=== PATIENT | male | born 1965 | race Caucasian/White ===

== ENCOUNTER 2021-07-06 12:08 | Emergency (ER) | payer MEDICARE, MEDICAID, SELFPAY ==
[2021-07-06 12:11] VITALS: BP 127/72; PULSE 98; RESP 17; TEMP 36.1; O2SAT 92; BMI 51.0
--- NOTE | 2021-07-06 12:28 | CT_ITS ---
STUDY: CTA CHEST REASON FOR EXAM: Male, 55 years old. 2 day history of hemoptysis. Known lung mass. RADIATION DOSAGE (If Supplied By Facility): CTDIvol = ( 26.50 ) mGy, DLP = ( 818.69 ) mGycm TECHNIQUE: The examination was performed with the intravenous administration of IV 100mL Isovue-370. Post-processing of the angiographic images was performed, with multiplanar reformation and 3D reconstruction. Individualized dose optimization techniques were used for this CT. COMPARISON: None. FINDINGS: Normal enhancement of the main pulmonary artery and right and left pulmonary arteries. Normal enhancement of the bilateral peripheral pulmonary arteries. There is no demonstrated pulmonary embolism. Normal thoracic aorta and visualized great vessels. There is no demonstrated aortic dissection. Normal heart and pericardium. Normal mediastinum. Normal hilar regions. Normal visualized trachea and bronchi. Volume loss in the left hemithorax. Consolidation and mass lesion in the left hilar region with overlying loss and airspace disease in the left upper lobe and lingular segment of the left upper lobe. Loculated pleural effusion. Wedge-shaped infiltrate in the anterior aspect of the left lower lobe. Normal chest wall structures. There are degenerative changes of thoracic spine. The patient is status post cholecystectomy. Small hiatal hernia. CT/CTA Chest W/WO Contrast IMPRESSION: Mass and volume loss in the left perihilar region. Obstructive atelectasis/pneumonitis in the lingular segment of the left upper lobe as well as the left upper lobe. Loculated left pleural effusion. Electronically Signed: Jovany Rasmussen MD at 13:47 EDT ,
[2021-07-06 12:29] VITALS: BP 87/60; PULSE 85; RESP 18; O2SAT 86
--- NOTE | 2021-07-06 12:32 | EDS_ITS ---
HPI <REBECCA Valadez - Last Filed: 07/06/21 14:49> History of Present Illness Chief Complaint: Cough Narrative Narrative: 55-year-old male with history of obesity, hyperlipidemia, diabetes, congestive heart failure, chronic pain syndrome presents to the emergency department with complaints of coughing up blood. Patient was seen 3 months ago for shortness of breath, patient was seen at another facility, patient was diagnosed with a mass to his lung on CAT scan, was told to follow-up however never did. Patient states that no one called him. Patient states that for the last 2 days, he has been unable to sleep because every time he lays flat he is choking and when he coughs it is blood sputum. Patient denies any fevers or chills. Patient denies any worsening shortness of breath, chest pain, lower extremity swelling. PFSH <REBECCA Valadez - Last Filed: 07/06/21 14:49> PFSH Home Medications cephalexin 500 mg PO Q6 #40 capsule 02/10/16 [Rx Last Taken Unknown] sulfamethoxazole-trimethoprim 1 tab PO BID #20 tablet 02/10/16 [Rx Last Taken Unknown] albuterol sulfate 1 mg INHALATION Q8H PRN PRN 07/06/21 [History Last Taken Unkno wn] ammonium lactate 1 applic TOPICAL TID 07/06/21 [History Last Taken Unknown] atorvastatin 80 mg PO QHS 07/06/21 [History Last Taken Unknown] fluticasone propion-salmeterol [Advair HFA] 1 puff INHALATION BID 07/06/21 [History Last Taken Unknown] fluticasone propionate 1 spray INTRANASAL DAILY 07/06/21 [History Last Taken Unknown] furosemide 20 mg PO DINNER 07/06/21 [History Last Taken Unknown] furosemide 40 mg PO BREAKFAST 07/06/21 [History Last Taken Unknown] hydrocodone-acetaminophen 1 - 2 tab PO Q6H PRN PRN 07/06/21 [History Last Taken Unknown] levofloxacin 750 mg PO DAILY #7 tab 07/06/21 [Rx Last Taken Unknown] lisinopril 10 mg PO DAILY 07/06/21 [History Last Taken Unknown] metformin 750 mg PO DAILY 07/06/21 [History Last Taken Unknown] pantoprazole 20 mg PO DAILY 07/06/21 [History Last Taken Unknown] potassium chloride 20 meq PO DAILY 07/06/21 [History Last Taken Unknown] semaglutide [Ozempic] mg SUBCUT 07/06/21 [History Last Taken Unknown] semaglutide [Ozempic] mg SUBCUT QWEEK 07/06/21 [History Last Taken Unknown] Allergy/AdvReac Type Severity Reaction Status Date / Time No Known Allergies Allergy Verified 07/06/21 12:10 Social History Smoking Status: Current every day smoker tobacco type: cigarettes ROS <REBECCA Valadez - Last Filed: 07/06/21 14:49> ROS ED ROS Narrative Constitutional: Negative for fever, chills, weight loss, weakness Eyes: Negative for vision loss, vision change, double vision ENT: Negative for any sore throat, ear pain, congestion Cardiovascular: Negative for any chest pain, tightness, palpitations, racing heartbeat Respiratory: Negative for any shortness of breath, shortness of breath on exertion. Positive for cough, sputum production, hemoptysis, orthopnea Gastrointestinal: Negative for any abdominal pain, nausea, vomiting, diarrhea, constipation, blood in stool, blood in vomit : Negative for any urinary frequency, incontinence, dysuria, retention, blood in urine Muscle skeletal: Negative for any muscle joint pain, stiffness, myalgias, arthralgias, neck pain, back pain Neurological: Negative for any headache, dizziness, syncope, numbness or tingling Skin: Negative for any rashes, lumps, itching, abrasions, lacerations Psychiatric: Negative for any depression, anxiety, stress, suicidal ideation, homicidal ideation Hematologic: Negative for any easy bruising, excessive bruising, easy bleeding Allergies: Negative for any eczema, hives, rash EXAM <REBECCA Valadez - Last Filed: 07/06/21 14:49> Physical Exam Narrative Exam Narrative: Vital signs reviewed. Patient is sitting in room, patient is in no distress. Patient is able to talk but senses. Patient body habitus is large HEET: Head normocephalic atraumatic, TMs clear bilaterally. Posterior pharynx is clear, moist mucous membranes. Nares clear bilaterally. Neck: Supple with no lymphadenopathy or tenderness. No signs of meningismus, negative jolt sign. Cardiac: Regular rate and rhythm no murmurs gallops or rubs, equal peripheral pulses bilaterally. Respiratory: Patient does have clear left lung, patient's right lung was somewhat diminished. Negative for any wheezing, crackles.. No chest tenderness. Abdomen: Soft, nontender, nondistended. No abdominal bruit or pulsatile masses. No hepatosplenomegaly Extremities: No peripheral edema, no signs of gross trauma or deformity. Active full range of motion of all extremities. Neuro: Cranial nerves II through XII intact, no focal neurological deficits. Skin: Clean dry and intact with no rash, purpura, petechiae, vesicles or pustules. Backslash flank: No CVA tenderness, no midline spinal tenderness, no deformity. Psych: Normal mood and affect. No SI, HI or acute psychosis. Const Vital Signs: 07/06/21 12:11 07/06/21 12:29 07/06/21 12:54 Temperature 97.0 F L Temperature Source Temporal Pulse Rate 98 85 Respiratory Rate 17 18 Respiratory Effort Normal Respiratory Depth Normal Respiratory Pattern Normal Blood Pressure 127/72 H 87/60 L Blood Pressure Mean 90 69 Pulse Ox 92 86 Oxygen Delivery Method Room Air Room Air Room Air Oxygen Flow Rate (L/min) 07/06/21 13:10 07/06/21 14:14 07/06/21 14:50 Temperature Temperature Source Pulse Rate 84 77 80 Respiratory Rate 20 H 17 19 H Respiratory Effort Respiratory Depth Respiratory Pattern Blood Pressure 100/62 112/61 107/72 Blood Pressure Mean 74 78 Pulse Ox 95 93 97 Oxygen Delivery Method Nasal Cannula Room Air Oxygen Flow Rate (L/min) 3 <Clinton Chavez MD - Last Filed: 07/06/21 22:01> Physical Exam Const Vital Signs: 07/06/21 12:11 07/06/21 12:29 07/06/21 12:54 Temperature 97.0 F L Temperature Source Temporal Pulse Rate 98 85 Respiratory Rate 17 18 Respiratory Effort Normal Respiratory Depth Normal Respiratory Pattern Normal Blood Pressure 127/72 H 87/60 L Blood Pressure Mean 90 69 Pulse Ox 92 86 Oxygen Delivery Method Room Air Room Air Room Air Oxygen Flow Rate (L/min) 07/06/21 13:10 07/06/21 14:14 07/06/21 14:50 Temperature Temperature Source Pulse Rate 84 77 80 Respiratory Rate 20 H 17 19 H Respiratory Effort Respiratory Depth Respiratory Pattern Blood Pressure 100/62 112/61 107/72 Blood Pressure Mean 74 78 Pulse Ox 95 93 97 Oxygen Delivery Method Nasal Cannula Room Air Oxygen Flow Rate (L/min) 3 [facility] <REBECCA Valadez - Last Filed: 07/06/21 14:49> [facility] Narrative Medical decision making narrative: Patient appears well, patient appears nontoxic, vital signs are stable. While patient was resting in the room, patient did drop to 87% on pulse oxygenation, patient states he does have oxygen at home as well as a portable. Patient secondary to knowing he has a lung mass did receive a full respiratory work-up with a CTA chest. Patient's CBC was unremarkable, patient's chemistry showed hyponatremia with slight low chloride. Patient's CT scan of the chest with IV contrast showed a mass and volume loss in left perihilar region. Obstructive atelectasis/pneumonitis in the lingula segment of the left upper lobe as well as left upper lobe. Loculated left pleural effusion. I did speak with the hospitalist, due to the patient having oxygen at home, this work-up for the mass in his lungs can be worked up outpatient. Patient is aware and is happy with the plan of care. Patient will follow up with Dr. Correa with pulmonology. Patient given strict return precautions to return for any signs or symptoms of infection. Patient will be placed on a 7-day course of Levaquin and will contact his primary care doctor today or tomorrow to have this set up with Dr. Correa. He will use his oxygen that he has at home and instructed return for any worsening concerns. Lab Data Attestation: I reviewed the patient's lab results. Labs: Laboratory Results - last 24 hr 07/06/21 07/06/21 07/06/21 12:39 12:39 12:39 WBC 5.7 RBC 5.14 Hgb 13.0 Hct 44.3 MCV 86.2 MCH 25.3 L MCHC 29.3 L RDW Std Deviation 58.4 H RDW Coeff of Jean-Paul 18.7 H Plt Count 125 L MPV 9.2 Immature Gran % (Auto) 0.200 Neut % (Auto) 72.5 H Lymph % (Auto) 19.1 Wright % (Auto) 6.4 Eos % (Auto) 1.4 Baso % (Auto) 0.4 Absolute Neuts (auto) 4.1 Absolute Lymphs (auto) 1.08 Nucleated RBC % 0 Sodium 132 L Potassium 4.2 Chloride 93 L Carbon Dioxide 36.0 H Anion Gap 3 L BUN 9 Creatinine 0.76 Estim Creat Clear Calc 107.24 Est GFR (MDRD) Af Amer 137 Est GFR (MDRD) Non-Af 113 BUN/Creatinine Ratio 11.9 Glucose 144 H Calcium 8.6 B-Natriuretic Peptide 32.1 Radiography Diagnostic Testing: Clinical Impression(s) from Imaging Studies Chest CTA 07/06/21 12:28 IMPRESSION: Mass and volume loss in the left perihilar region. Obstructive atelectasis/pneumonitis in the lingular segment of the left upper lobe as well as the left upper lobe. Loculated left pleural effusion. Electronically Signed: Jovany Rasmussen MD at 13:47 EDT , <Clinton Chavez MD - Last Filed: 07/06/21 22:01> [facility] MDM Narrative Medical decision making narrative: I have personally performed a face to face assessment of the patient and have reviewed the JOIE Note. I performed a substantive portion of the visit including all aspects of the following. My watters findings include: History is diagnosed with left lung mass 3 months ago after double pneumonia. Has not been able to follow-up. Presents with hemoptysis. Exam is [afebrile. Vital signs noted. No active hemoptysis. Regular rate and rhythm. Decreased breath sounds left lung.] Medical Decision Making [check labs. Check CTA. Discussed with pulmonology and hospitalist. Inpatient bronchoscopy unavailable. Patient has oxygen at home. Discharged to follow-up with pulmonology as an outpatient for bronchoscopy.] Other additions or changes: [None] Lab Data Attestation: I reviewed the patient's lab results. Labs: Laboratory Results - last 24 hr 07/06/21 07/06/21 07/06/21 12:39 12:39 12:39 WBC 5.7 RBC 5.14 Hgb 13.0 Hct 44.3 MCV 86.2 MCH 25.3 L MCHC 29.3 L RDW Std Deviation 58.4 H RDW Coeff of Jean-Paul 18.7 H Plt Count 125 L MPV 9.2 Immature Gran % (Auto) 0.200 Neut % (Auto) 72.5 H Lymph % (Auto) 19.1 Wright % (Auto) 6.4 Eos % (Auto) 1.4 Baso % (Auto) 0.4 Absolute Neuts (auto) 4.1 Absolute Lymphs (auto) 1.08 Nucleated RBC % 0 Sodium 132 L Potassium 4.2 Chloride 93 L Carbon Dioxide 36.0 H Anion Gap 3 L BUN 9 Creatinine 0.76 Estim Creat Clear Calc 107.24 Est GFR (MDRD) Af Amer 137 Est GFR (MDRD) Non-Af 113 BUN/Creatinine Ratio 11.9 Glucose 144 H Calcium 8.6 B-Natriuretic Peptide 32.1 Radiography Diagnostic Testing: Clinical Impression(s) from Imaging Studies Chest CTA 07/06/21 12:28 IMPRESSION: Mass and volume loss in the left perihilar region. Obstructive atelectasis/pneumonitis in the lingular segment of the left upper lobe as well as the left upper lobe. Loculated left pleural effusion. Electronically Signed: Jovany Rasmussen MD at 13:47 EDT , Discharge Plan Triage Chief Complaint: Cough ED Midlevel Provider: aSm Mckeon ED Provider: Clinton Chavez Dx/Rx/DC Orders Clinical Impression: Lung mass, Pleural effusion, left, Pneumonitis Instructions: What Is Lung Cancer?, ED Pleural Effusion, ED Pneumonia (Adult) Prescriptions: New levofloxacin 750 mg tablet 750 mg PO DAILY Qty: 7 RF: 0 No Action sulfamethoxazole-trimethoprim 1 TABLET tablet 1 tab PO BID Qty: 20 RF: 0 cephalexin 500 MG capsule 500 mg PO Q6 Qty: 40 RF: 0 furosemide 40 mg tablet 40 mg PO BREAKFAST RF: 0 atorvastatin 80 mg tablet 80 mg PO QHS RF: 0 hydrocodone-acetaminophen 5-325 mg tablet 1 - 2 tab PO Q6H PRN PRN (Reason: Pain) RF: 0 pantoprazole 20 mg tablet,delayed release (DR/EC) 20 mg PO DAILY RF: 0 lisinopril 10 mg tablet 10 mg PO DAILY RF: 0 ammonium lactate 12 % cream 1 applic TOPICAL TID RF: 0 fluticasone propionate 50 mcg/actuation spray,suspension 1 spray INTRANASAL DAILY RF: 0 metformin 750 mg tablet extended release 24 hr 750 mg PO DAILY RF: 0 Advair HFA 115-21 mcg/actuation HFA aerosol inhaler 1 puff INHALATION BID RF: 0 potassium chloride 20 mEq tablet extended release 20 meq PO DAILY RF: 0 Ozempic 1 mg/dose (4 mg/3 mL) pen injector SUBCUT RF: 0 furosemide 40 mg tablet 20 mg PO DINNER RF: 0 albuterol sulfate 2.5 mg /3 mL (0.083 %) solution for nebulization 1 mg inhalation Q8H PRN PRN (Reason: Shortness Of Breath) RF: 0 Ozempic 1 mg/dose (4 mg/3 mL) pen injector SUBCUT QWEEK RF: 0 Primary Care Provider: Milena Guevara Referrals: Ag Correa MD [STAFF PHYSICIAN] - 3-5 Days Milena Guevara DO [Primary Care Provider] - Activity Restrictions/Additional Instructions: You are going to be discharged today, you will be using your at home oxygen because you are hypoxic. You will be placed on antibiotics called [facility] for any pneumonia. I am concerned that you have lung cancer, you need to follow-up with your PCP, and have them talk to the station engineer main line that I referred you to. You need to return here for any worsening problems, difficulty breathing, fever or chills. Print Language: Andorran Disposition Disposition: Home, Self Care Discharge Date/Time: 07/06/21 14:57
[2021-07-06 12:47] LABS: Absolute Lymphocyte Count 1.08 X10^3/uL (0.83-4.51); Absolute Neutrophil Count 4.1 X10^3/uL (2.0-7.7); Basophil# 0.02 X10^3/uL; Basophil% 0.4 % (0-1); Eosinophil# 0.08 X10^3/uL; Eosinophils% 1.4 % (0-5); Hematocrit 44.3 % (40-54); Lymphocyte # 1.08 X10^3/ul (0.83-4.51); Lymphocyte % 19.1 % (19-41); Mean Corp Hgb Conc 29.3 g/dL (32-36); Mean Corpuscular Hgb 25.3 pg (27.0-32.0); Mean Corpuscular Volume 86.2 fL (80-94); Mean Platelet Vol. 9.2 fl (6.2-12.0); Monocyte# 0.36 X10^3/uL; Monocyte% 6.4 % (0-10); NRBC Flagged by Analyzer 0 % (0-5); Neutrophil % 72.5 % (47-70); Platelet Count 125 K/mm3 (150-450); RBC Distribution Width CV 18.7 % (11.6-14.6); RBC Distribution Width SD 58.4 fl (35.1-43.9); Red Blood Count 5.14 M/mm3 (4.6-6.2); White Blood Count 5.7 K/mm3 (4.4-11.0)
[2021-07-06 12:54] VITALS: O2SAT 86
[2021-07-06 13:00] LABS: Anion Gap 3 (5-15); BUN 9 mg/dL (7-18); BUN/Creat Ratio 11.9 RATIO (10-20); Calcium,Total 8.6 mg/dL (8.5-10.1); Chloride 93 mmol/L (98-107); Creatinine, Serum 0.76 mg/dL (0.70-1.30); EST Glomerular Filtration Rate 113 mL/min (>60); Est Glom Filt Rate - Afr Amer 137 mL/min (>60); Estimated Creatinine Clearance 107.24 ml/min; Glucose 144 mg/dL (74-106); Potassium 4.2 mmol/L (3.5-5.1); Sodium Level 132 mmol/L (136-145)
[2021-07-06 13:04] LABS: BNP,B-Type NATRIURETIC PEPTIDE 32.1 pg/mL (0-100)
[2021-07-06 13:10] VITALS: BP 100/62; PULSE 84; RESP 20; O2SAT 95
--- NOTE | 2021-07-06 14:10 | NURSING ---
DR ANDREWS FOR ER DOC
[2021-07-06 14:14] VITALS: BP 112/61; PULSE 77; RESP 17; O2SAT 93
[2021-07-06 14:50] VITALS: BP 107/72; PULSE 80; RESP 19; O2SAT 97
== END 2021-07-06 14:57 | disposition home or self-care (01) ==
PROVIDERS: Nurse Practitioner; Emergency Provider Emergency Medicine; PCP Family Medicine; Visit Provider Emergency Medicine
DX: R91.8 Other nonspecific abnormal finding of lung field (principal); I50.9 Heart failure, unspecified; E11.9 Type 2 diabetes mellitus without complications; J90 Pleural effusion, not elsewhere classified; J18.9 Pneumonia, unspecified organism; E66.9 Obesity, unspecified; E78.5 Hyperlipidemia, unspecified; G89.4 Chronic pain syndrome; Z79.899 Other long term (current) drug therapy; Z79.82 Long term (current) use of aspirin; F17.210 Nicotine dependence, cigarettes, uncomplicated; E87.1 Hypo-osmolality and hyponatremia
CPT/HCPCS: 71275; 80048; 83880; 85025; 87428; 99284; Q9967

== ENCOUNTER → 2021-07-25 | Outpatient (CLI) | payer MEDICARE, MEDICAID, SELFPAY ==
[2021-07-25 11:26] LABS: Platelet Count 124 K/mm3 (150-450)
[2021-07-25 11:38] LABS: International Normalized Ratio 1.1; Prothrombin Time (Protime)PT. 13.4 SECONDS (11.7-14.9)
== END | disposition home or self-care (01) ==
LOC: PAVLAB 11:00
PROVIDERS: PCP Family Medicine; Referring Provider Internal Medicine Critical Care Medicine; Visit Provider Internal Medicine Critical Care Medicine
DX: J90 Pleural effusion, not elsewhere classified (principal)
CPT/HCPCS: 36415; 85049; 85610

== ENCOUNTER 2021-07-28 16:47 | Observation (INO) | payer MEDICARE, SELFPAY ==
--- NOTE | 2021-07-24 06:08 | PCM.HP.STD ---
HPI - General HPI Narrative The patient is a 55-year-old male who initially presented to the outpatient pulmonary clinic on July 13 in referral for the evaluation of a lung mass. The patient was recently evaluated in the emergency department on July 06 after having presented with hemoptysis. CTA chest showed no evidence for pulmonary embolism, but did demonstrate a loculated left-sided pleural effusion along with what appears to be a left hilar lung mass with subsequent collapse of the left upper lobe. Ironically, in April 2021, the patient was admitted to [facility] with suspected pneumonia. A CTA chest was completed at that time as well and demonstrated a large left hilar lung mass measuring approximately 6 x 6.6 cm causing left upper lobe bronchus obstruction and subsequent collapse. The patient was supposed to follow-up for further work-up after his discharge, but failed to do so until his office visit on July 13. The patient has an approximate [id number] smoking history and continues to smoke 2 to 3 cigarettes/day. 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 The patient is now on disability. There has been concerned that the patient has underlying sleep apnea, along with heart failure with preserved ejection fraction. Nevertheless, the patient has never completed a sleep study, as he is not interested in utilizing any form of nocturnal Pap therapy. In light of the patient's tobacco abuse history and CT imaging raising concern for potential malignancy, discussion was undertaken regarding the need for direct tissue biopsy for further evaluation. [facility] Medical History Abnormal EKG Arthralgia of hand BMI 50.0-59.9, adult Chronic back pain greater than 3 months duration Diastolic congestive heart failure Fatigue GERD (gastroesophageal reflux disease) History of chronic respiratory failure History of rectal bleeding Neck muscle spasm Non-insulin dependent type 2 diabetes mellitus Osteoarthritis Polycythemia secondary to smoking Seasonal allergies Secondary restless legs syndrome Sleep apnea, obstructive Smoker Thrombocytopenia Home Medications albuterol sulfate 1 mg INHALATION Q8H PRN PRN 07/06/21 [History Last Taken Unknown] ammonium lactate 1 applic TOPICAL TID 07/06/21 [History Last Taken Unknown] atorvastatin 80 mg PO QHS 07/06/21 [History Last Taken Unknown] fluticasone propion-salmeterol [Advair HFA] 1 puff INHALATION BID 07/06/21 [History Last Taken Unknown] fluticasone propionate 1 spray INTRANASAL DAILY 07/06/21 [History Last Taken Unknown] furosemide 20 mg PO DINNER 07/06/21 [History Last Taken Unknown] furosemide 40 mg PO BREAKFAST 07/06/21 [History Last Taken Unknown] hydrocodone-acetaminophen 1 - 2 tab PO Q6H PRN PRN 07/06/21 [History Last Taken Unknown] lisinopril 10 mg PO DAILY 07/06/21 [History Last Taken Unknown] metformin 750 mg PO DAILY 07/06/21 [History Last Taken Unknown] pantoprazole 20 mg PO DAILY 07/06/21 [History Last Taken Unknown] potassium chloride 20 meq PO DAILY 07/06/21 [History Last Taken Unknown] aspirin 325 mg tablet 325 mg PO DAILY 07/12/21 [History Last Taken Unknown] magnesium oxide 420 mg tablet 420 mg PO DAILY 07/12/21 [History Last Taken Unknown] semaglutide 1 mg/dose (2 mg/1.5 mL) subcutaneous pen injector 1 mg SUBCUT QWEEK 07/12/21 [History Last Taken Unknown] Allergy/AdvReac Type Severity Reaction Status Date / Time No Known Allergies Allergy Verified 07/13/21 11:21 Family History Mother Heart disease Father Diabetes Brother Heart disease Surgical History Hx laparoscopic cholecystectomy Social History (Updated 07/13/21 @ 11:22 by Marcella Sultana) Smoking Status: Current some day smoker tobacco type: cigarettes Tobacco: How many years used: 40 ROS ROS Narrative As per HPI. Review of Systems ROS Unobtainable: other Physical Exam Const alert and no apparent distress General Appearance: cooperative HEENT normocephalic, head/scalp atraumatic and EAC's normal Eyes PERRL and EOMs intact bilaterally Neck supple General: trachea midline Resp normal respiratory effort Auscultation: diminished lung sounds Cardio regular rate and regular rhythm GI normal to inspection, nondistended, normoactive bowel sounds Extremity no clubbing, cyanosis or edema Skin no rashes or lesions noted Neuro no focal motor deficits Psych affect normal Appearance: appropriate Assessment & Plan Assessment/Plan (1) Lung mass: PLAN: The patient presented to our office on July 13 for the evaluation of a left hilar lung mass leading to left upper lobe collapse, which was initially identified on outside CT imaging in April. However, the patient failed to follow-up. He then presented to the emergency department approximately 1 week ago with hemoptysis. Repeat imaging was obtained and again demonstrated the left hilar lung mass and a small left sided loculated effusion. In light of the patient's smoking history, these findings are certainly concerning for malignancy. Therefore, I did recommend that we proceed with bronchoscopy to facilitate tissue sampling. EBUS will be employed as well to assess the mediastinum. Following a discussion regarding the risks and benefits of the procedure, the patient is in agreement to proceed.
[2021-07-28] VITALS (26 sets, daily range): BP systolic 98–147; BP diastolic 51–83; PULSE 73–92; RESP 12–33; TEMP 36.3–36.7; O2SAT 78–100; BMI 50.8
--- NOTE | 2021-07-28 | IMM_PTH ---
PATIENT: SHAAN WHITAKER LOC: PCU U#:[id number] AGE/SX: 55/M ROOM: [facility] RE07/28/[address]: Dr. Chris Kingsley DO : 1965 BED: 1 DIS: 07/29/2021 SPEC #: [id number] RECD: 07/31/21 10:28 STATUS: SOUFatemeh REQ #: [id number] [place]: 07/28/21 00:[address]: Chris Kingsley DEPT: IMMUNOHISTOCHEMISTRY RECD BY: Oksana Frazier ENTERED: 07/31/21 10:31 SP TYPE: IMMUNO OTHR DR: MD Dr. Nilson Waldron MD Dr. Jenna Frakowski, DO Jamila Moreno, DIPLOMATIC INTERPRETER/TRANSLATOR-C Tissues: C - Left upper lobe of lung, NOS Procedures: NAPSIN A (add) CK20 (add) CK5-6 (add) CK7 (add) CK8 (add) MORENO-2 (add) KI-67 (add) P53 (add) TTF1 (add) Pankeratin (initial) P40 (add) CDX2 (add) PHYSICIAN & INSTITUTION [place] [id number] SPECIMEN INFORMATION: Tissue Source: C ? Endobronchial biopsy Clinical Info: Lung mass Specimen Number: [id number] CPT code: 80340, 52234 x11 METHODOLOGY: Deparaffinized sections of prefer/formalin-fixed tissue or PAP/DQ stained slides are incubated with monoclonal/polyclonal antibodies/oligonucleotide probes. Localization is made via biotin free immunoperoxidase method. Appropriate controls are performed and reacted as expected. Results on target cell population are indicated in the following table: RESULTS: ANTIBODY / CLONE RESULT Block C AE1-3 (AE1/AE3/PCK26) positive CK7 (OV-TL12/30) negative CK8 ([id number]) positive CK20 (KS20.8) negative MORENO-2 (SP21) negative CDX2 ([id number]) negative TTF-1 (8G7G3/1) negative Napsin A (Rabbit Polyclonal) negative CK5-6 (D5 & 1684) positive P40 (BC28) positive P53 (DO-7) negative Ki-67 (30-9) positive, 75% These tests were developed and their performance characteristics determined by [facility]. They may not have been cleared or approved by the U.S. Food and Drug Administration. The FDA has determined that such clearance or approval is not necessary. The above immunohistochemical/dualISH markers are ordered and reviewed by the Pathologist. INTERPRETATION: Desiree Endobronchial biopsy: Squamous cell carcinoma. AM:shelbi 08/01/2021
[2021-07-28] MEDS: Lactated Ringers 1,000 ML 30 ML IV (11:40)
--- NOTE | 2021-07-28 12:00 | ASPIGT_PTH ---
PATIENT: SHAAN WHITAKER LOC: [facility] U#:[id number] AGE/SX: 55/M ROOM: [facility] RE07/28/[address]: Dr. Chris Kingsley DO : 1965 BED: 1 DIS: 07/29/2021 SPEC #: [id number] RECD: 07/28/21 13:29 STATUS: CHRISTINA REQ #: [id number] LAMONT: 07/28/21 12:[address]: Chris Kingsley DEPT: SURGICAL PATHOLOGY RECD BY: Cat Givens ENTERED: 07/28/21 13:31 SP TYPE: ASP RAD OTHR DR: Dr. Milena Guevara DO Tissues: A - Lung, NOS B - Lung, NOS Procedures: FNA Specimen Adequacy Special Stain Group II Surgery Specimen Level IV Imprint (control) HEADER OPERATION: Endobronchial biopsy PRE-OP DIAGNOSIS: Lung mass TISSUE SUBMITTED: A - Endobronchial brushings #1, B - Endobronchial brushings #2, Endobronchial biopsy MICROSCOPIC DIAGNOSIS A. Endobronchial mass brushings (smears & cell block): Negative for malignant cells. B. Endobronchial biopsy (smears): Non-small cell carcinoma, squamous cell carcinoma. C. Endobronchial lung mass, biopsy: Non-small cell carcinoma, squamous cell carcinoma. See comment. AM:shelbi 07/31/2021 COMMENT The specimen is evaluated at the time of procedure by Dr. Coffey. Immediate Evaluation: A. Benign squamous cells and blood. B. Non-small cell carcinoma. C. Immunohistochemistry ([id number]) supports the above diagnosis. See corresponding EBUS ([id number]). Case has been reviewed in consultation with Dr. Go who concurs with the above diagnosis. IDC:SJ MICROSCOPIC DESCRIPTION Slides are reviewed. GROSS DESCRIPTION A - Received is approximately 0.2 ml of reddish-bowen fluid labeled with the patient's name and designated per the requisition as endobronchial mass needle brushings #1. Two smears are prepared and brush is washed in fixative for cell block. B - Received is approximately 0.2 ml of reddish-bowen fluid labeled with the patient's name and designated per the requisition as endobronchial mass needle aspiration #2. Two smears are prepared. C - Received in fixative is one container labeled with the patient's name and designated endobronchial lung mass biopsy. The specimen consists of one irregular fragment of light bowen soft tissue that measures 0.2 x 0.1 x <0.1 cm. The specimen is totally submitted in one cassette. / AM:shelbi 07/28/2021 TC:0 CPT: 30748, 94765 x2, 63378 x2 ADDENDUM ADDENDUM ADDENDUM ADDENDUM ADDENDUM ADDENDUM 09/18/2021 09:35 ADDENDUM 09/20/2021 09:59 ADDENDUM 09/18/2021 09:35 ADDENDUM 09/18/2021 09:35 ADDENDUM 09/18/2021 09:35 ADDENDUM 09/18/2021 09:35 PD-L1 (KEYTRUDA) IMMUNOHISTOCHEMICAL ANALYSIS FROM [facility] RESULTS: Tumor proportion score: 55% / Positive Please see complete report in e-chart or EMR [facility] ADVANCED LUNG CANCER NGS REPORT FROM [facility] RESULT SUMMARY: Abnormal IMMUNOTHERAPY BIOMARKERS: Tumor Mutation Dittmer: High (14.9 Mutations / MB) Microsatellite Instability: MSI Negative PERTINENT NEGATIVE RESULTS: The following genes are NEGATIVE for clinically relevant mutations. Mutational hotspots and surrounding exonic regions were interrogated for DNA level point mutations and indels (fusions not assayed). AKT1, ALK, ATR, BRAF, CHEK1, DDR2, EGFR, ERBB2, ERBB3, FGFR1, KRAS, MAP2K1, MET, NRAS, NTRK1, PIK3CA, POLD1, POLE, ROS1, STK11, TERT Please see complete report in e-chart or EMR
--- NOTE | 2021-07-28 12:00 | ASPIG_PTH ---
PATIENT: SHAAN WHITAKER LOC: [facility] U#:[id number] AGE/SX: 55/M ROOM: [facility] RE07/28/[address]: Dr. Chris Kingsley DO : 1965 BED: 1 DIS: 07/29/2021 SPEC #: [id number] RECD: 07/28/21 13:31 STATUS: CHRISTINA REQ #: [id number] LAMONT: 07/28/21 12:[address]: Chris Kingsley DEPT: CYTOLOGY RECD BY: Cat Givens ENTERED: 07/28/21 13:32 SP TYPE: ASP OUT OTHR DR: Dr. Milena Guevara, DO Tissues: A - Lung, NOS B - Lung, NOS C - Lung, NOS D - Lung, NOS E - Lung, NOS F - Lung, NOS G - Lung, NOS Procedures: FNA Specimen Adequacy Special Stain Group II Surgery Specimen Level IV Cytology Other HEADER OPERATION: EBUS PRE-OP DIAGNOSIS: Lung mass TISSUE SUBMITTED: A - EBUS, TBNA, site 7 #1, B - EBUS, TBNA, site 7 #2, C - EBUS, TBNA, site 7 #3, D - EBUS, TBNA, site 10L #4, E - EBUS, TBNA, site 10L #5, F - EBUS, TBNA, site 7, G - EBUS, TBNA, site 10L DIAGNOSIS CYTOLOGY A. EBUS, TBNA, site 7 #1: Negative for malignant cells. Lymphocytes consistent with lymph node. B. EBUS, TBNA, site 7 #2: Negative for malignant cells. Lymphocytes consistent with lymph node. C. EBUS, TBNA, site 7 #3: Negative for malignant cells. D. EBUS, TBNA, site 10L #4: Negative for malignant cells. Lymphocytes consistent with lymph node. E. EBUS, TBNA, site 10L #5: Negative for malignant cells. Lymphocytes consistent with lymph node. F. EBUS, TBNA, site 7 (cell block): Negative for malignant cells. Unremarkable fragment of cartilage. G. EBUS, TBNA, site 10L (cell block): Negative for malignant cells. AM:shelbi 07/31/2021 COMMENT The specimen is evaluated at the time of procedure by Dr. Coffey. Rapid Onsite Evaluation: A. EBUS, TBNA, site 7 #1: Negative for malignant cells. Lymphocytes consistent with lymph node. B. EBUS, TBNA, site 7 #2: Negative for malignant cells. Lymphocytes consistent with lymph node. C. EBUS, TBNA, site 7 #3: Negative for malignant cells. D. EBUS, TBNA, site 10L #4: Negative for malignant cells. Lymphocytes consistent with lymph node. E. EBUS, TBNA, site 10L #5: Negative for malignant cells. Lymphocytes consistent with lymph node. Please see corresponding surgical specimen ([id number]). Case has been reviewed in consultation with Dr. Go who concurs with the above diagnosis. IDC:SJ CYTOLOGY STUDY Slides are reviewed. CYTOLOGY GROSS A - Received labeled with the patient's name and and designated EBUS, TBNA, site 7 #1. The specimen consists of two stained smears for NEDRA (Rapid Onsite Evaluation). B - Received labeled with the patient's name and and designated EBUS, TBNA, site 7 #2. The specimen consists of two stained smears for NEDRA. C - Received labeled with the patient's name and and designated EBUS, TBNA, site 7 #3. The specimen consists of two stained smears for NEDRA. D - Received labeled with the patient's name and and designated EBUS, TBNA, site 10L #4. The specimen consists of two stained smears for NEDRA. E - Received labeled with the patient's name and and designated EBUS, TBNA, site 10L #5. The specimen consists of two stained smears for NEDRA. F - Received in RPMI is 20 ml of pink, needle rinsed fluid labeled with the patient's name and and designated EBUS, TBNA, site 7. The specimen is submitted for cell block preparation. G - Received in RPMI is 20 ml of pink, needle rinsed fluid labeled with the patient's name and and designated EBUS, TBNA, site 10L. The specimen is submitted for cell block preparation. / AM:shelbi 07/28/2021 TC:0 CPT: 38262 x2, 90462 x4, 50991 x2, 64036 x2
--- NOTE | 2021-07-28 13:25 | OP.BRONCH_ITS ---
Patient Name: Evelio Stacy Procedure Date: 07/28/2021 11:05 AM Date of : 1965 Age: 55 Procedure: Bronchoscopy Indications: Mediastinal adenopathy, Lung mass suspicious for cancer Providers: Chris Kingsley MD Referring MD: Chris Kingsley MD Medicines: See the Anesthesia note for documentation of the administered medications Complications: No immediate complications Procedure: Pre-Anesthesia Assessment: - A History and Physical has been performed. Patient meds and allergies have been reviewed. The risks and benefits of the procedure and the sedation options and risks were discussed with the patient. All questions were answered and informed consent was obtained. Patient identification and proposed procedure were verified prior to the procedure by the physician and the nurse in the procedure room. Mental Status Examination: alert and oriented. Airway Examination: normal oropharyngeal airway. Respiratory Examination: clear to auscultation. CV Examination: normal. ASA Grade Assessment: III - A patient with severe systemic disease. After reviewing the risks and benefits, the patient was deemed in satisfactory condition to undergo the procedure. The anesthesia plan was to use general anesthesia. Immediately prior to administration of medications, the patient was re-assessed for adequacy to receive sedatives. The heart rate, respiratory rate, oxygen saturations, blood pressure, adequacy of pulmonary ventilation, and response to care were monitored throughout the procedure. The physical status of the patient was re-assessed after the procedure. After I obtained informed consent, the scope was passed under direct vision. Throughout the procedure, the patient's blood pressure, pulse, and oxygen saturations were monitored continuously. The ultrasound bronchoscope was introduced through the mouth, via laryngeal mask airway and advanced to the tracheobronchial tree. The procedure was accomplished without difficulty. The patient tolerated the procedure well. Findings: The laryngeal mask airway is in good position. The vocal cords appear normal. The subglottic space is normal. The trachea is of normal caliber. The wanda is sharp. The tracheobronchial tree of the right lung was examined to at least the first subsegmental level. Bronchial mucosa and anatomy are normal; there are no endobronchial lesions, and no secretions. Left Lung Abnormalities: A completely obstructing mass was found in the left upper lobe. The mass was endobronchial. The lesion was not traversed. An endobronchial biopsy was performed in the left upper lobe using forceps and sent for routine cytology. One sample was obtained. Endobronchial needle aspiration of a mass was performed in the left upper lobe using a Diop needle and sent for routine cytology. Two samples were obtained. Guided brushings were obtained in the left upper lobe with a cytology brush and sent for routine cytology. One sample was obtained. The scope was withdrawn and replaced with the EBUS bronchoscope to accomplish the ultrasound examination. Lymph Nodes: An endobronchial ultrasound endoscope was utilized to systematically examine the subcarinal mediastinum (level 7) and left hilar region (level 10L) in order to assist with guiding the biopsy needle. Lymph node sizing was performed via endobronchial ultrasound for suspected lung cancer. Sampling by transbronchial needle aspiration was also performed using an Olympus EBUS-TBNA 19 gauge needle in the subcarinal mediastinum (level 7) and left hilar region (level 10L) and sent for routine cytology. - The 7 (subcarinal) node was evaluated. Three samples with the needle were obtained. - The 10L (hilar) node was evaluated. Two samples with the needle were obtained. Impression: - Mediastinal adenopathy - Lung mass suspicious for cancer - The airway examination of the right lung was normal. - An endobronchial mass was found in the left upper lobe. This lesion is likely malignant. - An endobronchial biopsy was performed. - Endobronchial needle aspiration was performed. - Brushings were obtained. - Endobronchial ultrasound was performed. - Lymph node sizing and sampling was performed. Recommendation: - Await biopsy results. Procedure Code(s): --- Professional --- 58380, Bronchoscopy, rigid or flexible, including fluoroscopic guidance, when performed; with endobronchial ultrasound (EBUS) guided transtracheal and/or transbronchial sampling (eg, aspiration[s]/biopsy[ies]), one or two mediastinal and/or hilar lymph node stations or structures 48108, Bronchoscopy, rigid or flexible, including fluoroscopic guidance, when performed; with bronchial or endobronchial biopsy(s), single or multiple sites 76256, Bronchoscopy, rigid or flexible, including fluoroscopic guidance, when performed; with brushing or protected brushings Diagnosis Code(s): --- Professional --- R59.0, Localized enlarged lymph nodes R91.8, Other nonspecific abnormal finding of lung field J98.9, Respiratory disorder, unspecified R09.89, Other specified symptoms and signs involving the circulatory and respiratory systems CPT copyright 2017 [employer]. All rights reserved. The codes documented in this report are preliminary and upon director of software engineering review may be revised to meet current compliance requirements. DO Chris Braun MD 07/28/2021 1:25:05 PM This report has been signed electronically. Number of Addenda: 0 Note Initiated On: 07/28/2021 11:05 AM
[2021-07-28] MEDS: Lidocaine 2% Jelly 1 APPLIC Tube (13:46)
--- NOTE | 2021-07-28 15:33 | SUR.PHASEI ---
SPOKE TO DR MACK ABOUT BIPAP AND PLAN WITH PT. WEAN BIPAP. TALK WITH DR MARTIN ABOUT VS AND PLAN FOR DISCHARGE.
--- NOTE | 2021-07-28 16:38 | HP.PCM.HOS_ITS ---
HPI - General General Date of Admission: 07/28/21 Date of Service: 07/28/21 Chief Complaint: Hypoxia HPI Narrative SHAAN WHITAKER, is a 55 M with past medical history signal for diabetes mellitus type 2, COPD tobacco dependence who underwent bronchoscopy by Dr Kingsley on 07/28/2021 on account of mediastinal adenopathy lung mass suspicious for malignancy. Patient uses home oxygen intermittently. Prior to his procedure his oxygen saturation was in the mid 90s. Was called by Dr. Garza with from anesthesia to admit patient for observation due to the fact that patient oxygen saturation was dipping to the mid 80s following the procedure and had to be placed on oxygen continuously. Patient apparently did not meet the criteria to be discharged home hence the decision to observe patient for a day. [facility] Medical History (Updated 07/28/21 @ 17:[address] Nilson Gottlieb MD) Abnormal EKG Arthralgia of hand Arthritis BMI 50.0-59.9, adult Cancer Chronic back pain greater than 3 months duration COPD (chronic obstructive pulmonary disease) Diabetes Diastolic congestive heart failure Fatigue Fatty liver GERD (gastroesophageal reflux disease) High cholesterol History of CHF (congestive heart failure) History of chronic respiratory failure History of edema History of fracture of left hip History of rectal bleeding History of stress test Hypertension Leg cramps Neck muscle spasm Non-insulin dependent type 2 diabetes mellitus On home oxygen therapy Osteoarthritis Polycythemia secondary to smoking Poor dentition Seasonal allergies Secondary restless legs syndrome Shortness of breath on exertion Sleep apnea, obstructive Smoker Thrombocytopenia Wears glasses Home Medications albuterol sulfate 1 mg INHALATION Q8H PRN PRN 07/06/21 [History Last Taken Unknown] ammonium lactate 1 applic TOPICAL TID 07/06/21 [History Last Taken Unknown] atorvastatin 80 mg PO QHS 07/06/21 [History Last Taken Unknown] fluticasone propion-salmeterol [Advair HFA] 1 puff INHALATION BID 07/06/21 [History Last Taken Unknown] fluticasone propionate 1 spray INTRANASAL DAILY 07/06/21 [History Last Taken Unknown] furosemide 20 mg PO DINNER 07/06/21 [History Last Taken Unknown] furosemide 40 mg PO BREAKFAST 07/06/21 [History Last Taken Unknown] hydrocodone-acetaminophen 1 - 2 tab PO Q6H PRN PRN 07/06/21 [History Last Taken Unknown] lisinopril 10 mg PO DAILY 07/06/21 [History Last Taken Unknown] metformin 750 mg PO DAILY 07/06/21 [History Last Taken Unknown] pantoprazole 20 mg PO DAILY 07/06/21 [History Last Taken Unknown] potassium chloride 20 meq PO DAILY 07/06/21 [History Last Taken Unknown] aspirin 325 mg tablet 325 mg PO DAILY 07/12/21 [History Last Taken 07/20/21] magnesium oxide 420 mg tablet 420 mg PO DAILY 07/12/21 [History Last Taken Unknown] semaglutide 1 mg/dose (2 mg/1.5 mL) subcutaneous pen injector 1 mg SUBCUT QWEEK 07/12/21 [History Last Taken Unknown] zinc 50 mg PO DAILY 07/27/21 [History Last Taken Unknown] Allergy/AdvReac Type Severity Reaction Status Date / Time No Known Allergies Allergy Verified 07/28/21 11:17 Family History Mother Heart disease Father Diabetes Brother Heart disease Surgical History History of back surgery History of cardiac catheterization History of surgery on lower extremity Hx laparoscopic cholecystectomy Social History Smoking Status: Current some day smoker tobacco type: cigarettes Tobacco: How many years used: 40 ROS ROS Narrative GENERAL: denies fever, chills, night sweats, HEENT: denies headache, sinus congestion, RESPIRATORY: denies cough, sputum production, CARDIAC: denies chest pain, palpitations, orthopnea, GASTROINTESTINAL: denies abdominal pain, nausea, GENITOURINARY: denies dysuria, urgency, frequency, EXTREMITY: denies swelling MUSCULOSKELETAL: denies current joint pain or tenderness NEUROLOGIC: denies focal numbness, weakness, tingling HEMATOLOGIC: denies easy bruising and/or hemorrhage INTEGUMENT: denies rashes PSYCHIATRIC: denies suicidal or homicidal ideation Vital Signs Vital Signs Vital Signs: 07/28/21 11:18 07/28/21 14:15 07/28/21 14:30 Temperature 98.1 F 97.3 F L Temperature Source Temporal Temporal Pulse Rate 78 87 80 Respiratory Rate 16 28 H 26 H Respiratory Pattern Normal Tachypnea Blood Pressure 122/68 H 147/75 H 110/51 L Blood Pressure Mean 86 99 70 Blood Pressure Source Monitor Monitor Monitor Blood Pressure Position Sitting Semi-Fowlers Semi-Fowlers Blood Pressure Location Left Arm Left Forearm Left Forearm Baseline BP 122/68 122/68 Pulse Ox 92 97 95 Oxygen Delivery Method Room Air Bi-pap Bi-pap Oxygen Flow Rate (L/min) Fraction of Inspired Oxygen (FIO2) 60 60 07/28/21 14:45 07/28/21 14:50 07/28/21 14:55 Temperature Temperature Source Pulse Rate 78 76 73 Respiratory Rate 24 H 33 H 14 Respiratory Pattern Blood Pressure 110/73 110/73 125/73 H Blood Pressure Mean 85 85 90 Blood Pressure Source Monitor Monitor Monitor Blood Pressure Position Semi-Fowlers Semi-Fowlers Semi-Fowlers Blood Pressure Location Left Forearm Left Forearm Left Forearm Baseline BP 122/68 122/68 122/68 Pulse Ox 97 78 100 Oxygen Delivery Method Room Air Room Air Bi-pap Oxygen Flow Rate (L/min) 60 Fraction of Inspired Oxygen (FIO2) 07/28/21 15:00 07/28/21 15:10 07/28/21 15:20 Temperature Temperature Source Pulse Rate 73 74 75 Respiratory Rate 24 H 23 H 14 Respiratory Pattern Blood Pressure 124/73 H 118/64 119/63 Blood Pressure Mean 90 82 81 Blood Pressure Source Monitor Monitor Monitor Blood Pressure Position Semi-Fowlers Semi-Fowlers Semi-Fowlers Blood Pressure Location Left Forearm Left Forearm Left Forearm Baseline BP 122/68 122/68 122/68 Pulse Ox 100 98 97 Oxygen Delivery Method Bi-pap Bi-pap Bi-pap Oxygen Flow Rate (L/min) 60 40 30 Fraction of Inspired Oxygen (FIO2) 40 07/28/21 15:30 07/28/21 15:40 07/28/21 15:45 Temperature Temperature Source Pulse Rate 79 78 80 Respiratory Rate 18 16 16 Respiratory Pattern Blood Pressure 123/68 H 110/82 H 101/66 Blood Pressure Mean 86 91 77 Blood Pressure Source Monitor Monitor Monitor Blood Pressure Position Semi-Fowlers Semi-Fowlers Semi-Fowlers Blood Pressure Location Left Forearm Left Forearm Left Forearm Baseline BP 122/68 122/68 122/68 Pulse Ox 92 95 91 Oxygen Delivery Method Nasal Cannula Nasal Cannula Nasal Cannula Oxygen Flow Rate (L/min) 4 2 2 Fraction of Inspired Oxygen (FIO2) 07/28/21 15:50 07/28/21 15:55 07/28/21 16:00 Temperature Temperature Source Pulse Rate 88 78 77 Respiratory Rate 24 H 12 14 Respiratory Pattern Blood Pressure 124/69 H 133/77 H 115/72 Blood Pressure Mean 87 95 86 Blood Pressure Source Monitor Monitor Monitor Blood Pressure Position Semi-Fowlers Sitting Sitting Blood Pressure Location Left Forearm Left Forearm Left Forearm Baseline BP 122/68 122/68 122/68 Pulse Ox 85 95 93 Oxygen Delivery Method Nasal Cannula Nasal Cannula Nasal Cannula Oxygen Flow Rate (L/min) 2 3 1 Fraction of Inspired Oxygen (FIO2) 07/28/21 16:15 07/28/21 16:20 07/28/21 16:29 Temperature Temperature Source Pulse Rate 77 79 78 Respiratory Rate 17 14 12 Respiratory Pattern Blood Pressure 98/69 130/76 H Blood Pressure Mean 78 94 Blood Pressure Source Monitor Monitor Blood Pressure Position Sitting Sitting Blood Pressure Location Left Forearm Left Forearm Baseline BP 122/68 122/68 122/68 Pulse Ox 85 81 79 Oxygen Delivery Method Room Air Room Air Room Air Oxygen Flow Rate (L/min) Fraction of Inspired Oxygen (FIO2) 07/28/21 16:35 Temperature Temperature Source Pulse Rate 77 Respiratory Rate 12 Respiratory Pattern Blood Pressure 124/79 H Blood Pressure Mean 94 Blood Pressure Source Monitor Blood Pressure Position Sitting Blood Pressure Location Left Forearm Baseline BP 122/68 Pulse Ox 95 Oxygen Delivery Method Nasal Cannula Oxygen Flow Rate (L/min) 4 Fraction of Inspired Oxygen (FIO2) Weight Weight: 156 kg Body Mass Index (BMI) 50.8 Physical Exam Narrative GENERAL: cooperative HEENT: Atraumatic; EYES; Anicteric, Normal Conjunctiva NECK; supple, normal thyroid, RESPIRATORY: Diminished to auscultation CARDIOVASCULAR: Regular S1 S2, GI: soft, normoactive bowel sounds, : No Renal angle tenderness; EXTREMITIES: No edema, no clubbing, MUSCULOSKELETAL: no muscle wasting NEURO: Awake; no lateralizing signs. SKIN: No Rash PSYCH; Flat affect Assessment & Plan Assessment/Plan (1) Lung mass: (2) Nicotine dependence, cigarettes, uncomplicated: (3) Hypoxia: PLAN: Patient is a 55-year-old admitted for post bronchoscopy hypoxia 1. Hypoxia ? Suspect a combination of factors including COPD, possible CHF as well as obesity hypoventilation syndrome. Patient has been admitted to a monitored bed for subsequent evaluation. As part of his management patient was placed on oxygen. Also did order chest x-ray CBC BMP, BNP and D-dimer. Subsequent diagnostic work-up to follow once results of above initial investigations obtained 2. Lung mass ? Patient underwent bronchoscopy with endobronchial ultrasound guided transtracheal and transbronchial sampling by Dr. Kingsley on 07/28/2021 3. COPD ? Did continue patient inhaled corticosteroid as well as his bronchodilator therapy treatment 4. Class III obesity with BMI of 50.8 ? Weight loss advised 5. Congestive heart failure with preserved ejection fraction ? Patient on diuretics did continue 6. Diabetes mellitus type II -patient's oral hypoglycemics held. Placed on long acting insulin, Accu-Cheks a.c. and at bedtime and covered with sliding scale insulin 7. Dyslipidemia -Patient is on statin therapy, continued at home dose 8. Hypertension - Blood pressure controlled, home medications continued with dose adjustment as needed 9. Tobacco dependence - Counseled on cessation, offered nicotine patch for tobacco cravings 10. Obstructive sleep apnea ? PAP therapy at night 11. GERD ? On PPI 12. DVT prophylaxis ? Lovenox dose adjusted for weight Charges/Coding Visit Charges OBSV E&M: 76977 Initial observation care L3
[2021-07-28 17:30] LABS: Hematocrit 46.4 % (40-54); Mean Corpuscular Hgb 24.6 pg (27.0-32.0); Mean Corpuscular Volume 87.9 fL (80-94); Mean Platelet Vol. 9.6 fl (6.2-12.0); Platelet Count 122 K/mm3 (150-450); RBC Distribution Width CV 17.6 % (11.6-14.6); RBC Distribution Width SD 57.3 fl (35.1-43.9); Red Blood Count 5.28 M/mm3 (4.6-6.2); White Blood Count 9.9 K/mm3 (4.4-11.0)
--- NOTE | 2021-07-28 18:07 | RAD_ITS ---
INDICATION: COPD-496 EXAMINATION/TECHNIQUE: X-RAY - XR Chest 2 Views COMPARISON: None. FINDINGS: Left upper lobe lung collapse. The cardiomediastinal silhouette is obscured. Large left partially loculated pleural effusion. Degenerative changes of the thoracic spine. RAD/Chest PA and Lateral IMPRESSION: Large left partially loculated pleural effusion with left upper lobe lung collapse. Refer to chest CTA report same date for better characterization. Electronically Signed: Adam Hargrove MD at 23:36 EDT ,
[2021-07-28 18:23] LABS: ALB/GLOB Ratio 0.6 RATIO (0.9-2.4); AST(SGOT) 21 U/L (15-37); Alanine Aminotransfer ALT/SGPT 14 U/L (16-61); Albumin, Serum 2.9 g/dL (3.2-5.0); Alkaline Phosphatase 119 U/L (45-117); Anion Gap 1 (5-15); BUN 7 mg/dL (7-18); BUN/Creat Ratio 9.9 RATIO (10-20); Calcium,Total 8.8 mg/dL (8.5-10.1); Chloride 95 mmol/L (98-107); EST Glomerular Filtration Rate 122 mL/min (>60); Est Glom Filt Rate - Afr Amer 148 mL/min (>60); Estimated Creatinine Clearance 116.43 ml/min; Glucose 114 mg/dL (74-106); Magnesium 2.3 mg/dL (1.6-2.6); Potassium 4.8 mmol/L (3.5-5.1); Protein, Total 7.9 g/dL (6.4-8.2); Sodium Level 133 mmol/L (136-145)
[2021-07-28 18:27] LABS: BNP,B-Type NATRIURETIC PEPTIDE 19.6 pg/mL (0-100)
[2021-07-28 18:28] LABS: Troponin-I HS 13 pg/mL (3.0-78.0)
[2021-07-28] MEDS: Azithromycin 250 MG Tablet 500 MG PO (18:44)
[2021-07-28] MEDS: Furosemide 20 MG Tablet PO (18:44)
[2021-07-28 20:48] LABS: Troponin-I HS 9 pg/mL (3.0-78.0)
[2021-07-28 20:54] LABS: D-Dimer Quantitative (DVT/PE) 1.65 FEU/ug/m (0.27-0.49)
--- NOTE | 2021-07-28 20:56 | NURSING ---
primary RN notified of critical DDimer 1.65
[2021-07-28] MEDS: 0.9% Saline Lock 10 ML Syringe IV (21:24)
[2021-07-28] MEDS: Enoxaparin 40 MG/0.4 ML Syringe SC (21:28)
[2021-07-28] MEDS: Atorvastatin Calcium 80 MG Tablet PO (21:28)
[2021-07-28 21:31] LABS: Bedside Glucose 140 mg/dL (74-106)
--- NOTE | 2021-07-28 22:17 | CT_ITS ---
INDICATION: suspect pe EXAMINATION: CTA Chest WO/W Contrast Injection TECHNIQUE: Helically acquired images were obtained of the chest following administration of IV contrast. A radiation dose optimization technique was used for this scan. 3D postprocessing images including MIPS were reviewed. IV Contrast dosage and agent: IV 100mL [id number] COMPARISON: 07/06/2021. FINDINGS: Lungs: Left upper lobe lung collapse. Mediastinum: The heart is borderline enlarged. No mediastinal, hilar or axillary adenopathy. Mild aortic arch and coronary artery calcifications. No obvious filling defect seen within the visualized pulmonary arteries. Pleura: Large left partially loculated pleural effusion. Bones/Soft tissues: Mild scattered degenerative changes of the visualized spine. Upper abdomen: Cirrhotic liver. There is mild splenomegaly. CT/CTA Chest W/WO Contrast IMPRESSION: Limited examination for the evaluation of acute pulmonary emboli due to inadequate opacification of the pulmonary arteries. Despite limitations: No evidence of acute pulmonary emboli to the segmental level. Large left partially loculated pleural effusion with left upper lobe lung collapse, worse when compared to prior on 07/06/2021. Cirrhotic liver with evidence of portal hypertension including mild splenomegaly Electronically Signed: Adam Hargrove MD at 23:33 EDT ,
--- NOTE | 2021-07-28 22:19 | PCM.HOSP.N ---
Hospitalist Note Dimer elevated, will obtain CTPA to be cautious.
[2021-07-28 23:46] LABS: Troponin-I HS 13 pg/mL (3.0-78.0)
[2021-07-29 03:22] VITALS: BP 129/68; PULSE 72; RESP 18; TEMP 36.3; O2SAT 94
[2021-07-29 04:14] VITALS: PULSE 90
[2021-07-29 06:30] LABS: Absolute Lymphocyte Count 0.31 X10^3/uL (0.83-4.51); Absolute Neutrophil Count 7.1 X10^3/uL (2.0-7.7); Basophil# 0.01 X10^3/uL; Basophil% 0.1 % (0-1); Hematocrit 45.2 % (40-54); Hemoglobin 12.5 g/dL (13.0-16.5); Lymphocyte # 0.31 X10^3/ul (0.83-4.51); Lymphocyte % 4.1 % (19-41); Mean Corp Hgb Conc 27.7 g/dL (32-36); Mean Corpuscular Hgb 24.7 pg (27.0-32.0); Mean Corpuscular Volume 89.3 fL (80-94); Mean Platelet Vol. 9.8 fl (6.2-12.0); Monocyte# 0.09 X10^3/uL; Monocyte% 1.2 % (0-10); NRBC Flagged by Analyzer 0 % (0-5); Neutrophil # 7.07 X10^3/uL (2.7-7.7); Neutrophil % 94.1 % (47-70); POSITIVE DIFFERENTIAL YES; Platelet Count 102 K/mm3 (150-450); RBC Distribution Width CV 17.2 % (11.6-14.6); RBC Distribution Width SD 55.8 fl (35.1-43.9); Red Blood Count 5.06 M/mm3 (4.6-6.2); White Blood Count 7.5 K/mm3 (4.4-11.0)
[2021-07-29 06:33] LABS: Differential Indicated SCAN CRITERIA MET
[2021-07-29] MEDS: Insulin Lispro 100 UNIT/ML INSULN.PEN SC (06:40)
[2021-07-29 06:45] LABS: Bedside Glucose 171 mg/dL (74-106)
[2021-07-29 06:59] LABS: Anion Gap 1 (5-15); BUN 8 mg/dL (7-18); BUN/Creat Ratio 13.1 RATIO (10-20); Calcium,Total 8.7 mg/dL (8.5-10.1); Chloride 94 mmol/L (98-107); Creatinine, Serum 0.61 mg/dL (0.70-1.30); Differential Comment SCANNED; EST Glomerular Filtration Rate 144 mL/min (>60); Est Glom Filt Rate - Afr Amer 174 mL/min (>60); Estimated Creatinine Clearance 133.61 ml/min; Glucose 160 mg/dL (74-106); Sodium Level 132 mmol/L (136-145)
[2021-07-29 07:00] VITALS: PULSE 87
--- NOTE | 2021-07-29 07:05 | PN.CC_ITS ---
Assessment & Plan Assessment/Plan (1) Hypoxia: PLAN: RECOMMENDATIONS: 1. Perform walking oximetry with plans to discharge home with supplemental oxygen. 2. I will contact the patient next week when his final pathology report is available to review. 3. Tobacco cessation is advisable. IMPRESSIONS: 1. Post procedure hypoxia The patient was monitored overnight after he developed a supplemental oxygen requirement following his EBUS procedure yesterday. The bronchoscopy revealed complete obstruction of his left upper lobe takeoff due to the presence of an endobronchial mass. Extensive biopsies were performed. The patient does report having had supplemental oxygen at home for quite some time, but has only been intermittently compliant with its use. I do suspect that the patient will require supplemental oxygen on a home-going basis. I will contact the patient next week to discuss the results of his pathology report. Nevertheless, malignant cells were identified on preliminary biopsies. The patient will require further work-up on an outpatient basis including PET scan and MRI brain. I would plan to perform a walking oximetry study this morning and discharge him on supplemental oxygen as required. 2. Newly diagnosed lung cancer Biopsies performed yesterday were positive for malignancy. However, the exact subtype of cancer is not clear yet. We will need to await final pathology reports next week. 3. Chronic tobacco dependency/suspected sleep apnea and alveolar hypove ntilation secondary to obesity Complicates care, management, recovery and prognosis. The patient has never completed a sleep study, nor is he interested in utilizing any form of nocturnal Pap therapy. This note was generated with [employer] dictation software. It may contain incorrect words, spelling, and punctuation that were not noted in checking the note before signing. Subjective Subjective The patient was seen and examined at the bedside this morning. Events from the last 24 hours have been reviewed. The patient is currently afebrile, hemodynamically stable and maintaining appropriate oxygen saturations on 4 L/min via nasal cannula. The patient was admitted to the hospital for overnight observation yesterday after he was unable to be weaned from supplemental oxygen following his EBUS procedure. While the patient has had supplemental oxygen at home for over 3 years, he only utilizes it intermittently. The patient denies any shortness of breath. He does report having coughed up a blood clot this morning. Objective Data Objective Data The patient's most recent lab work, culture data and imaging studies have all b een personally reviewed. Vital Signs: Vital Signs Temp Pulse Resp BP Pulse Ox 97.4 F L 90 18 129/68 H 94 07/29/21 03:22 07/29/21 04:14 07/29/21 03:22 07/29/21 03:22 07/29/21 03:22 Oxygen Flow Rate (L/min) 4 Oxygen Delivery Method Room Air Weight: 156.3 kg Body Mass Index (BMI) 50.8 Intake & Output: Intake and Output for Last 24 Hours 07/27/21 07/28/21 07/29/21 23:59 23:59 23:59 Intake Total 274.5 / 274.5 Balance 274.5 / 274.5 Lab / Micro Data Attestation: I reviewed the patient's lab results. Result Diagrams: 07/29/21 05:57 07/29/21 05:57 Labs: Laboratory Results - last 24 hr 07/28/21 17:17: WBC 9.9, RBC 5.28, Hgb 13.0, Hct 46.4, MCV 87.9, MCH 24.6 L, M CHC 28.0 L, RDW Std Deviation 57.3 H, RDW Coeff of Jean-Paul 17.6 H, Plt Count 122 L, MPV 9.6 07/28/21 17:17: Sodium 133 L, Potassium 4.8, Chloride 95 L, Carbon Dioxide 37.0 H, Anion Gap 1 L, BUN 7, Creatinine 0.70, Estim Creat Clear Calc 116.43, Est GFR (MDRD) Af Amer 148, Est GFR (MDRD) Non-Af 122, BUN/Creatinine Ratio 9.9 L, Glucose 114 H, Calcium 8.8, Magnesium 2.3, Total Bilirubin 0.60, AST 21, ALT 14 L, Alkaline Phosphatase 119 H, Total Protein 7.9, Albumin 2.9 L, Globulin 5.0 H, Albumin/Globulin Ratio 0.6 L 07/28/21 17:17: B-Natriuretic Peptide 19.6 07/28/21 17:17: Troponin I High Sens 13 07/28/21 19:45: D-Dimer Quant (PE/DVT) 1.65 H* 07/28/21 19:45: Troponin I High Sens 9 07/28/21 21:22: POC Glucose 140 H 07/28/21 23:16: Troponin I High Sens 13 07/29/21 05:57: WBC 7.5, RBC 5.06, Hgb 12.5 L, Hct 45.2, MCV 89.3, MCH 24.7 L, MCHC 27.7 L, RDW Std Deviation 55.8 H, RDW Coeff of Jean-Paul 17.2 H, Plt Count 102 L, MPV 9.8, Immature Gran % (Auto) 0.500, Neut % (Auto) 94.1 H, Lymph % (Auto) 4.1 L, [place] % (Auto) 1.2, Eos % (Auto) 0.0, Baso % (Auto) 0.1, Absolute Neuts (auto) 7.1, Absolute Lymphs (auto) 0.31 L, Nucleated RBC % 0, Differential Comment SCANNED 07/29/21 05:57: Sodium 132 L, Potassium 5.0, Chloride 94 L, Carbon Dioxide 37.0 H, Anion Gap 1 L, BUN 8, Creatinine 0.61 L, Estim Creat Clear Calc 133.61, Est GFR (MDRD) Af Amer 174, Est GFR (MDRD) Non-Af 144, BUN/Creatinine Ratio 13.1, Glucose 160 H, Calcium 8.7 07/29/21 06:34: POC Glucose 171 H Micro: Microbiology 07/28/21 18:30 Nasal Secretion SARS-CoV-2 & FLU Antigen (Rapid) - Final Radiography Diagnostic Testing: Radiology Impression Chest X-Ray 07/28/21 18:07 IMPRESSION: Large left partially loculated pleural effusion with left upper lobe lung collapse. Refer to chest CTA report same date for better characterization. Electronically Signed: Adam Hargrove MD at 23:36 EDT , Chest CTA 07/28/21 22:17 IMPRESSION: Limited examination for the evaluation of acute pulmonary emboli due to inadequate opacification of the pulmonary arteries. Despite limitations: No evidence of acute pulmonary emboli to the segmental level. Large left partially loculated pleural effusion with left upper lobe lung collapse, worse when compared to prior on 07/06/2021. Cirrhotic liver with evidence of portal hypertension including mild splenomegaly Electronically Signed: Adam Hargrove MD at 23:33 EDT , Physical Exam Const alert, oriented x3 and no apparent distress General Appearance: cooperative Nutritional Appearance: morbidly obese HEENT normocephalic, head/scalp atraumatic and moist oral mucous membranes Eyes PERRL, EOMs intact bilaterally and conjunctivae normal Neck supple General: trachea midline Chest inspection of chest normal Resp normal respiratory effort Effort and Inspection: able to speak in complete sentences Auscultation: diminished lung sounds Cardio regular rate and regular rhythm GI normal to inspection, nondistended, normoactive bowel sounds Extremity no clubbing, cyanosis or edema Skin no rashes or lesions noted Neuro oriented x3, CN's II-XII intact bilaterally and moves all extremities Psych cooperative and affect normal Charges/Coding Visit Charges Inpatient E&M: 15629 Subs Hosp L2
--- NOTE | 2021-07-29 07:21 | DS.PCM_ITS ---
Providers Date of Admission: 07/28/21 Primary Care Physician: Dr. Milena Guevara, Consultations 07/28/21 17:14 Consult: Coal Feeder Operator / Pulmonary Medicine Routine Consulting Provider: Pulmonary Medicine raimundo [place] Reason for Consult: Postprocedure hypoxia EMERGENT Consult: No MD Notified: Yes Date Notified: 07/28/21 Time Notified: 17:14 Method of Notification: Verbal Diagnosis Discharge Diagnosis (1) Lung mass: Status: Acute Code(s): R91.8 - Other nonspecific abnormal finding of lung field (2) Nicotine dependence, cigarettes, uncomplicated: Status: Acute Code(s): F17.210 - Nicotine dependence, cigarettes, uncomplicated (3) Hypoxia: Status: Acute Code(s): R09.02 - Hypoxemia Medications at Discharge Home Medications Advair HFA 1 puff INHALATION BID 07/06/21 albuterol sulfate 1 mg INHALATION Q8H PRN PRN 07/06/21 ammonium lactate 1 applic TOPICAL TID 07/06/21 atorvastatin 80 mg PO QHS 07/06/21 fluticasone propionate 1 spray INTRANASAL DAILY 07/06/21 furosemide 20 mg PO DINNER 07/06/21 furosemide 40 mg PO BREAKFAST 07/06/21 hydrocodone-acetaminophen 1 - 2 tab PO Q6H PRN PRN 07/06/21 lisinopril 10 mg PO DAILY 07/06/21 metformin 750 mg PO DAILY 07/06/21 pantoprazole 20 mg PO DAILY 07/06/21 potassium chloride 20 meq PO DAILY 07/06/21 aspirin 325 mg tablet 325 mg PO DAILY 07/12/21 magnesium oxide 420 mg tablet 420 mg PO DAILY 07/12/21 semaglutide 1 mg/dose (2 mg/1.5 mL) subcutaneous pen injector 1 mg SUBCUT QWEEK 07/12/21 zinc 50 mg PO DAILY 07/27/21 Hospital Course Summary of Care Provided Minutes Spent on Discharge: 35 Hospital Course: 1. Hypoxia ? Suspect a combination of factors including COPD, possible CHF as well as obesity hypoventilation syndrome. Patient has been admitted to a monitored bed for subsequent evaluation. As part of his management patient was placed on oxygen. Also did order chest x-ray CBC BMP, BNP and D-dimer. Subsequent diagnostic work-up to follow once results of above initial investigations obtained -07/29/2021 patient elevated D-dimer came back elevated CTA of the chest obtained was negative for PE however did show Large left partially loculated pleural effusion with left upper lobe lung collapse, worse when compared to prior on 07/06/2021. Case discussed with Dr Kingsley with pulmonary medicine conservative management for now. Patient to follow-up with our office once results of his biopsy is back 2. Lung mass ? Patient underwent bronchoscopy with endobronchial ultrasound guided transtracheal and transbronchial sampling by Dr. Kingsley on 07/28/2021 3. COPD ? Did continue patient inhaled corticosteroid as well as his bronchodilator therapy treatment 4. Class III obesity with BMI of 50.8 ? Weight loss advised 5. Congestive heart failure with preserved ejection fraction ? Patient on diuretics did continue 6. Diabetes mellitus type II -patient's oral hypoglycemics held. Placed on long acting insulin, Accu-Cheks a.c. and at bedtime and covered with sliding scale insulin 7. Dyslipidemia -Patient is on statin therapy, continued at home dose 8. Hypertension - Blood pressure controlled, home medications continued with dose adjustment as needed 9. Tobacco dependence - Counseled on cessation, offered nicotine patch for tobacco cravings 10. Obstructive sleep apnea ? PAP therapy at night 11. GERD ? On PPI 12. DVT prophylaxis ? Lovenox dose adjusted for weight Physical Exam Narrative GENERAL: cooperative HEENT: Atraumatic; EYES; Anicteric, Normal Conjunctiva NECK; supple, normal thyroid, RESPIRATORY: Diminished to auscultation CARDIOVASCULAR: Regular S1 S2, GI: soft, normoactive bowel sounds, : No Renal angle tenderness; EXTREMITIES: No edema, no clubbing, MUSCULOSKELETAL: no muscle wasting NEURO: Awake; no lateralizing signs. SKIN: No Rash PSYCH; Flat affect Weight / BMI Weight Weight: 156.3 kg Body Mass Index (BMI) 50.8 ABG / Lab / Microbiology Data Result Diagrams: 07/29/21 05:57 07/29/21 05:57 Laboratory: Laboratory Results - last 24 hr 07/28/21 17:17: WBC 9.9, RBC 5.28, Hgb 13.0, Hct 46.4, MCV 87.9, MCH 24.6 L, MCHC 28.0 L, RDW Std Deviation 57.3 H, RDW Coeff of Jean-Paul 17.6 H, Plt Count 122 L, MPV 9.6 07/28/21 17:17: Sodium 133 L, Potassium 4.8, Chloride 95 L, Carbon Dioxide 37.0 H, Anion Gap 1 L, BUN 7, Creatinine 0.70, Estim Creat Clear Calc 116.43, Est GFR (MDRD) Af Amer 148, Est GFR (MDRD) Non-Af 122, BUN/Creatinine Ratio 9.9 L, Glucose 114 H, Calcium 8.8, Magnesium 2.3, Total Bilirubin 0.60, AST 21, ALT 14 L, Alkaline Phosphatase 119 H, Total Protein 7.9, Albumin 2.9 L, Globulin 5.0 H, Albumin/Globulin Ratio 0.6 L 07/28/21 17:17: B-Natriuretic Peptide 19.6 07/28/21 17:17: Troponin I High Sens 13 07/28/21 19:45: D-Dimer Quant (PE/DVT) 1.65 H* 07/28/21 19:45: Troponin I High Sens 9 07/28/21 21:22: POC Glucose 140 H 07/28/21 23:16: Troponin I High Sens 13 07/29/21 05:57: WBC 7.5, RBC 5.06, Hgb 12.5 L, Hct 45.2, MCV 89.3, MCH 24.7 L, MCHC 27.7 L, RDW Std Deviation 55.8 H, RDW Coeff of Jean-Paul 17.2 H, Plt Count 102 L, MPV 9.8, Immature Gran % (Auto) 0.500, Neut % (Auto) 94.1 H, Lymph % (Auto) 4.1 L, [place] % (Auto) 1.2, Eos % (Auto) 0.0, Baso % (Auto) 0.1, Absolute Neuts (auto) 7.1, Absolute Lymphs (auto) 0.31 L, Nucleated RBC % 0, Differential Comment SCANNED 07/29/21 05:57: Sodium 132 L, Potassium 5.0, Chloride 94 L, Carbon Dioxide 37.0 H, Anion Gap 1 L, BUN 8, Creatinine 0.61 L, Estim Creat Clear Calc 133.61, Est GFR (MDRD) Af Amer 174, Est GFR (MDRD) Non-Af 144, BUN/Creatinine Ratio 13.1, Glucose 160 H, Calcium 8.7 07/29/21 06:34: POC Glucose 171 H Microbiology: Microbiology 07/28/21 18:30 Nasal Secretion SARS-CoV-2 & FLU Antigen (Rapid) - Final Radiography Diagnostic Testing: Radiology Impression Chest X-Ray 07/28/21 18:07 IMPRESSION: Large left partially loculated pleural effusion with left upper lobe lung collapse. Refer to chest CTA report same date for better characterization. Electronically Signed: Adam Hargrove MD at 23:36 EDT , Chest CTA 07/28/21 22:17 IMPRESSION: Limited examination for the evaluation of acute pulmonary emboli due to inadequate opacification of the pulmonary arteries. Despite limitations: No evidence of acute pulmonary emboli to the segmental level. Large left partially loculated pleural effusion with left upper lobe lung collapse, worse when compared to prior on 07/06/2021. Cirrhotic liver with evidence of portal hypertension including mild splenomegaly Electronically Signed: Adam Hargrove MD at 23:33 EDT , D/C Instructions Discharge Diet: No restrictions Discharge Activity: Return to Normal Activity Call your doctor if you observe: Fever of 101 or Higher, Shortness of breath, Fainting spells and Chest pain Meaningful Use Info Meaningful Use Diagnoses (Choose all that apply): None applicable Discharge Plan Admission Admit Date/Time: 07/28/21 16:47 Attending Provider: Chris Kingsley Primary Care Provider: Milena Guevara Consulting Providers: Ag Correa ; Chris Kingsley ; Jamila Moreno REHAB DIRECTOR Discharge Orders/Prescriptions Prescriptions: Continued aspirin 325 mg tablet 325 mg PO DAILY RF: 0 magnesium oxide 420 mg tablet 420 mg PO DAILY RF: 0 semaglutide 1 mg/dose (2 mg/1.5 mL) pen injector 1 mg subcut QWEEK RF: 0 furosemide 40 mg tablet 40 mg PO BREAKFAST RF: 0 atorvastatin 80 mg tablet 80 mg PO QHS RF: 0 hydrocodone-acetaminophen 5-325 mg tablet 1 - 2 tab PO Q6H PRN PRN (Reason: Pain) RF: 0 pantoprazole 20 mg tablet,delayed release (DR/EC) 20 mg PO DAILY RF: 0 lisinopril 10 mg tablet 10 mg PO DAILY RF: 0 ammonium lactate 12 % cream 1 applic TOPICAL TID RF: 0 fluticasone propionate 50 mcg/actuation spray,suspension 1 spray INTRANASAL DAILY RF: 0 metformin 750 mg tablet extended release 24 hr 750 mg PO DAILY RF: 0 Advair HFA 115-21 mcg/actuation HFA aerosol inhaler 1 puff INHALATION BID RF: 0 potassium chloride 20 mEq tablet extended release 20 meq PO DAILY RF: 0 furosemide 40 mg tablet 20 mg PO DINNER RF: 0 albuterol sulfate 2.5 mg /3 mL (0.083 %) solution for nebulization 1 mg inhalation Q8H PRN PRN (Reason: Shortness Of Breath) RF: 0 zinc 50 mg Capsule 50 mg PO DAILY RF: 0 Referrals / Follow Up: Milena Guevara DO [Primary Care Provider] - Charges/Coding Visit Charges OBSV E&M: 16378 Observation care discharge
[2021-07-29 08:17] VITALS: O2SAT 79
[2021-07-29 08:20] VITALS: O2SAT 79; O2SAT 90; O2SAT 93
[2021-07-29 09:20] VITALS: BP 101/45; PULSE 87; RESP 18; TEMP 36.8; O2SAT 94
[2021-07-29] MEDS: Azithromycin 250 MG Tablet 500 MG PO (09:28)
[2021-07-29] MEDS: Aspirin 325 MG Tablet PO (09:28)
[2021-07-29] MEDS: Pantoprazole Sodium 20 MG Tablet PO (09:28)
[2021-07-29] MEDS: Furosemide 40 MG Tablet PO (09:28)
--- NOTE | 2021-07-29 09:56 | CASEMGMT ---
Pt qualifies for 2L continuous home oxygen and this HAIM CM to room to discuss with pt. Pt states has home oxygen concentrator, portable concentrator and e-tanks thru [employer] but states has been paying out of pocket. Pt states is supposed to wear 2-3L but has not been wearing consistently for awhile. Pt is aware that he needs to wear 2L nc continuous. New order to be faxed to [facility] per pt request to see if his insurance will cover cost. Pt states family is bringing portable tank for d/c and pt voices no further questions/concerns/needs. [place] [facility] CM
== END 2021-07-29 12:22 | disposition home or self-care (01) ==
LOC: EN 17:42 → PCU 07-29 09:59
PROVIDERS: Admitting Provider Internal Medicine; PCP Family Medicine; Referring Provider Internal Medicine Critical Care Medicine; Visit Provider Internal Medicine Critical Care Medicine
PROC: BB4BZZZ Ultrasonography of Pleura (ICD-10-PCS; CPT 31623; principal; 2021-07-28 11:30)
DX: R91.8 Other nonspecific abnormal finding of lung field (principal); J44.9 Chronic obstructive pulmonary disease, unspecified; I11.0 Hypertensive heart disease with heart failure; I50.32 Chronic diastolic (congestive) heart failure; Z68.43 Body mass index [BMI] 50.0-59.9, adult; E11.9 Type 2 diabetes mellitus without complications; F17.210 Nicotine dependence, cigarettes, uncomplicated; E78.5 Hyperlipidemia, unspecified; M54.9 Dorsalgia, unspecified; K21.9 Gastro-esophageal reflux disease without esophagitis; G47.33 Obstructive sleep apnea (adult) (pediatric); R59.0 Localized enlarged lymph nodes; Z79.899 Other long term (current) drug therapy; M19.90 Unspecified osteoarthritis, unspecified site; Z79.82 Long term (current) use of aspirin; Z79.51 Long term (current) use of inhaled steroids; E66.9 Obesity, unspecified
CPT/HCPCS: 31623; 31625; 31652; 36415; 71046; 71275; 80048; 80053; 82962; 83735; 83880; 84484; 85025; 85027; 85379; 87070; 87077; 87205; 87428; 88161; 88172; 88305; 88313; 88341; 88342; 94002; 96372; 96374; 96376; 99218; 99251; 99406; J7120; Q9967; A4216; G0378; G0463; J2405

== ENCOUNTER 2021-08-06 15:25 | Inpatient (IN) | payer MEDICARE, MEDICAID, SELFPAY ==
[2021-08-06] VITALS (12 sets, daily range): BP systolic 100–127; BP diastolic 54–76; PULSE 89–100; RESP 17–22; TEMP 36.6–37; O2SAT 77–100; BMI 50.8; BMI 50.9
--- NOTE | 2021-08-06 15:27 | NURSING ---
NO OLD EKGS
--- NOTE | 2021-08-06 15:44 | ED.VIS.DYS ---
HPI History of Present Illness Chief Complaint: Shortness of Breath Informant: patient Onset/Context/Timing Onset: Yesterday Context: gradual Timing: Continuous Current Severity: Mild Maximum Severity: Mild Associated Symptoms cough; Negative for fever Chest Pain: Positive for None Narrative Narrative: 55-year-old male history of lung cancer currently going through a work-up for that. He sees both pulmonary critical care and Dr. Tuttle of oncology. Patient denies any chest pain. Says since yesterday's been more short of breath. He is on 2 L of home oxygen. States he has had hemoptysis for months. That is not new. He is never had a sleep PE or DVT. He had a CTA about 9 days ago that was negative. He denies any leg pain or swelling. He denies any fever. PE Risk Factors: Positive for Cancer; Negative for OCP + Smoking + > 35, Prior DVT or PE, Recent surgery and Recent travel Prior similar symptoms: Yes Recent Illness/Hospitalization: Yes [facility] Medical History Abnormal EKG Arthralgia of hand Arthritis BMI 50.0-59.9, adult Cancer Chronic back pain greater than 3 months duration COPD (chronic obstructive pulmonary disease) Diabetes Diastolic congestive heart failure Fatigue Fatty liver GERD (gastroesophageal reflux disease) High cholesterol History of CHF (congestive heart failure) History of chronic respiratory failure History of edema History of fracture of left hip History of rectal bleeding History of stress test Hypertension Leg cramps Neck muscle spasm Non-insulin dependent type 2 diabetes mellitus On home oxygen therapy Osteoarthritis Polycythemia secondary to smoking Poor dentition Seasonal allergies Secondary restless legs syndrome Shortness of breath on exertion Sleep apnea, obstructive Smoker Thrombocytopenia Wears glasses Home Medications Advair HFA 1 puff INHALATION BID 07/06/21 [History Last Taken Unknown] albuterol sulfate 1 mg INHALATION Q8H PRN PRN 07/06/21 [History Last Taken Unknown] ammonium lactate 1 applic TOPICAL TID 07/06/21 [History Last Taken Unknown] atorvastatin 80 mg PO QHS 07/06/21 [History Last Taken Unknown] fluticasone propionate 1 spray INTRANASAL DAILY 07/06/21 [History Last Taken Unknown] furosemide 20 mg PO DINNER 07/06/21 [History Last Taken Unknown] furosemide 40 mg PO BREAKFAST 07/06/21 [History Last Taken Unknown] hydrocodone-acetaminophen 1 - 2 tab PO Q6H PRN PRN 07/06/21 [History Last Taken Unknown] lisinopril 10 mg PO DAILY 07/06/21 [History Last Taken Unknown] metformin 750 mg PO DAILY 07/06/21 [History Last Taken Unknown] pantoprazole 20 mg PO DAILY 07/06/21 [History Last Taken Unknown] potassium chloride 20 meq PO DAILY 07/06/21 [History Last Taken Unknown] aspirin 325 mg tablet 325 mg PO DAILY 07/12/21 [History Last Taken 07/20/21] magnesium oxide 420 mg tablet 420 mg PO DAILY 07/12/21 [History Last Taken Unknown] semaglutide 1 mg/dose (2 mg/1.5 mL) subcutaneous pen injector 1 mg SUBCUT FR 07/12/21 [History Last Taken Unknown] zinc 50 mg PO DAILY 07/27/21 [History Last Taken Unknown] Allergy/AdvReac Type Severity Reaction Status Date / Time No Known Allergies Allergy Verified 08/02/21 14:09 Family History Mother Heart disease Father Diabetes Brother Heart disease Surgical History History of back surgery History of cardiac catheterization History of cholecystectomy History of surgery on lower extremity Hx laparoscopic cholecystectomy Social History Smoking Status: Current some day smoker tobacco type: cigarettes Tobacco: How many years used: 40 ROS ROS ED ROS Narrative Shortness of breath. Review of Systems ROS Unobtainable: Denies due to encephalopathy Constitutional Constitutional ED: Denies fever(s) Eyes Eyes: Denies change in vision ENT ENT ED: Denies ear pain Cardiovascular Cardiovascular: Denies chest pain Respiratory/Chest Respiratory/Chest: Reports cough and dyspnea; Denies sputum Gastrointestinal Gastrointestinal: Denies abdominal pain, diarrhea, nausea or vomiting Genitourinary Genitourinary ED: Denies dysuria or hematuria Musculoskeletal Musculoskeletal: Denies arthralgias or myalgias Integumentary Denies rash Neurologic Neurologic: Denies headache(s) Psychiatric Psychiatric: Denies depression Endocrine Endocrinology: Denies polyuria Hematologic/Lymphatic Hematologic/Lymphatic: Denies easy bruising Allergic/Immunologic Allergic/Immunologic ED: Denies urticaria EXAM Physical Exam Narrative Exam Narrative: 55-year-old male no acute distress vital signs stable afebrile. On 7 L is 94% on 4 L he is 77% hypoxic. H EENT exam unremarkable. Neck nontender. Lungs coarse breath sounds bilaterally. Few scattered wheezes. No rales or rhonchi. Equal symmetrical. Heart regular rhythm rate about 95 no murmur. Abdomen soft nontender. Obese. Moving all 4 extremities. Nontender no edema. Neurologically is awake and alert with no focal motor deficits. Const Vital Signs: 08/06/21 15:26 08/06/21 15:31 08/06/21 15:34 Temperature 98.6 F 98.6 F Temperature Source Oral Oral Pulse Rate 97 94 Respiratory Rate 18 19 H Respiratory Effort Short of Breath Labored Respiratory Pattern Tachypnea Blood Pressure 108/65 113/62 Blood Pressure Mean 79 79 Pulse Ox 77 89 94 Oxygen Delivery Method Nasal Cannula High Flow High Flow Oxygen Flow Rate (L/min) 4 7 7 08/06/21 15:43 08/06/21 16:20 08/06/21 16:30 Temperature 98.4 F Temperature Source Oral Pulse Rate 89 90 Respiratory Rate 19 H 20 H Respiratory Effort Respiratory Pattern Blood Pressure 127/71 H 124/68 H Blood Pressure Mean 89 86 Pulse Ox 100 95 Oxygen Delivery Method High Flow High Flow Room Air Oxygen Flow Rate (L/min) 7 7 Positive well nourished, well developed and obese; Negative for cachectic, contractures or unkempt General Appearance ED: well developed and NAD; Negative for unkempt, cachectic, contractures or pallor Nutritional Appearance: obese; Negative for cachectic HEENT Reports moist mucous membranes atraumatic; Negative for trauma or tenderness Eyes PERRL and EOMs intact bilaterally General Eye ED: Negative for pale conjunctiva or scleral icterus Neck no lymphadenopathy, supple, no meningeal signs and no JVD General: Negative for tenderness Resp normal respiratory effort and No clear to auscultation bilaterally Resp Narrative: Few scattered wheezes. Auscultation: wheezes; Negative for rales or rhonchi Cardio regular rate, regular rhythm, S1 normal heart sound, S2 normal heart sound and no murmurs GI non-tender, non-distended and no masses Auscultation: normoactive bowel sounds Palpation: soft; Negative for tender, guarding or rebound tenderness present Back/Spine no CVA tenderness and normal to inspection General Back: Negative for CVA tenderness Extremity normal to inspection General Extremety ED: Negative for edema or tenderness General Extremity: Negative for edema Neuro oriented x3 Sensorium / Orientation: alert, oriented to person, oriented to place and oriented to time; Negative for orientation impaired, confused, lethargic or stuporous Motor Exam: strength 5/5 throughout Psych mental status grossly normal Appearance: Negative for unkempt Thought Process: normal thought process Skin no wounds General Skin Exam: Negative for jaundice or pallor Lesions: no lesions Rashes: no rashes MDM MDM MDM Narrative Medical decision making narrative: 55-year-old male with a history of COPD, lung cancer and CHF presents with shortness of breath. Patient undergoing cardiac work-up. To be treated with DuoNeb aerosol. Repeat exam patient is doing better with the increased forced oxygen. It appears that is probably secondary to left lung postobstructive atelectasis, lung mass and most likely a large effusion. This has been seen on prior CAT scans done within the last 10 days. I will speak to the hospitalist about admission. He may need further evaluation by his [employer] architect and oncologist and consideration for a left pleural effusion drainage, possible thoracentesis etc. I discussed all this with the patient. Lab Data Attestation: I reviewed the patient's lab results. Lab results narrative: CBC shows a white count of 10. H&H 12.5 and 44. Platelets are low at 132,000. Electrolytes show sodium 131. Gap at 2. Normal BUN and creatinine. Glucose of 108. Troponin 6. Labs: Laboratory Results - last 24 hr 08/06/21 08/06/21 15:30 15:30 WBC 10.0 RBC 5.08 Hgb 12.5 L Hct 44.2 MCV 87.0 MCH 24.6 L MCHC 28.3 L RDW Std Deviation 56.5 H RDW Coeff of Jean-Paul 17.9 H Plt Count 132 L MPV 10.0 Immature Gran % (Auto) 0.500 Neut % (Auto) 82.9 H Lymph % (Auto) 8.7 L [place] % (Auto) 7.3 Eos % (Auto) 0.4 Baso % (Auto) 0.2 Absolute Neuts (auto) 8.3 H Absolute Lymphs (auto) 0.87 Nucleated RBC % 0 Sodium 131 L Potassium 4.3 Chloride 91 L Carbon Dioxide 38.0 H Anion Gap 2 L BUN 8 Creatinine 0.68 L Estim Creat Clear Calc 119.85 Est GFR (MDRD) Af Amer 154 Est GFR (MDRD) Non-Af 127 BUN/Creatinine Ratio 11.7 Glucose 108 H Calcium 9.0 Troponin I High Sens 6 Radiography Chest X-Ray - ED: 1 View, Read by ED Physician, Heart, Mediastinum, Bony Structures and Chronic Changes Diagnostic Testing: Chest x-ray, portable, single view interpreted myself shows complete whiteout left lung consistent with his prior history of lung cancer with atelectasis and collapse of the left lung. There is a left upper lung mass seen on prior films this may be. Extension of the mass versus atelectasis or postobstructive changes. Could also be secondary to an effusion. Rhythm Strip Rhythm Strip: Sinus Rhythm Rate: 92 Ectopy: None EKG Initial EKG: Attestation: I personally reviewed and interpreted this EKG as follows: Interpretation: Sinus Rhythm and No Acute Injury Pattern Comments: Normal sinus rhythm rate of 92 no acute signs of [place] or ischemia. Prior EKG tracings: available for review Discharge Plan Triage Chief Complaint: Shortness of Breath ED Provider: Kristian Hernandes Dx/Rx/DC Orders Clinical Impression: Acute dyspnea, Hypoxia, COPD (chronic obstructive pulmonary disease), History of lung cancer, Hx of pleural effusion Prescriptions: No Action aspirin 325 mg tablet 325 mg PO DAILY RF: 0 magnesium oxide 420 mg tablet 420 mg PO DAILY RF: 0 semaglutide 1 mg/dose (2 mg/1.5 mL) pen injector 1 mg subcut FR RF: 0 furosemide 40 mg tablet 40 mg PO BREAKFAST RF: 0 atorvastatin 80 mg tablet 80 mg PO QHS RF: 0 hydrocodone-acetaminophen 5-325 mg tablet 1 - 2 tab PO Q6H PRN PRN (Reason: Pain) RF: 0 pantoprazole 20 mg tablet,delayed release (DR/EC) 20 mg PO DAILY RF: 0 lisinopril 10 mg tablet 10 mg PO DAILY RF: 0 ammonium lactate 12 % cream 1 applic TOPICAL TID RF: 0 fluticasone propionate 50 mcg/actuation spray,suspension 1 spray INTRANASAL DAILY RF: 0 metformin 750 mg tablet extended release 24 hr 750 mg PO DAILY RF: 0 Advair HFA 115-21 mcg/actuation HFA aerosol inhaler 1 puff INHALATION BID RF: 0 potassium chloride 20 mEq tablet extended release 20 meq PO DAILY RF: 0 furosemide 40 mg tablet 20 mg PO DINNER RF: 0 albuterol sulfate 2.5 mg /3 mL (0.083 %) solution for nebulization 1 mg inhalation Q8H PRN PRN (Reason: Shortness Of Breath) RF: 0 zinc 50 mg Capsule 50 mg PO DAILY RF: 0 Primary Care Provider: Milena Guevara Referrals: Milena Guevara DO [Primary Care Provider] - Disposition Disposition: Acute Care Hospital [facility]
[2021-08-06] MEDS: Aspirin 81 MG TAB.CHEW 324 MG PO (15:45)
--- NOTE | 2021-08-06 15:45 | EKG12_ITS ---
Test Reason : SOB Blood Pressure : / mmHG Vent. Rate : 092 BPM Atrial Rate : 092 BPM P-R Int : 166 ms QRS Dur : 096 ms QT Int : 364 ms P-R-T Axes : 053 -06 045 degrees QTc Int : 450 ms Normal sinus rhythm Normal ECG Confirmed by MATTHIEU TILLEY, SHAY ([id number]), communications editor DEBORAH KWON ([id number]) on 08/07/2021 11:21:54 AM Referred By: Confirmed By:SHAY SOMMERS MD
--- NOTE | 2021-08-06 15:57 | RAD_ITS ---
STUDY: X-RAY CHEST REASON FOR EXAM: Male, 55 years old. chest pain TECHNIQUE: AP portable COMPARISON: 07/28/2021 FINDINGS: In general the right lung is hyperinflated. There is mild prominence of markings in the right lower lobe. There is loss of volume in the left hemithorax with right to left mediastinal shift and diffuse opacification of the left upper lobe system with left upper lobe collapse and associated small effusion. Heart is enlarged. Normal mediastinum and jonathon. Normal visualized pulmonary arteries. Normal visualized aortic arch and descending thoracic aorta. Normal visualized thoracic spine. Normal visualized ribs, clavicles, and shoulders. There is no demonstrated abnormality of the visualized soft tissue structures of the upper abdomen. There is increased opacification of left upper lobe since prior exam. No other significant change RAD/Chest 1 View (Portable) IMPRESSION: Increasing opacification of left upper lobe since prior study with small pleural effusion.. Electronically Signed: Caleb Cooper MD at 17:16 EDT ,
[2021-08-06 16:06] LABS: Absolute Lymphocyte Count 0.87 X10^3/uL (0.83-4.51); Absolute Neutrophil Count 8.3 X10^3/uL (2.0-7.7); Basophil# 0.02 X10^3/uL; Basophil% 0.2 % (0-1); Eosinophil# 0.04 X10^3/uL; Eosinophils% 0.4 % (0-5); Hematocrit 44.2 % (40-54); Hemoglobin 12.5 g/dL (13.0-16.5); Lymphocyte # 0.87 X10^3/ul (0.83-4.51); Lymphocyte % 8.7 % (19-41); Mean Corp Hgb Conc 28.3 g/dL (32-36); Mean Corpuscular Hgb 24.6 pg (27.0-32.0); Monocyte# 0.73 X10^3/uL; Monocyte% 7.3 % (0-10); NRBC Flagged by Analyzer 0 % (0-5); Neutrophil # 8.33 X10^3/uL (2.7-7.7); Neutrophil % 82.9 % (47-70); Platelet Count 132 K/mm3 (150-450); RBC Distribution Width CV 17.9 % (11.6-14.6); RBC Distribution Width SD 56.5 fl (35.1-43.9); Red Blood Count 5.08 M/mm3 (4.6-6.2)
[2021-08-06 16:13] LABS: Anion Gap 2 (5-15); BUN 8 mg/dL (7-18); BUN/Creat Ratio 11.7 RATIO (10-20); Chloride 91 mmol/L (98-107); Creatinine, Serum 0.68 mg/dL (0.70-1.30); EST Glomerular Filtration Rate 127 mL/min (>60); Est Glom Filt Rate - Afr Amer 154 mL/min (>60); Estimated Creatinine Clearance 119.85 ml/min; Glucose 108 mg/dL (74-106); Potassium 4.3 mmol/L (3.5-5.1); Sodium Level 131 mmol/L (136-145); Troponin-I HS 6 pg/mL (3.0-78.0)
--- NOTE | 2021-08-06 16:50 | NURSING ---
DR SAM GENAO
--- NOTE | 2021-08-06 16:54 | CT_ITS ---
INDICATION: left lung mass w/ effusion and atelectasis EXAMINATION: CT Chest W/O Contrast Injection TECHNIQUE: Helically acquired images were obtained of the chest without IV contrast. A radiation dose optimization technique was used for this scan. COMPARISON: 07/28/2021. FINDINGS: Lungs: Persistent left upper lobe lung collapse. Mediastinum: The heart is borderline enlarged. No mediastinal, hilar or axillary adenopathy. Mild aortic arch and coronary artery calcifications. Pleura: Interval worsening of large left loculated pleural effusion. Bones/Soft tissues: Mild scattered degenerative changes of the visualized spine. Upper abdomen: Cirrhotic liver. Splenomegaly. CT/Chest without Contrast IMPRESSION: Interval worsening of large left loculated pleural effusion with associated left upper lobe lung collapse. No other changes. Electronically Signed: Adam Hargrove MD at 19:31 EDT ,
--- NOTE | 2021-08-06 16:58 | NURSING ---
PCU OBS SAM DYSPNEA, HYPOXIA, LUNG CA, ATELECTASIS, PLEURAL EFFUSION
--- NOTE | 2021-08-06 17:04 | HP.PCM.HOS_ITS ---
HPI - General General Date of Admission: 08/06/21 HPI Narrative SHAAN WHITAKER, is a 55 M who presented to [facility] on 08/06/2021 with worsening shortness of breath. The patient was recently diagnosed with non-small cell lung CA-squamous cell and is following with Dr. Tuttle and Dr. Kingsley for this. Diagnostic bronchoscopy was performed on 07/28/2021 and the patient was seen this week on 08/02/2021 by pulmonary medicine in 08/03/2021 by oncology. Staging is in process with an outpatient MRI and PET scan pending for this next week. The patient has an obstructing intrabronchial left-sided lung mass with known partial left lung collapse. He reports that he was doing okay on his baseline 2 L nasal cannula however approximately 3 days ago he started having more shortness of breath, intermittent hemoptysis, and sputum production. He states that this time the hemoptysis is resolved for couple days but he still having sputum production and more shortness of breath. He reported this morning was really bad and he could not catch his oxygen despite turning h is nasal cannula up as high as he could get it to go home to 6 L. He was tachypneic with oxygen saturations at 77% on 4 L nasal cannula upon arrival. His oxygen had to be subsequently uptitrated and he is now on 7 L heated high flow nasal cannula with oxygen saturations from 89 to 100%. He denies any fever chills, nausea, vomiting, diarrhea, constipation, melena, hematochezia, hematemesis, chest pain, tingling, numbness, or weakness. Vital signs upon presentation showed a temperature of 98.6, blood pressure of 108/65, respiratory rate 19-20, and oxygen saturations were initially 77% on 4 L nasal cannula. His CBC shows a mildly reduced hemoglobin at 12.5 but that is stable when compared to his hemoglobin on 07/29/2021. He also has a mild thrombocytopenia with a platelet count of 132,000, this appears to be chronic. He does have a left shift. His chemistry panel shows mild chronic stable hyponatremia with a sodium of 131, chronically elevated serum bicarbonate, normal renal function and a high-sensitivity troponin was 6. A chest x-ray of his chest was performed and shows increasing opacification of the left upper lobe since recent study and a pleural effusion. A CT of his chest was performed and read was pending on admission. His CT when reviewed by me looks overall stable with possible effusion and a large left upper lobe mass. Given the fact he was more hypoxic than his baseline oxygen requirements request for admission was made. COUNTS INCLUDE 234 BEDS AT THE [facility] Medical History (Updated 08/06/21 @ 17:[address] Nannette Pritchard DO) Abnormal EKG Arthralgia of hand Arthritis BMI 50.0-59.9, adult Cancer Chronic back pain greater than 3 months duration COPD (chronic obstructive pulmonary disease) Diabetes Diastolic congestive heart failure Fatigue Fatty liver GERD (gastroesophageal reflux disease) High cholesterol History of CHF (congestive heart failure) History of chronic respiratory failure History of edema History of fracture of left hip History of rectal bleeding History of stress test Hypertension Leg cramps Neck muscle spasm Nicotine dependence, cigarettes, uncomplicated Non-insulin dependent type 2 diabetes mellitus On home oxygen therapy Osteoarthritis Polycythemia secondary to smoking Poor dentition Seasonal allergies Secondary restless legs syndrome Shortness of breath on exertion Sleep apnea, obstructive Smoker Thrombocytopenia Wears glasses Home Medications Advair HFA 1 puff INHALATION BID 07/06/21 [History Last Taken Unknown] albuterol sulfate 1 mg INHALATION Q8H PRN PRN 07/06/21 [History Last Taken Unknown] ammonium lactate 1 applic TOPICAL TID 07/06/21 [History Last Taken Unknown] atorvastatin 80 mg PO QHS 07/06/21 [History Last Taken Unknown] fluticasone propionate 1 spray INTRANASAL DAILY 07/06/21 [History Last Taken Unknown] furosemide 20 mg PO DINNER 07/06/21 [History Last Taken Unknown] furosemide 40 mg PO BREAKFAST 07/06/21 [History Last Taken Unknown] hydrocodone-acetaminophen 1 - 2 tab PO Q6H PRN PRN 07/06/21 [History Last Taken Unknown] lisinopril 10 mg PO DAILY 07/06/21 [History Last Taken Unknown] metformin 750 mg PO DAILY 07/06/21 [History Last Taken Unknown] pantoprazole 20 mg PO DAILY 07/06/21 [History Last Taken Unknown] potassium chloride 20 meq PO DAILY 07/06/21 [History Last Taken Unknown] aspirin 325 mg tablet 325 mg PO DAILY 07/12/21 [History Last Taken 07/20/21] magnesium oxide 420 mg tablet 420 mg PO DAILY 07/12/21 [History Last Taken Unknown] semaglutide 1 mg/dose (2 mg/1.5 mL) subcutaneous pen injector 1 mg SUBCUT FR 07/12/21 [History Last Taken Unknown] zinc 50 mg PO DAILY 07/27/21 [History Last Taken Unknown] Allergy/AdvReac Type Severity Reaction Status Date / Time No Known Allergies Allergy Verified 08/02/21 14:09 Family History Mother Heart disease Father Diabetes Brother Heart disease Surgical History History of back surgery History of cardiac catheterization History of cholecystectomy History of surgery on lower extremity Hx laparoscopic cholecystectomy Social History (Updated 08/06/21 @ 17:[address] Nannette Pritchard DO) Smoking Status: Current some day smoker tobacco type: cigarettes Tobacco: How many years used: 40 alcohol intake: never substance use type: does not use ROS Constitutional Constitutional: Denies anorexia, change in weight, chills, fatigue, fever(s), malaise, night sweats, weakness or other Eyes Eyes: Denies blurry vision, change in eye color, change in vision, discharge from eye(s), double vision, erythema, eye pain, loss of vision or other ENT HEENT: Denies abnormal hearing, dysphagia, ear pain, epistaxis, headache(s), hearing loss, nasal congestion, nasal discharge, post nasal drip, sinus pressure, sore throat or other Cardiovascular Cardiovascular: Reports dyspnea on exertion; Denies chest pain, claudication, edema, lightheadedness, orthopnea, palpitations, paroxysmal nocturnal dyspnea, rapid heart rate, syncope or other Respiratory/Chest Respiratory/Chest: Reports cough, dyspnea, excessive phlegm production, productive cough and other Details: Hemoptysis-now resolved Gastrointestinal Gastrointestinal: Denies abdominal pain, coffee ground emesis, constipation, diarrhea, dyspepsia, hematemesis, hematochezia, loose stools, melena, nausea, vomiting or other Genitourinary Genitourinary: Denies burning urination, difficulty urinating, dysuria, hematuria, nocturia, urinary frequency, urinary hesitancy, urinary incontinence, urinary urgency or other Musculoskeletal Musculoskeletal: Denies arthralgias, back pain, joint pain, joint stiffness, joint swelling, myalgias, neck pain or other Neurologic Neurologic: Denies abnormal gait, abnormal speech, confusion, disequilibrium, dizziness, focal weakness, headache(s), numbness, paresthesias, seizure-like activity, seizures, syncope, tingling, tremor(s) or other Psychiatric Psychiatric: Denies anxiety, depression, homicidal ideation, suicidal ideation or other Endocrine Endocrinology: Denies change in body appearance, cold intolerance, excessive sweating, heat intolerance, polydipsia, polyuria or other Hematologic/Lymphatic Hematologic/Lymphatic: Denies anemia, easy bleeding, easy bruising, lymphadenopathy or other Allergic/Immunologic Allergic/Immunologic: Denies rhinitis, hives, eczemia, asthma or other Vital Signs Vital Signs Vital Signs: 08/06/21 15:26 08/06/21 15:31 08/06/21 15:34 Temperature 98.6 F 98.6 F Temperature Source Oral Oral Pulse Rate 97 94 Respiratory Rate 18 19 H Respiratory Effort Short of Breath Labored Respiratory Pattern Tachypnea Blood Pressure 108/65 113/62 Blood Pressure Mean 79 79 Pulse Ox 77 89 94 Oxygen Delivery Method Nasal Cannula High Flow High Flow Oxygen Flow Rate (L/min) 4 7 7 08/06/21 15:43 08/06/21 16:20 08/06/21 16:30 Temperature 98.4 F Temperature Source Oral Pulse Rate 89 90 Respiratory Rate 19 H 20 H Respiratory Effort Respiratory Pattern Blood Pressure 127/71 H 124/68 H Blood Pressure Mean 89 86 Pulse Ox 100 95 Oxygen Delivery Method High Flow High Flow Room Air Oxygen Flow Rate (L/min) 7 7 Weight Weight: 156 kg Body Mass Index (BMI) 50.8 Physical Exam Const alert and oriented x3 Constitutional Narrative: Morbidly obese, middle-aged, white male who appears older than stated age, sitting up in bed, appears nontoxic and comfortable at this time, patient indicates he is much more comfortable now that he is on more oxygen General Appearance: cooperative HEENT normocephalic, head/scalp atraumatic and moist oral mucous membranes HEENT Narrative: Mild hearing loss, Mallampati 3-4, no thrush Eyes PERRL, EOMs intact bilaterally and conjunctivae normal Eyes Narrative: No scleral icterus Neck no lymphadenopathy, supple and no JVD Neck Narrative: Neck is short and thick Resp normal respiratory effort and no retractions Resp Narrative: Diffusely diminished with marked reduction in lung sounds at left upper lung field, mild tachypnea, no signs of extremis Auscultation: Negative for crackles, rales, rhonchi or wheezes Cardio regular rate, regular rhythm, S1 normal heart sound, S2 normal heart sound, no murmurs, no rub, no gallops, no clicks and no JVD GI normal to inspection, nondistended, normoactive bowel sounds, soft to palpation, non-tender and non-distended Extremity no clubbing, cyanosis or edema Peripheral Pulses: Yes pulses 2+ throughout Skin no rashes or lesions noted, no wounds, skin turgor normal, no jaundice, no petechiae and no mottling Neuro oriented x3, CN's II-XII intact bilaterally, moves all extremities and no focal motor deficits Sensorium / Orientation: awake and alert Speech: speech normal Motor Exam: strength 5/5 throughout Psych affect normal Psych Narrative: Very pleasant, jovial, appropriately interactive Results Lab / Micro Data Attestation: I reviewed the patient's lab results. Result Diagrams: 08/06/21 15:30 08/06/21 15:30 Labs: Laboratory Results - last 24 hr 08/06/21 15:30: WBC 10.0, RBC 5.08, Hgb 12.5 L, Hct 44.2, MCV 87.0, MCH 24.6 L, MCHC 28.3 L, RDW Std Deviation 56.5 H, RDW Coeff of Jean-Paul 17.9 H, Plt Count 132 L, MPV 10.0, Immature Gran % (Auto) 0.500, Neut % (Auto) 82.9 H, Lymph % (Auto) 8.7 L, [place] % (Auto) 7.3, Eos % (Auto) 0.4, Baso % (Auto) 0.2, Absolute Neuts (auto) 8.3 H, Absolute Lymphs (auto) 0.87, Nucleated RBC % 0 08/06/21 15:30: Sodium 131 L, Potassium 4.3, Chloride 91 L, Carbon Dioxide 38.0 H, Anion Gap 2 L, BUN 8, Creatinine 0.68 L, Estim Creat Clear Calc 119.85, Est GFR (MDRD) Af Amer 154, Est GFR (MDRD) Non-Af 127, BUN/Creatinine Ratio 11.7, Glucose 108 H, Calcium 9.0, Troponin I High Sens 6 Rhythm Strip Rhythm Strip: Sinus Rhythm Rate: 92 Ectopy: None Assessment & Plan Assessment/Plan (1) Acute and chronic respiratory failure with hypoxia: (2) Squamous cell lung cancer: QUALIFIERS: Laterality: left Qualified Code(s): C34.92 - Malignan t neoplasm of unspecified part of left bronchus or lung (3) Acute dyspnea: (4) Hx of pleural effusion: (5) Hemoptysis: PLAN: Acute on chronic hypoxic respiratory failure-multifactorial -Patient on 2 L nasal cannula at baseline -Presented with marked hypoxia oxygen saturations in the 70s on 4 L nasal cannula with tachypnea -Improved but now on 7 L heated high flow nasal cannula -Wean as able -Chest x-ray shows complete whiteout of left chest that is worse than previous -CT of chest pending -Concern for postobstructive pneumonia -Obtain strep pneumo and Legionella antigens -We will start broad coverage antimicrobials with linezolid and Zosyn -Sputum culture -Incentive spirometry -We will try to obtain a thoracentesis for therapeutic benefit and diagnostic benefit for parapneumonic effusion if present -I have not sure if they will be enough fluid to tap at this point however we will have to look with ultrasound first -Studies were ordered including cultures and serum LDH for calculation of lights criteria -As needed DuoNebs -Incentive spirometry -Consult pulmonary medicine Hemoptysis -Currently has resolved -Known left mainstem endobronchial lesion -Cut off noted on imaging -Hold home full dose aspirin until evaluated by pulmonary medicine Left pleural effusion -We will try for thoracentesis however I am not sure there is good to be enough fluid to remove -Coags in a.m. -Hold home aspirin Newly diagnosed squamous cell carcinoma of the left lung -Staging in progress -Outpatient MRI and PET scan ordered for next week -Following with Dr. Tuttle and Dr. Kingsley COPD -Continue home inhalers DECLAN -Patient noncompliant with home therapy -Oxygen Hypertension -Continue home lisinopril -Continue home Lasix Hyperlipidemia -Continue home atorvastatin DM-2 -Hold home metformin -Received Trulicity every Saturday -Sliding scale insulin -Accu-Cheks before meals and at bedtime -Carb controlled diet GERD -Continue Protonix DVT prophylaxis -SCDs -Hold chemoprophylaxis secondary to hemoptysis -Monitor clinically and consider initiation of hospitalization will be for longer than 24 to 48 hours CODE STATUS -Full code is verified on admission Charges/Coding Visit Charges Inpatient E&M: 33144 Init Hosp L3
--- NOTE | 2021-08-06 17:43 | US_ITS ---
STUDY: SUPERFICIAL ULTRASOUND - PLEURAL SPACE. REASON FOR EXAM: Male, 55 years old. L effusion TECHNIQUE: A superficial ultrasound was performed with real-time and static bledsoe-scale imaging. COMPARISON: None. FINDINGS: Imaging of the left pleural cavity was performed. Minimal left pleural effusion. US/Chest IMPRESSION: Minimal left pleural effusion. Electronically Signed: Jovany Rasmussen MD at 15:18 EDT ,
[2021-08-06 18:48] LABS: International Normalized Ratio 1.1; Prothrombin Time (Protime)PT. 13.7 SECONDS (11.7-14.9)
[2021-08-06] MEDS: Furosemide 20 MG Tablet PO (19:04)
[2021-08-06] MEDS: Albuterol 2.5 MG/3 ML VIAL.NEB. INHALATION (19:35)
[2021-08-06] MEDS: Budesonide Respules 0.5 MG/2 ML AMPUL.NEB. INHALATION (19:35)
[2021-08-06] MEDS: Atorvastatin Calcium 80 MG Tablet PO (20:48)
[2021-08-06 21:21] LABS: Bedside Glucose 140 mg/dL (74-106)
[2021-08-06] MEDS: Linezolid 600 MG 600 MG/300 ML BAG 200 MG IV (23:35)
[2021-08-07] VITALS (12 sets, daily range): BP systolic 93–120; BP diastolic 58–84; PULSE 81–92; RESP 18–24; TEMP 36.1–37.1; O2SAT 92–96
[2021-08-07 05:04] LABS: Absolute Lymphocyte Count 0.59 X10^3/uL (0.83-4.51); Absolute Neutrophil Count 7.7 X10^3/uL (2.0-7.7); Basophil# 0.02 X10^3/uL; Basophil% 0.2 % (0-1); Eosinophil# 0.04 X10^3/uL; Eosinophils% 0.4 % (0-5); Hematocrit 41.9 % (40-54); Hemoglobin 11.8 g/dL (13.0-16.5); Lymphocyte # 0.59 X10^3/ul (0.83-4.51); Lymphocyte % 6.5 % (19-41); Mean Corp Hgb Conc 28.2 g/dL (32-36); Mean Corpuscular Hgb 24.8 pg (27.0-32.0); Mean Corpuscular Volume 88.2 fL (80-94); Mean Platelet Vol. 9.5 fl (6.2-12.0); Monocyte# 0.77 X10^3/uL; Monocyte% 8.4 % (0-10); NRBC Flagged by Analyzer 0 % (0-5); Neutrophil # 7.66 X10^3/uL (2.7-7.7); Neutrophil % 83.8 % (47-70); POSITIVE DIFFERENTIAL YES; Platelet Count 105 K/mm3 (150-450); RBC Distribution Width CV 17.8 % (11.6-14.6); RBC Distribution Width SD 57.3 fl (35.1-43.9); Red Blood Count 4.75 M/mm3 (4.6-6.2); White Blood Count 9.1 K/mm3 (4.4-11.0)
[2021-08-07 05:24] LABS: Differential Indicated SCAN CRITERIA MET
[2021-08-07 05:39] LABS: ALB/GLOB Ratio 0.6 RATIO (0.9-2.4); AST(SGOT) 19 U/L (15-37); Alanine Aminotransfer ALT/SGPT 12 U/L (16-61); Albumin, Serum 2.5 g/dL (3.2-5.0); Alkaline Phosphatase 100 U/L (45-117); Anion Gap 0 (5-15); BUN 7 mg/dL (7-18); BUN/Creat Ratio 11.8 RATIO (10-20); Calcium,Total 8.5 mg/dL (8.5-10.1); Chloride 92 mmol/L (98-107); EST Glomerular Filtration Rate 149 mL/min (>60); Est Glom Filt Rate - Afr Amer 180 mL/min (>60); Estimated Creatinine Clearance 135.84 ml/min; Globulin 4.5 g/dL (2.2-4.2); Glucose 145 mg/dL (74-106); LDH 235 U/L (87-241); Magnesium 2.2 mg/dL (1.6-2.6); Potassium 4.5 mmol/L (3.5-5.1); Sodium Level 132 mmol/L (136-145)
[2021-08-07 05:40] LABS: Phosphorus 4.3 mg/dL (2.5-4.9)
[2021-08-07 06:17] LABS: Differential Comment SCANNED
[2021-08-07 07:00] LABS: Bedside Glucose 143 mg/dL (74-106)
[2021-08-07] MEDS: Budesonide Respules 0.5 MG/2 ML AMPUL.NEB. INHALATION ×2 (07:07→19:55)
[2021-08-07] MEDS: Albuterol 2.5 MG/3 ML VIAL.NEB. INHALATION ×2 (07:07→19:55)
--- NOTE | 2021-08-07 07:42 | EX.PCM.CONCC ---
Assessment & Plan Assessment/Plan (1) Acute and chronic respiratory failure with hypoxia: PLAN: RECOMMENDATIONS: 1. Wean supplemental oxygen to maintain saturations at or above 90%. 2. Continue antimicrobials. 3. Continue bronchodilator therapy. 4. Encourage incentive spirometer use and mobilize patient as tolerated. 5. Proceed with ultrasound-guided thoracentesis, if feasible. 6. Outpatient follow-up to complete lung cancer staging, including PET and MRI brain. IMPRESSIONS: 1. Acute on chronic hypoxemic respiratory failure The patient presented to the hospital with worsening shortness of breath, hypoxemia and self-limited hemoptysis. This is undoubtedly related to his underlying malignancy with probable postobstructive pneumonia. The patient has a baseline oxygen requirement of 2 L/min. The loculated effusion noted on prior chest imaging has increased in size. Therefore, it is reasonable to consider an ultrasound-guided thoracentesis, if feasible. The patient will be maintained on supplemental O2 for saturations greater than 90%. I agree with continuing empiric antimicrobials for now. The patient ultimately needs to complete his staging work-up for his cancer including PET scan and MRI to facilitate treatment being initiated as quickly as possible. In addition, the patient needs to complete pulmonary function studies on an outpatient basis. In the interim, we will continue scheduled bronchodilators as ordered. 2. Newly diagnosed squamous cell carcinoma of the lung The patient will require close outpatient follow-up with oncology. He still needs to complete his staging work-up including MRI brain and PET scan. 3. Chronic tobacco dependency/suspected sleep apnea and alveolar hypoventilation secondary to obesity Complicates care, management, recovery and prognosis. The patient has never completed a sleep study, nor is he interested in utilizing any form of nocturnal Pap therapy. This note was generated with [employer] dictation software. It may contain incorrect words, spelling, and punctuation that were not noted in checking the note before signing. HPI Consult Data Date of Consult: 08/07/21 HPI Narrative Reason for Consultation: Shortness of breath with hypoxia HPI Narrative: The patient is a 55-year-old male, with a history as outlined below, who presented to the emergency department on August 06 with progressive shortness of breath and hemoptysis. I recently diagnosed the patient with non-small cell carcinoma involving the left upper lobe bronchus. He just establish care with oncology approximately 3 days ago. MRI and PET scan were ordered. The patient has an approximate [id number] smoking history and continues to smoke 2 to 3 cigarettes/day. 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 The patient is now on disability. There has been concerned that the patient has underlying sleep apnea, along with heart failure with preserved ejection fraction. Nevertheless, the patient has never completed a sleep study, as he is not interested in utilizing any form of nocturnal Pap therapy. On presentation to the emergency department, the patient was noted to be afebrile and hemodynamically stable. The patient ultimately required 7 L/min of supplemental oxygen to maintain appropriate saturations. Laboratory evaluation revealed no evidence of a leukocytosis. Platelet count was stable at 132,000. Chemistry profile was notable for an elevated bicarbonate at 38. CT chest demonstrated persistent left upper lobe collapse with an enlarging loculated pleural effusion. The patient was subsequently placed on antimicrobials and admitted to the progressive care unit for further management. [facility] Medical History (Updated 08/06/21 @ 17:[address] Nannette Pritchadr, ) Abnormal EKG Arthralgia of hand Arthritis BMI 50.0-59.9, adult Cancer Chronic back pain greater than 3 months duration COPD (chronic obstructive pulmonary disease) Diabetes Diastolic congestive heart failure Fatigue Fatty liver GERD (gastroesophageal reflux disease) High cholesterol History of CHF (congestive heart failure) History of chronic respiratory failure History of edema History of fracture of left hip History of rectal bleeding History of stress test Hypertension Leg cramps Neck muscle spasm Nicotine dependence, cigarettes, uncomplicated Non-insulin dependent type 2 diabetes mellitus On home oxygen therapy Osteoarthritis Polycythemia secondary to smoking Poor dentition Seasonal allergies Secondary restless legs syndrome Shortness of breath on exertion Sleep apnea, obstructive Smoker Thrombocytopenia Wears glasses Home Medications Advair HFA 1 puff INHALATION BID 07/06/21 [History Last Taken Unknown] albuterol sulfate 1 mg INHALATION Q8H PRN PRN 07/06/21 [History Last Taken Unknown] ammonium lactate 1 applic TOPICAL TID 07/06/21 [History Last Taken Unknown] atorvastatin 80 mg PO QHS 07/06/21 [History Last Taken Unknown] fluticasone propionate 1 spray INTRANASAL DAILY 07/06/21 [History Last Taken Unknown] furosemide 20 mg PO DINNER 07/06/21 [History Last Taken Unknown] furosemide 40 mg PO BREAKFAST 07/06/21 [History Last Taken Unknown] hydrocodone-acetaminophen 1 - 2 tab PO Q6H PRN PRN 07/06/21 [History Last Taken Unknown] lisinopril 10 mg PO DAILY 07/06/21 [History Last Taken Unknown] metformin 750 mg PO DAILY 07/06/21 [History Last Taken Unknown] pantoprazole 20 mg PO DAILY 07/06/21 [History Last Taken Unknown] potassium chloride 20 meq PO DAILY 07/06/21 [History Last Taken Unknown] aspirin 325 mg tablet 325 mg PO DAILY 07/12/21 [History Last Taken 07/20/21] magnesium oxide 420 mg tablet 420 mg PO DAILY 07/12/21 [History Last Taken Unknown] semaglutide 1 mg/dose (2 mg/1.5 mL) subcutaneous pen injector 1 mg SUBCUT FR 07/12/21 [History Last Taken Unknown] zinc 50 mg PO DAILY 07/27/21 [History Last Taken Unknown] Allergy/AdvReac Type Severity Reaction Status Date / Time No Known Allergies Allergy Verified 08/02/21 14:09 Family History Mother Heart disease Father Diabetes Brother Heart disease Surgical History History of back surgery History of cardiac catheterization History of cholecystectomy History of surgery on lower extremity Hx laparoscopic cholecystectomy Social History (Updated 08/06/21 @ 17:[address] Nannette Pritchard DO) Smoking Status: Light Smoker (<10/day) Tobacco: How many years used: 40 alcohol intake: never substance use type: does not use ROS Constitutional Constitutional: Denies chills, fatigue or fever(s) Eyes Eyes: Denies blurry vision or change in vision ENT HEENT: Denies dizziness, dysphagia, epistaxis or headache(s) Cardiovascular Cardiovascular: Reports dyspnea; Denies chest pain Respiratory/Chest Respiratory/Chest: Reports dyspnea and hemoptysis Gastrointestinal Gastrointestinal: Denies abdominal pain, diarrhea, nausea or vomiting Genitourinary Genitourinary: Denies difficulty urinating Musculoskeletal Musculoskeletal: Denies arthralgias, back pain or joint pain Integumentary Integumentary: Denies lesions, rash or skin ulcer Neurologic Neurologic: Denies abnormal gait or abnormal speech Psychiatric Psychiatric: Denies anxiety or depression Endocrine Endocrinology: Denies fatigue Hematologic/Lymphatic Hematologic/Lymphatic: Denies easy bleeding or easy bruising Physical Exam Const alert and no apparent distress Constitutional Narrative: Super morbidly obese. General Appearance: cooperative HEENT normocephalic, head/scalp atraumatic and moist oral mucous membranes Eyes PERRL, EOMs intact bilaterally and conjunctivae normal Neck supple General: trachea midline Chest inspection of chest normal Resp no use of accessory muscles Effort and Inspection: able to speak in complete sentences Auscultation: diminished lung sounds; Negative for rales, rhonchi or wheezes Cardio regular rate and regular rhythm GI normal to inspection, nondistended, normoactive bowel sounds Extremity no clubbing, cyanosis or edema Skin no rashes or lesions noted Neuro CN's II-XII intact bilaterally, moves all extremities and no focal motor deficits Psych cooperative and affect normal Lab / Micro Data Result Diagrams: 08/07/21 04:38 08/07/21 04:38 Labs: Laboratory Results - last 24 hr 08/06/21 15:30: WBC 10.0, RBC 5.08, Hgb 12.5 L, Hct 44.2, MCV 87.0, MCH 24.6 L, MCHC 28.3 L, RDW Std Deviation 56.5 H, RDW Coeff of Jean-Paul 17.9 H, Plt Count 132 L, MPV 10.0, Immature Gran % (Auto) 0.500, Neut % (Auto) 82.9 H, Lymph % (Auto) 8.7 L, [place] % (Auto) 7.3, Eos % (Auto) 0.4, Baso % (Auto) 0.2, Absolute Neuts (auto) 8.3 H, Absolute Lymphs (auto) 0.87, Nucleated RBC % 0 08/06/21 15:30: Sodium 131 L, Potassium 4.3, Chloride 91 L, Carbon Dioxide 38.0 H, Anion Gap 2 L, BUN 8, Creatinine 0.68 L, Estim Creat Clear Calc 119.85, Est GFR (MDRD) Af Amer 154, Est GFR (MDRD) Non-Af 127, BUN/Creatinine Ratio 11.7, Glucose 108 H, Calcium 9.0, Troponin I High Sens 6 08/06/21 15:30: PT 13.7, INR 1.1 08/06/21 20:47: POC Glucose 140 H 08/07/21 04:38: Sodium 132 L, Potassium 4.5, Chloride 92 L, Carbon Dioxide 40.0 H, Anion Gap 0 L, BUN 7, Creatinine 0.60 L, Estim Creat Clear Calc 135.84, Est GFR (MDRD) Af Amer 180, Est GFR (MDRD) Non-Af 149, BUN/Creatinine Ratio 11.8, Glucose 145 H, Calcium 8.5, Magnesium 2.2, Total Bilirubin 0.70, AST 19, ALT 12 L, Alkaline Phosphatase 100, Lactate Dehydrogenase 235, Total Protein 7.0, Albumin 2.5 L, Globulin 4.5 H, Albumin/Globulin Ratio 0.6 L 08/07/21 04:38: WBC 9.1, RBC 4.75, Hgb 11.8 L, Hct 41.9, MCV 88.2, MCH 24.8 L, MCHC 28.2 L, RDW Std Deviation 57.3 H, RDW Coeff of Jean-Paul 17.8 H, Plt Count 105 L, MPV 9.5, Immature Gran % (Auto) 0.700, Neut % (Auto) 83.8 H, Lymph % (Auto) 6.5 L, [place] % (Auto) 8.4, Eos % (Auto) 0.4, Baso % (Auto) 0.2, Absolute Neuts (auto) 7.7, Absolute Lymphs (auto) 0.59 L, Nucleated RBC % 0, Differential Comment SCANNED 08/07/21 04:38: Phosphorus 4.3 08/07/21 06:43: POC Glucose 143 H Micro: Microbiology 08/06/21 21:31 Urine, Clean Catch Legionella Antigen - Final Rhythm Strip Rhythm Strip: Sinus Rhythm Rate: 92 Ectopy: None Radiology Impression Chest X-Ray 08/06/21 15:57 IMPRESSION: Increasing opacification of left upper lobe since prior study with small pleural effusion.. Electronically Signed: Caleb Cooper MD at 17:16 EDT , Chest CT 08/06/21 16:54 IMPRESSION: Interval worsening of large left loculated pleural effusion with associated left upper lobe lung collapse. No other changes. Electronically Signed: Adam Hargrove MD at 19:31 EDT , Charges/Coding Visit Charges Inpatient E&M: 24292 Init Hosp L3
[2021-08-07] MEDS: Furosemide 40 MG Tablet PO (08:43)
[2021-08-07] MEDS: Linezolid 600 MG 600 MG/300 ML BAG 200 MG IV ×2 (10:32→20:34)
[2021-08-07] MEDS: Fluticasone 0.05% 1 SPRAY NASAL.SRY NASAL (10:33)
[2021-08-07] MEDS: Pantoprazole Sodium 20 MG Tablet PO (10:33)
--- NOTE | 2021-08-07 11:10 | CASEMGMT ---
RN CM SQL DATABASE PROGRAMMER CM to room to meet with patient for initial transition planning/care coordination assessment. RN CM introduced self and role at [facility]. Pt voices understanding and consents to assessment at this time. Pt resting in bed in no distress at this time. Pt sleepy and kept falling asleep in mid-sentence initially, but then he sat @ edge of bed and completed RN CM assessment. Pt is A/O at this time and answers all questions appropriately. Care providers, pharmacy, and demographics verified/updated at this time. PCP: Milena Guevara Specialists: Dr Tuttle-oncology, Dr Kingsley and Jamila Dawkins, CANDY POLISHER--pulmonology. Preferred Pharmacy: [facility] Retail Insurance: [facility] Dual/ISMA Prescription Benefit: Yes Living Will/HPOA: Pt has both LW and HPOA, who is his mother, Eleni. LNOK: Mother, Eleni Living Arrangements: Lives alone in downstairs apt w/10 steps to go down. He states he is independent w/ADL's. He reports difficulty w/doing home mgt tasks and states could use assistance w/grocery shopping, stating, I just get so confused. He is interested in any resources that may be available. DAYTON, Sharmaine, made aware. Transportation: Pt states drives self and states no transportation concerns at this time. Sis-in-law will take him home @ d/c. DME: States has the following DME: O2 @ 2 l/m through [facility] Has concentrator and portability. Sis-in-law can bring portable tank in @ d/c for him to go home on. Pt states insurance is now covering for cost of oxygen since last admission. He has a functioning glucometer and supplies, nebulizer, and pulse ox. Pt states no need for further DME at this time. HHC/SNF: No hx of either. Denies need for HHC. Pt wishes to return home and states has no concerns with going home at time of discharge. Pt states he does not drink ETOH. He smokes one or 2 cigarettes a day. He would like to be on the patches, but states his insurance will not cover for them. He is not interested in further smoking cessation info. CM to follow for any increase in home oxygen needs and any further discharge planning/needs. Pt voices no further concerns/needs at this time. Advised pt to ask for CM if any further questions/concerns/needs arise. Voices understanding. PLAN: Home. CM to follow for any increase in oxygen needs @ d/c. Bety BSN RN CM
--- NOTE | 2021-08-07 11:58 | PN.HOSP_ITS ---
Subjective Subjective Patient seen and examined. He still complains of a bit of shortness of breath but states is better than when he came in. He denied any chest pain, palpitations, dizziness, nausea vomiting or diarrhea. Review of systems otherwise negative. He has remained hemodynamically stable though blood pressure is running slightly low as 95/84. Objective Data Objective Data Vital Signs: Vital Signs Temp Pulse Resp BP Pulse Ox 97.1 F L 85 18 95/84 H 94 08/07/21 10:00 08/07/21 10:00 08/07/21 10:00 08/07/21 10:00 08/07/21 10:00 Oxygen Flow Rate (L/min) 7 Oxygen Delivery Method High Flow Weight: 345 lb 14.484 oz Body Mass Index (BMI) 50.9 Intake & Output: Intake and Output for Last 24 Hours 08/05/21 08/06/21 08/07/21 23:59 23:59 23:59 Intake Total 50 / 170 470 / 470 Output Total 1175 / 1175 Balance 50 / -230 -705 / -705 Lab / Micro Data Result Diagrams: 08/07/21 04:38 08/07/21 04:38 Labs: Laboratory Results - last 24 hr 08/06/21 15:30: WBC 10.0, RBC 5.08, Hgb 12.5 L, Hct 44.2, MCV 87.0, MCH 24.6 L, MCHC 28.3 L, RDW Std Deviation 56.5 H, RDW Coeff of Jean-Paul 17.9 H, Plt Count 132 L, MPV 10.0, Immature Gran % (Auto) 0.500, Neut % (Auto) 82.9 H, Lymph % (Auto) 8.7 L, [place] % (Auto) 7.3, Eos % (Auto) 0.4, Baso % (Auto) 0.2, Absolute Neuts (auto) 8.3 H, Absolute Lymphs (auto) 0.87, Nucleated RBC % 0 08/06/21 15:30: Sodium 131 L, Potassium 4.3, Chloride 91 L, Carbon Dioxide 38.0 H, Anion Gap 2 L, BUN 8, Creatinine 0.68 L, Estim Creat Clear Calc 119.85, Est GFR (MDRD) Af Amer 154, Est GFR (MDRD) Non-Af 127, BUN/Creatinine Ratio 11.7, G lucose 108 H, Calcium 9.0, Troponin I High Sens 6 08/06/21 15:30: PT 13.7, INR 1.1 08/06/21 20:47: POC Glucose 140 H 08/07/21 04:38: Sodium 132 L, Potassium 4.5, Chloride 92 L, Carbon Dioxide 40.0 H, Anion Gap 0 L, BUN 7, Creatinine 0.60 L, Estim Creat Clear Calc 135.84, Est GFR (MDRD) Af Amer 180, Est GFR (MDRD) Non-Af 149, BUN/Creatinine Ratio 11.8, Glucose 145 H, Calcium 8.5, Magnesium 2.2, Total Bilirubin 0.70, AST 19, ALT 12 L, Alkaline Phosphatase 100, Lactate Dehydrogenase 235, Total Protein 7.0, Albumin 2.5 L, Globulin 4.5 H, Albumin/Globulin Ratio 0.6 L 08/07/21 04:38: WBC 9.1, RBC 4.75, Hgb 11.8 L, Hct 41.9, MCV 88.2, MCH 24.8 L, MCHC 28.2 L, RDW Std Deviation 57.3 H, RDW Coeff of Jean-Paul 17.8 H, Plt Count 105 L, MPV 9.5, Immature Gran % (Auto) 0.700, Neut % (Auto) 83.8 H, Lymph % (Auto) 6.5 L, [place] % (Auto) 8.4, Eos % (Auto) 0.4, Baso % (Auto) 0.2, Absolute Neuts (auto) 7.7, Absolute Lymphs (auto) 0.59 L, Nucleated RBC % 0, Differential Comment SCANNED 08/07/21 04:38: Phosphorus 4.3 08/07/21 06:43: POC Glucose 143 H Micro: Microbiology 08/06/21 19:50 Sputum, Expectorated/Coughed Gram Stain - Final 08/06/21 19:50 Sputum, Expectorated/Coughed Respiratory Culture - Prelimi nary Gram negative madelin 08/06/21 21:31 Urine, Clean Catch Legionella Antigen - Final Radiography Diagnostic Testing: Radiology Impression Chest X-Ray 08/06/21 15:57 IMPRESSION: Increasing opacification of left upper lobe since prior study with small pleural effusion.. Electronically Signed: Caleb Cooper MD at 17:16 EDT , Chest CT 08/06/21 16:54 IMPRESSION: Interval worsening of large left loculated pleural effusion with associated left upper lobe lung collapse. No other changes. Electronically Signed: Adam Hargrove MD at 19:31 EDT , Rhythm Strip Rhythm Strip: Sinus Rhythm Rate: 92 Ectopy: None Physical Exam Const alert, oriented x3 and no apparent distress Constitutional Narrative: Super morbid obesity. Exam Limitations: no limitations Nutritional Appearance: morbidly obese HEENT head/scalp atraumatic and moist oral mucous membranes Head and Scalp: normocephalic Eyes PERRL, EOMs intact bilaterally and conjunctivae normal Neck no lymphadenopathy, supple and no JVD Resp Resp Narrative: mildly diminished breath sounds bibasally, no wheezes or crackles. on 7L of oxygen. GI normal to inspection, nondistended, normoactive bowel sounds, soft to palpation and non-distended GI Narrative: obese abdomen Extremity normal to inspection, full ROM and no clubbing, cyanosis or edema Peripheral Pulses: Yes pulses 2+ throughout Skin no rashes or lesions noted Neuro oriented x3, CN's II-XII intact bilaterally and moves all extremities Sensorium / Orientation: awake and alert Psych affect normal Assessment & Plan Assessment/Plan (1) Acute and chronic respiratory failure with hypoxia: (2) Acute dyspnea: (3) Hx of pleural effusion: (4) Squamous cell lung cancer: QUALIFIERS: Laterality: left Qualified Code(s): C34.92 - Malignant neoplasm of unspecified part of left bronchus or lung PLAN: #Acute on chronic hypoxic respiratory failure due to lung cancer with concern for post obstructive pneumonia * on 7L of oxyxgen; usually wears 2L at home * CXR showed complete white out of left lung * CT chest: * on IV zosyn and linezolid due to concerns about post obstructive pneumnonia * diagnostic thoracentesis ordered * pulmonology on board * #Hemoptysis: * had resolved at time of admission. * Likely due to left mainstem endobronchial lesion. * Pulmonology on board. * #Left pleural effusion: For thoracentesis today as above. #Squamous cell carcinoma of the left lung * Newly diagnosed. Still being worked up. * To have MRI and PET scan on outpatient basis with discharge. * Follows up with oncology and pulmonology * #DECLAN: * Noncompliant. Says he does not wear his CPAP machine. * Titrate oxygen to maintain saturation above 90%. Counseled on compliance. #COPD: Breathing treatments bronchodilators. Titrate oxygen to maintain saturation above 90% #Hypertension: On lisinopril and Lasix. #Type 2 diabetes mellitus: Metformin on hold. On Trity weekly on Fridays. Insulin sliding scale. Accu-Cheks ACH S. #GERD: On PPI DVT prophylaxis: SCDs. Charges/Coding Visit Charges Inpatient E&M: 93477 Subs Hosp L3
[2021-08-07 12:03] LABS: M R Staph aureus DNA By PCR Negative (Negative); Probe Check PASS; Specimen Processing Control PASS
[2021-08-07] MEDS: Insulin Lispro 100 UNIT/ML INSULN.PEN SC ×3 (12:11→20:33)
[2021-08-07 12:21] LABS: Bedside Glucose 193 mg/dL (74-106)
--- NOTE | 2021-08-07 15:12 | CASEMGMT ---
DAYTON was informed patient was in need of resources. DAYTON met with patient, introduced self and role at [facility]. Patient said he could use help with taking out trash, mopping floor etc. SW told patient about waiver program and he was open to DAYTON faxing in application for him. DAYTON told patient it takes awhile for everything to get processed so he shouldn't count on anything anytime soon. DAYTON asked patient if he had any friends of family that might be able to help him once in awhile. Patient said he does have friends he just doesn't like bothering people. SW told patient that he is going to need support as he starts his cancer treatment. Patient feels like he has adequate support. Patient has not told his family about his cancer diagnosis. Patient said they are not a close family. Patient thanked DAYTON for checking in. Sharmaine TURNER
[2021-08-07 17:51] LABS: Bedside Glucose 185 mg/dL (74-106)
[2021-08-07] MEDS: Furosemide 20 MG Tablet PO (18:31)
[2021-08-07] MEDS: 0.9% Saline Lock 10 ML Syringe IV (20:33)
[2021-08-07] MEDS: Atorvastatin Calcium 80 MG Tablet PO (20:34)
[2021-08-07 21:15] LABS: Bedside Glucose 178 mg/dL (74-106)
[2021-08-08] VITALS (14 sets, daily range): BP systolic 106–123; BP diastolic 55–65; PULSE 80–95; RESP 14–22; TEMP 36.4–36.9; O2SAT 91–98
[2021-08-08 06:45] LABS: Absolute Lymphocyte Count 0.57 X10^3/uL (0.83-4.51); Absolute Neutrophil Count 7.3 X10^3/uL (2.0-7.7); Basophil# 0.01 X10^3/uL; Basophil% 0.1 % (0-1); Eosinophil# 0.04 X10^3/uL; Eosinophils% 0.5 % (0-5); Hematocrit 42.7 % (40-54); Hemoglobin 11.8 g/dL (13.0-16.5); Lymphocyte # 0.57 X10^3/ul (0.83-4.51); Lymphocyte % 6.5 % (19-41); Mean Corp Hgb Conc 27.6 g/dL (32-36); Mean Corpuscular Hgb 24.5 pg (27.0-32.0); Mean Corpuscular Volume 88.8 fL (80-94); Mean Platelet Vol. 9.5 fl (6.2-12.0); Monocyte# 0.78 X10^3/uL; Monocyte% 8.9 % (0-10); NRBC Flagged by Analyzer 0 % (0-5); Neutrophil # 7.33 X10^3/uL (2.7-7.7); Neutrophil % 83.5 % (47-70); POSITIVE DIFFERENTIAL YES; Platelet Count 110 K/mm3 (150-450); RBC Distribution Width CV 17.8 % (11.6-14.6); RBC Distribution Width SD 56.8 fl (35.1-43.9); Red Blood Count 4.81 M/mm3 (4.6-6.2); White Blood Count 8.8 K/mm3 (4.4-11.0)
[2021-08-08 06:50] LABS: Differential Indicated SCAN CRITERIA MET
[2021-08-08 07:01] LABS: Bedside Glucose 144 mg/dL (74-106)
[2021-08-08] MEDS: Budesonide Respules 0.5 MG/2 ML AMPUL.NEB. INHALATION (07:03)
[2021-08-08] MEDS: Albuterol 2.5 MG/3 ML VIAL.NEB. INHALATION ×2 (07:03→13:12)
--- NOTE | 2021-08-08 07:06 | PCM.PN.INT ---
Assessment & Plan Assessment/Plan (1) Acute and chronic respiratory failure with hypoxia: PLAN: RECOMMENDATIONS: 1. Wean supplemental oxygen to maintain saturations at or above 90%. 2. Okay to de-escalate antimicrobials and transition to Levaquin to complete 7-day treatment course. 3. Continue bronchodilator therapy. 4. Encourage incentive spirometer use and mobilize patient as tolerated. 5. Outpatient follow-up to complete lung cancer staging, including PET and MRI brain. IMPRESSIONS: 1. Acute on chronic hypoxemic respiratory failure The patient presented to the hospital with worsening shortness of breath, hypoxemia and self-limited hemoptysis. This is undoubtedly related to his underlying malignancy with what is likely haemophilus influenza pneumonia. The patient previously had a baseline oxygen requirement of 2 L/min. Although the patient's imaging has demonstrated a loculated effusion, subsequent chest ultrasound did not demonstrate a large enough pocket of fluid amenable to thoracentesis. Accordingly, I would plan to continue supplemental oxygen to maintain saturations at or above 90%. Antimicrobials can be de-escalated to Levaquin to complete a 7-day treatment course. The patient ultimately needs to complete his staging work-up for his cancer including PET scan and MRI to facilitate treatment being initiated as quickly as possible. In addition, the patient needs to complete pulmonary function studies on an outpatient basis. In the interim, we will continue scheduled bronchodilators as ordered. 2. Newly diagnosed squamous cell carcinoma of the lung The patient will require close outpatient follow-up with oncology. He still needs to complete his staging work-up including MRI brain and PET scan. 3. Chronic tobacco dependency/suspected sleep apnea and alveolar hypoventilation secondary to obesity Complicates care, management, recovery and prognosis. The patient has never completed a sleep study, nor is he interested in utilizing any form of nocturnal Pap therapy. This note was generated with [employer] dictation software. It may contain incorrect words, spelling, and punctuation that were not noted in checking the note before signing. Subjective Subjective The patient was seen and examined at the bedside this morning. Events from the last 24 hours have been reviewed. The patient is currently afebrile, hemodynamically stable and maintaining appropriate oxygen saturations on 5 L/min via nasal cannula. Although the patient was taken for a thoracentesis yesterday, subsequent chest ultrasound did not demonstrate a sizable pocket of fluid amenable to thoracentesis. Overall, however, the patient's breathing quality has improved following admission. Objective Data Objective Data The patient's most recent lab work, culture data and imaging studies have all been personally reviewed. Prior sputum culture from July 28 demonstrated haemophilus influenza. Sputum gram stain from August 06 is positive for gram-negative rods. Vital Signs: Vital Signs Temp Pulse Resp BP Pulse Ox 97.5 F L 88 18 106/57 L 94 08/08/21 02:50 08/08/21 02:59 08/08/21 02:50 08/08/21 02:50 08/08/21 02:50 Oxygen Flow Rate (L/min) 5 Oxygen Delivery Method High Flow Weight: 156.3 kg Body Mass Index (BMI) 50.9 Intake & Output: Intake and Output for Last 24 Hours 08/06/21 08/07/21 08/08/21 23:59 23:59 23:59 Intake Total 50 / 170 2080 / 2080 290 / 290 Output Total 1575 / 1575 Balance 50 / -230 505 / 505 290 / 290 Lab / Micro Data Attestation: I reviewed the patient's lab results. Result Diagrams: 08/08/21 06:00 08/08/21 06:00 Labs: Laboratory Results - last 24 hr 08/07/21 08:00: MRSA (PCR) Negative 08/07/21 12:03: POC Glucose 193 H 08/07/21 17:44: POC Glucose 185 H 08/07/21 20:26: POC Glucose 178 H 08/08/21 06:00: WBC 8.8, RBC 4.81, Hgb 11.8 L, Hct 42.7, MCV 88.8, MCH 24.5 L, MCHC 27.6 L, RDW Std Deviation 56.8 H, RDW Coeff of Jean-Paul 17.8 H, Plt Count 110 L, MPV 9.5, Immature Gran % (Auto) 0.500, Neut % (Auto) 83.5 H, Lymph % (Auto) 6.5 L, [place] % (Auto) 8.9, Eos % (Auto) 0.5, Baso % (Auto) 0.1, Absolute Neuts (auto) 7.3, Absolute Lymphs (auto) 0.57 L, Nucleated RBC % 0 08/08/21 06:45: POC Glucose 144 H Micro: Microbiology 08/05/21 21:31 Urine, Clean Catch Streptococcus pneumoniae Antigen (M - Final 08/06/21 19:50 Sputum, Expectorated/Coughed Gram Stain - Final 08/06/21 19:50 Sputum, Expectorated/Coughed Respiratory Culture - Preliminary Gram negative madelin 08/06/21 21:31 Urine, Clean Catch Legionella Antigen - Final Radiography Diagnostic Testing: Radiology Impression Chest Ultrasound 08/06/21 17:43 IMPRESSION: Minimal left pleural effusion. Electronically Signed: Jovany Rasmussen MD at 15:18 EDT , Rhythm Strip Rhythm Strip: Sinus Rhythm Rate: 92 Ectopy: None Physical Exam Const alert and no apparent distress Constitutional Narrative: Super morbidly obese. General Appearance: cooperative HEENT normocephalic, head/scalp atraumatic and moist oral mucous membranes Eyes PERRL, EOMs intact bilaterally and conjunctivae normal Neck supple General: trachea midline Chest inspection of chest normal Resp no use of accessory muscles Effort and Inspection: able to speak in complete sentences Auscultation: diminished lung sounds; Negative for rales, rhonchi or wheezes Cardio regular rate and regular rhythm GI normal to inspection, nondistended, normoactive bowel sounds Extremity no clubbing, cyanosis or edema Skin no rashes or lesions noted Neuro CN's II-XII intact bilaterally, moves all extremities and no focal motor deficits Psych cooperative and affect normal Charges/Coding Visit Charges Inpatient E&M: 56009 Subs Hosp L2
[2021-08-08 07:08] LABS: Anion Gap -1 (5-15); BUN 8 mg/dL (7-18); BUN/Creat Ratio 13.8 RATIO (10-20); Calcium,Total 8.8 mg/dL (8.5-10.1); Chloride 88 mmol/L (98-107); Creatinine, Serum 0.58 mg/dL (0.70-1.30); EST Glomerular Filtration Rate 153 mL/min (>60); Est Glom Filt Rate - Afr Amer 185 mL/min (>60); Estimated Creatinine Clearance 140.52 ml/min; Glucose 135 mg/dL (74-106); Potassium 4.2 mmol/L (3.5-5.1); Sodium Level 131 mmol/L (136-145)
[2021-08-08 07:17] LABS: Anisocytosis 1+; Differential Comment SCANNED
[2021-08-08] MEDS: Furosemide 40 MG Tablet PO (09:20)
[2021-08-08] MEDS: Lisinopril 10 MG Tablet PO (09:21)
[2021-08-08] MEDS: Pantoprazole Sodium 20 MG Tablet PO (09:21)
[2021-08-08] MEDS: Linezolid 600 MG 600 MG/300 ML BAG 200 MG IV ×2 (10:23→21:18)
[2021-08-08] MEDS: Insulin Lispro 100 UNIT/ML INSULN.PEN SC ×2 (11:09→16:25)
[2021-08-08 11:20] LABS: Bedside Glucose 164 mg/dL (74-106)
--- NOTE | 2021-08-08 14:09 | PN.HOSP_ITS ---
Subjective Subjective Patient seen and examined. He had no complaints today and felt well. He still coughing and states he still bringing up sputum. He denies any fever or chills and review of systems otherwise negative. He is on 5 L of oxygen by nasal cannula today but states he feels that he can even be weaned down further. Objective Data Objective Data Vital Signs: Vital Signs Temp Pulse Resp BP Pulse Ox 97.9 F 95 18 116/58 L 98 08/08/21 13:53 08/08/21 13:53 08/08/21 13:53 08/08/21 13:53 08/08/21 13:53 Oxygen Flow Rate (L/min) 5 Oxygen Delivery Method High Flow Weight: 344 lb 9.32 oz Body Mass Index (BMI) 50.9 Intake & Output: Intake and Output for Last 24 Hours 08/06/21 08/07/21 08/08/21 23:59 23:59 23:59 Intake Total 50 / 170 2080 / 2080 640 / 640 Output Total 1575 / 1575 Balance 50 / -230 505 / 505 640 / 640 Lab / Micro Data Result Diagrams: 08/08/21 06:00 08/08/21 06:00 Labs: Laboratory Results - last 24 hr 08/07/21 17:44: POC Glucose 185 H 08/07/21 20:26: POC Glucose 178 H 08/08/21 06:00: WBC 8.8, RBC 4.81, Hgb 11.8 L, Hct 42.7, MCV 88.8, MCH 24.5 L, MCHC 27.6 L, RDW Std Deviation 56.8 H, RDW Coeff of Jean-Paul 17.8 H, Plt Count 110 L, MPV 9.5, Immature Gran % (Auto) 0.500, Neut % (Auto) 83.5 H, Lymph % (Auto) 6.5 L, [place] % (Auto) 8.9, Eos % (Auto) 0.5, Baso % (Auto) 0.1, Absolute Neuts (auto) 7.3, Absolute Lymphs (auto) 0.57 L, Nucleated RBC % 0, Differential Comment SCANNED, Anisocytosis 1+ 08/08/21 06:00: Sodium 131 L, Potassium 4.2, Chloride 88 L, Carbon Dioxide 44.0 H, Anion Gap -1 L, BUN 8, Creatinine 0.58 L, Estim Creat Clear Calc 140.52, Est GFR (MDRD) Af Amer 185, Est GFR (MDRD) Non-Af 153, BUN/Creatinine Ratio 13.8, Glucose 135 H, Calcium 8.8 08/08/21 06:45: POC Glucose 144 H 08/08/21 11:08: POC Glucose 164 H Micro: Microbiology 08/06/21 19:50 Sputum, Expectorated/Coughed Gram Stain - Final 08/06/21 19:50 Sputum, Expectorated/Coughed Respiratory Culture - Preliminary Gram negative madelin GNR Possible Haemophilus sp. 08/05/21 21:31 Urine, Clean Catch Streptococcus pneumoniae Antigen (M - Final 08/06/21 21:31 Urine, Clean Catch Legionella Antigen - Final Radiography Diagnostic Testing: Radiology Impression Chest Ultrasound 08/06/21 17:43 IMPRESSION: Minimal left pleural effusion. Electronically Signed: Jovany Rasmussen MD at 15:18 EDT , Rhythm Strip Rhythm Strip: Sinus Rhythm Rate: 92 Ectopy: None Physical Exam Const alert, oriented x3 and no apparent distress Constitutional Narrative: Super morbid obesity. General Appearance: cooperative Exam Limitations: no limitations Nutritional Appearance: morbidly obese HEENT normocephalic, head/scalp atraumatic and moist oral mucous membranes Head and Scalp: normocephalic Eyes PERRL, EOMs intact bilaterally and conjunctivae normal Eyes Narrative: No scleral icterus Neck no lymphadenopathy, supple and no JVD Neck Narrative: Neck is short and thick Resp normal respiratory effort and no retractions Resp Narrative: mildly diminished breath sounds bibasally, no wheezes or crackles. on 5L of oxygen. Auscultation: Negative for crackles, rales, rhonchi or wheezes Cardio regular rate, regular rhythm, S1 normal heart sound, S2 normal heart sound, no murmurs, no rub, no gallops, no clicks and no JVD GI normal to inspection, nondistended, normoactive bowel sounds, soft to palpation, non-tender and non-distended GI Narrative: obese abdomen Extremity normal to inspection, full ROM and no clubbing, cyanosis or edema Peripheral Pulses: Yes pulses 2+ throughout Skin no rashes or lesions noted, no wounds, skin turgor normal, no jaundice, no petechiae and no mottling Neuro oriented x3, CN's II-XII intact bilaterally, moves all extremities and no focal motor deficits Sensorium / Orientation: awake and alert Speech: speech normal Motor Exam: strength 5/5 throughout Psych affect normal Psych Narrative: Very pleasant, jovial, appropriately interactive Assessment & Plan Assessment/Plan (1) Acute and chronic respiratory failure with hypoxia: (2) Acute dyspnea: (3) Hx of pleural effusion: (4) Squamous cell lung cancer: QUALIFIERS: Laterality: left Qualified Code(s): C34.92 - Ma lignant neoplasm of unspecified part of left bronchus or lung PLAN: #Acute on chronic hypoxic respiratory failure due to lung cancer with concern for post obstructive pneumonia * on 5L of oxyxgen; usually wears 2L at home * CXR showed complete white out of left lung * on IV zosyn and linezolid due to concerns about post obstructive pneumonia. Feels much better today * antibitics de-escalated to levaquin, to complete a 7 day couse * diagnostic thoracentesis ordered, but chest ultrasound didnt show enough fluid for thoracenesis * pulmonology on board * #Hemoptysis: * had resolved at time of admission. * Likely due to left mainstem endobronchial lesion. * Pulmonology on board. * #Left pleural effusion: For thoracentesis today as above. #Squamous cell carcinoma of the left lung * Newly diagnosed. Still being worked up. * To have MRI and PET scan on outpatient basis with discharge. * Follows up with oncology and pulmonology * #DECLAN: * Noncompliant. Says he does not wear his CPAP machine. * Titrate oxygen to maintain saturation above 90%. Counseled on compliance. #COPD: Breathing treatments bronchodilators. Titrate oxygen to maintain saturation above 90% #Hypertension: On lisinopril and Lasix. #Type 2 diabetes mellitus: Metformin on hold. On Trulicity weekly on Fridays. Insulin sliding scale. Accu-Cheks ACH S. #GERD: On PPI DVT prophylaxis: SCDs. Disposition; anticipate discharge over next 24-48 hours Charges/Coding Visit Charges Inpatient E&M: 17144 Subs Hosp L2
[2021-08-08 16:40] LABS: Bedside Glucose 160 mg/dL (74-106)
[2021-08-08] MEDS: Furosemide 20 MG Tablet PO (17:53)
--- NOTE | 2021-08-08 20:14 | PCM.HOSP.N ---
Hospitalist Note Called by nursing staff. Patient requesting BiPAP at night while sleeping. Patient has known history of DECLAN but has been noncompliant at home and has never worn noninvasive ventilation with sleeping. Given the fact we do not have any data on what his settings will be I did put him on AVAPS mode at at bedtime for sleeping.
[2021-08-08] MEDS: Atorvastatin Calcium 80 MG Tablet PO (21:19)
[2021-08-08 22:10] LABS: Bedside Glucose 136 mg/dL (74-106)
--- NOTE | 2021-08-08 22:15 | NURSING ---
Pt took off Bipap and did not want to wear it anymore.
[2021-08-09] VITALS (7 sets, daily range): BP systolic 100–119; BP diastolic 62–75; PULSE 82–90; RESP 18–22; TEMP 36.7–37.1; O2SAT 2–93
[2021-08-09 06:22] LABS: Absolute Lymphocyte Count 0.56 X10^3/uL (0.83-4.51); Absolute Neutrophil Count 7.2 X10^3/uL (2.0-7.7); Basophil# 0.01 X10^3/uL; Basophil% 0.1 % (0-1); Eosinophil# 0.03 X10^3/uL; Eosinophils% 0.4 % (0-5); Hematocrit 41.5 % (40-54); Hemoglobin 11.6 g/dL (13.0-16.5); Lymphocyte # 0.56 X10^3/ul (0.83-4.51); Lymphocyte % 6.6 % (19-41); Mean Corpuscular Hgb 24.8 pg (27.0-32.0); Mean Corpuscular Volume 88.9 fL (80-94); Mean Platelet Vol. 9.5 fl (6.2-12.0); Monocyte# 0.64 X10^3/uL; Monocyte% 7.6 % (0-10); NRBC Flagged by Analyzer 0 % (0-5); Neutrophil # 7.18 X10^3/uL (2.7-7.7); Neutrophil % 84.8 % (47-70); POSITIVE DIFFERENTIAL YES; Platelet Count 107 K/mm3 (150-450); RBC Distribution Width SD 57.1 fl (35.1-43.9); Red Blood Count 4.67 M/mm3 (4.6-6.2); White Blood Count 8.5 K/mm3 (4.4-11.0)
[2021-08-09 06:36] LABS: Differential Indicated SCAN CRITERIA MET
[2021-08-09 06:56] LABS: Bedside Glucose 130 mg/dL (74-106)
[2021-08-09 06:59] LABS: Anion Gap 2 (5-15); BUN 8 mg/dL (7-18); BUN/Creat Ratio 16.7 RATIO (10-20); Chloride 88 mmol/L (98-107); Creatinine, Serum 0.48 mg/dL (0.70-1.30); EST Glomerular Filtration Rate 190 mL/min (>60); Est Glom Filt Rate - Afr Amer 230 mL/min (>60); Estimated Creatinine Clearance 169.79 ml/min; Glucose 132 mg/dL (74-106); Potassium 4.2 mmol/L (3.5-5.1); Sodium Level 131 mmol/L (136-145)
[2021-08-09 07:07] LABS: Differential Comment SCANNED
[2021-08-09] MEDS: Albuterol 2.5 MG/3 ML VIAL.NEB. INHALATION ×2 (07:11→13:11)
[2021-08-09] MEDS: Budesonide Respules 0.5 MG/2 ML AMPUL.NEB. INHALATION (07:11)
--- NOTE | 2021-08-09 09:52 | PCM.PN.INT ---
Assessment & Plan Assessment/Plan (1) Acute and chronic respiratory failure with hypoxia: PLAN: Plan RECOMMENDATIONS: 1.? Wean supplemental oxygen to maintain saturations at or above 90%. 2.? Transition to Levaquin to complete 7-day treatment course. 3.? Continue bronchodilator therapy. 4.? Encourage incentive spirometer use and mobilize patient as tolerated. 5.? Outpatient follow-up to complete lung cancer staging, including PET and MRI brain. IMPRESSIONS: 1.??Acute on chronic hypoxemic respiratory failure The patient presented to the hospital with worsening shortness of breath, hypoxemia and self-limited hemoptysis.? This is undoubtedly related to his underlying malignancy with what is likely haemophilus influenza pneumonia.? The patient previously had a baseline oxygen requirement of 2 L/min.? Although the patient's imaging has demonstrated a loculated effusion, subsequent chest ultrasound did not demonstrate a large enough pocket of fluid amenable to thoracentesis.? Accordingly, I would plan to continue supplemental oxygen to maintain saturations at or above 90%.? Antimicrobials can be de-escalated to Levaquin to complete a 7-day treatment course. The patient ultimately needs to complete his staging work-up for his cancer including PET scan and MRI to facilitate treatment being initiated as quickly as possible.? In addition, the patient needs to complete pulmonary function studies on an outpatient basis.? In the interim, we will continue scheduled bronchodilators as ordered. 2.??Newly diagnosed squamous cell carcinoma of the lung The patient will require close outpatient follow-up with oncology.? He still needs to complete his staging work-up including MRI brain and PET scan. 3.??Chronic tobacco dependency/suspected sleep apnea and alveolar hypoventilation secondary to obesity Complicates care, management, recovery and prognosis.? The patient has never completed a sleep study, nor is he interested in utilizing any form of nocturnal Pap therapy. This note was generated with [employer] dictation software. It may contain incorrect words, spelling, and punctuation that were not noted in checking the note before signing. Subjective Subjective The patient was seen and examined at the bedside this morning. Events from the last 24 hours have been reviewed. The patient is currently afebrile, hemodynamically stable and maintaining appropriate oxygen saturations on 4 L/min via nasal cannula. The patient attempted to utilize PAP therapy last night while sleeping, but still had a great deal of difficulty in tolerating the therapy. He is anxious to be discharged home, as he is scheduled to have an MRI brain early this evening. Objective Data Objective Data The patient's most recent lab work, culture data and imaging studies have all been personally reviewed.? Prior sputum culture from July 28 demonstrated haemophilus influenza.? Sputum gram stain from August 06 is positive for Haemophilus influenzae and Serratia. Vital Signs: Vital Signs Temp Pulse Resp BP Pulse Ox FiO2 98.8 F 82 22 H 100/62 91 35 08/09/21 07:53 08/09/21 07:53 08/09/21 07:53 08/09/21 07:53 08/09/21 07:53 08/08/21 21:51 Oxygen Flow Rate (L/min) 4 Oxygen Delivery Method Nasal Cannula Weight: 156.3 kg Body Mass Index (BMI) 50.9 Intake & Output: Intake and Output for Last 24 Hours 08/07/21 08/08/21 08/09/21 23:59 23:59 23:59 Intake Total 2080 / 2080 1710 / 1830 170 / 170 Output Total 1575 / 1575 800 / 1100 1250 / 1250 Balance 505 / 505 910 / 730 -1080 / -1080 Lab / Micro Data Attestation: I reviewed the patient's lab results. Result Diagrams: 08/09/21 05:45 08/09/21 05:45 Labs: Laboratory Results - last 24 hr 08/08/21 11:08: POC Glucose 164 H 08/08/21 16:24: POC Glucose 160 H 08/08/21 21:13: POC Glucose 136 H 08/09/21 05:45: WBC 8.5, RBC 4.67, Hgb 11.6 L, Hct 41.5, MCV 88.9, MCH 24.8 L, MCHC 28.0 L, RDW Std Deviation 57.1 H, RDW Coeff of Jean-Paul 18.0 H, Plt Count 107 L, MPV 9.5, Immature Gran % (Auto) 0.500, Neut % (Auto) 84.8 H, Lymph % (Auto) 6.6 L, [place] % (Auto) 7.6, Eos % (Auto) 0.4, Baso % (Auto) 0.1, Absolute Neuts (auto) 7.2, Absolute Lymphs (auto) 0.56 L, Nucleated RBC % 0, Differential Comment SCANNED 08/09/21 05:45: Sodium 131 L, Potassium 4.2, Chloride 88 L, Carbon Dioxide 41.0 H, Anion Gap 2 L, BUN 8, Creatinine 0.48 L, Estim Creat Clear Calc 169.79, Est GFR (MDRD) Af Amer 230, Est GFR (MDRD) Non-Af 190, BUN/Creatinine Ratio 16.7, Glucose 132 H, Calcium 9.0 08/09/21 06:50: POC Glucose 130 H Micro: Microbiology 08/06/21 19:50 Sputum, Expectorated/Coughed Gram Stain - Final 08/06/21 19:50 Sputum, Expectorated/Coughed Respiratory Culture - Preliminary Serratia marcescens GNR Possible Haemophilus sp. 08/05/21 21:31 Urine, Clean Catch Streptococcus pneumoniae Antigen (M - Final 08/06/21 21:31 Urine, Clean Catch Legionella Antigen - Final Rhythm Strip Rhythm Strip: Sinus Rhythm Rate: 92 Ectopy: None Physical Exam Const alert and no apparent distress Constitutional Narrative: Super morbidly obese. General Appearance: cooperative HEENT normocephalic, head/scalp atraumatic and moist oral mucous membranes Eyes PERRL, EOMs intact bilaterally and conjunctivae normal Neck supple General: trachea midline Chest inspection of chest normal Resp no use of accessory muscles Effort and Inspection: able to speak in complete sentences Auscultation: diminished lung sounds; Negative for rales, rhonchi or wheezes Cardio regular rate and regular rhythm GI normal to inspection, nondistended, normoactive bowel sounds Extremity no clubbing, cyanosis or edema Skin no rashes or lesions noted Neuro CN's II-XII intact bilaterally, moves all extremities and no focal motor deficits Psych cooperative and affect normal Charges/Coding Visit Charges Inpatient E&M: 43392 Subs Hosp L2
--- NOTE | 2021-08-09 10:28 | NURSING ---
spo2 94% on 4L at rest spo2 86% on 4L ambulating
[2021-08-09] MEDS: Lisinopril 10 MG Tablet PO (10:29)
[2021-08-09] MEDS: Pantoprazole Sodium 20 MG Tablet PO (10:29)
[2021-08-09] MEDS: Fluticasone 0.05% 1 SPRAY NASAL.SRY NASAL (10:30)
[2021-08-09] MEDS: Furosemide 40 MG Tablet PO (10:30)
[2021-08-09] MEDS: Linezolid 600 MG 600 MG/300 ML BAG 200 MG IV (10:34)
--- NOTE | 2021-08-09 11:45 | CASEMGMT ---
Addendum entered by Ciera Geni 08/09/21 13:29: [employer] aware that pt will need larger concentrator and pt will call [facility] [place] once home to notify about electric and new address, if needed. Marsha WHITMORE CM Original Note: Pt qualifies for 4L at rest and 8L w/ exertion. Dr. Nunez aware and states after talking to Dr. Kingsley, plan is to discharge pt home on 4L at rest and 8L w/ exertion with OP f/u. New order obtained and faxed to [facility] [place]. Call to [facility] [place] to notify that pt will need new concentrator, voice understanding. Pt states the last he knew he did not have power at home but he has somewhere he can go if the power is not on at home. CM to follow. Marsha WHITMORE CM
[2021-08-09 12:41] LABS: Bedside Glucose 159 mg/dL (74-106)
--- NOTE | 2021-08-09 12:42 | DS.PCM_ITS ---
Providers Date of Admission: 08/06/21 Date of Discharge: 08/09/21 Primary Care Physician: Dr. Milena Guevara, DO Consultations 08/06/21 17:43 Consult: Fish Grader / Pulmonary Medicine Routine Consulting Provider: Pulmonary Medicine ra[facility] [place] Reason for Consult: L lung mass with effusion/white out EMERGENT Consult: No MD Notified: Yes Date Notified: 08/06/21 Time Notified: 17:53 Method of Notification: Text Reason For Visit: ACUTE HYPOXIC RESPIRATORY FAILURLE/LARGE LUNG Diagnosis Discharge Diagnosis (1) Acute and chronic respiratory failure with hypoxia: Status: Chronic Code(s): J96.21 - Acute and chronic respiratory failure with hypoxia Medications at Discharge Home Medications albuterol sulfate 1 mg inhalation Q8H PRN PRN Shortness Of Breath 07/06/21 ammonium lactate 12 % topical cream 1 applic topical TID rash 07/06/21 atorvastatin 80 mg tablet 80 mg PO QHS cholesterol 07/06/21 fluticasone propionate 115 mcg-salmeterol 21 mcg/actuation HFA inhaler (Advair HFA) 1 puff inhalation BID breathing 07/06/21 fluticasone propionate 50 mcg/actuation nasal spray,suspension 1 spray intranasal DAILY allergies 07/06/21 furosemide 40 mg tablet 20 mg PO DINNER diuretic 07/06/21 furosemide 40 mg tablet 40 mg PO BREAKFAST diuretic 07/06/21 hydrocodone-acetaminophen 5-325mg 5mg-325mg 1 - 2 tab PO Q6H PRN PRN Pain 07/06/21 lisinopril 10 mg tablet 10 mg PO DAILY blood pressure 07/06/21 metformin 750 mg tablet,extended release 24 hr 750 mg PO DAILY diabetes 07/06/21 pantoprazole 20 mg tablet,delayed release 20 mg PO DAILY reflux 07/06/21 potassium chloride 20 mEq tablet,extended release 20 meq PO DAILY supplement 07/06/21 aspirin 325 mg tablet 325 mg PO DAILY heart health 07/12/21 magnesium oxide 420 mg tablet 420 mg PO DAILY supplement 07/12/21 semaglutide 1 mg/dose (2 mg/1.5 mL) subcutaneous pen injector 1 mg subcut FR diabetes 07/12/21 zinc 50 mg capsule 50 mg PO DAILY supplement 07/27/21 levofloxacin 750 mg tablet 750 mg PO DAILY #7 tabs 08/09/21 Hospital Course Summary of Care Provided Minutes Spent on Discharge: 45 Hospital Course: Patient is a 55 y/o male with a PMh as outlined who was admitted via the ED on 08/06/2021 with a complaint of worsening shortness of breath. He had been r ecently diagnosed with nonsmall cell lung cancer, and follows with oncology and pulmonology. He had had diagnostic bronchoscopy on 07/28/2021 and was to have outpatient MRI and PET scan for staging. He had been found to have an obstructing intrabronchial left-sided lung mass with known partial left lung collapse. He usually wore 2 L of oxygen at home but 3 days prior to admission, he started having worsening shortness of breath with intermittent hemoptysis and sputum production. Hemoptysis resolved but shortness of breath and sputum production persisted and he had to increase his oxygen up to like 6 L. On admission he was tachypneic and was saturating at 77% on 4 L of oxygen and he had to be turned up to 7 L of oxygen. Chest x-ray showed complete whiteout of the left chest which was worse than previous. He was also found to have left- sided pleural effusion and he was started on broad-spectrum antibiotics with linezolid and Zosyn for postobstructive pneumonia. Patient was also to have left-sided thoracentesis, but he wasnt found to have a large enough pocket of fluid for thoracentesis. Pulmonology was consulted. Sputum cultures grew H. influenzae. Patient was currently weaned down to 4 L of oxygen and he felt much better. However with ambulation, patient was noted to require 8 L of oxygen. Per discussion with pulmonology, his oxygen requirements was not expected to im prove as he had not yet's commence treatment for the lung cancer. It was therefore decided that patient should be discharged on 08/09/2021 to finish his outpatient staging for cancer and for treatment to be commenced. He is follow- up with his primary care doctor, pulmonology and oncology. He was discharged on p.o. Levaquin to complete a 7-day course. Patient seen and examined prior to discharge. He had no active complaints and said he felt well. He was on 4 L of oxygen at time of review. Review of systems otherwise negative. Labs and vitals reviewed. Home medication reviewed and reconciled. Physical Exam Const alert, oriented x3 and no apparent distress Constitutional Narrative: Super morbid obesity. General Appearance: cooperative and comfortable Exam Limitations: no limitations Nutritional Appearance: morbidly obese HEENT normocephalic, head/scalp atraumatic, hearing grossly normal bilaterally and moist oral mucous membranes Eyes PERRL, EOMs intact bilaterally and conjunctivae normal Eyes Narrative: No scleral icterus Neck no lymphadenopathy, supple and no JVD Neck Narrative: Neck is short and thick Resp normal respiratory effort and no retractions Resp Narrative: mildly diminished breath sounds bibasally, no wheezes or crackles. on 4L of oxygen. Auscultation: Negative for crackles, rales, rhonchi or wheezes Cardio regular rate, regular rhythm, S1 normal heart sound, S2 normal heart sound, no murmurs, no rub, no gallops, no clicks and no JVD GI normal to inspection, nondistended, normoactive bowel sounds, soft to palpation, non-tender and non-distended GI Narrative: obese abdomen Extremity normal to inspection, full ROM and no clubbing, cyanosis or edema Skin no rashes or lesions noted, no wounds, skin turgor normal, no jaundice, no petechiae and no mottling Neuro oriented x3, CN's II-XII intact bilaterally, moves all extremities and no focal motor deficits Sensorium / Orientation: awake and alert Speech: speech normal Motor Exam: strength 5/5 throughout Psych affect normal Weight / BMI Weight Weight: 344 lb 9.32 oz Body Mass Index (BMI) 50.9 ABG / Lab / Microbiology Data Result Diagrams: 08/09/21 05:45 08/09/21 05:45 Laboratory: Laboratory Results - last 24 hr 08/08/21 16:24: POC Glucose 160 H 08/08/21 21:13: POC Glucose 136 H 08/09/21 05:45: WBC 8.5, RBC 4.67, Hgb 11.6 L, Hct 41.5, MCV 88.9, MCH 24.8 L, MCHC 28.0 L, RDW Std Deviation 57.1 H, RDW Coeff of Jean-Paul 18.0 H, Plt Count 107 L, MPV 9.5, Immature Gran % (Auto) 0.500, Neut % (Auto) 84.8 H, Lymph % (Auto) 6.6 L, [place] % (Auto) 7.6, Eos % (Auto) 0.4, Baso % (Auto) 0.1, Absolute Neuts (auto) 7.2, Absolute Lymphs (auto) 0.56 L, Nucleated RBC % 0, Differential Comment SCANNED 08/09/21 05:45: Sodium 131 L, Potassium 4.2, Chloride 88 L, Carbon Dioxide 41.0 H, Anion Gap 2 L, BUN 8, Creatinine 0.48 L, Estim Creat Clear Calc 169.79, Est GFR (MDRD) Af Amer 230, Est GFR (MDRD) Non-Af 190, BUN/Creatinine Ratio 16.7, Glucose 132 H, Calcium 9.0 08/09/21 06:50: POC Glucose 130 H 08/09/21 11:55: POC Glucose 159 H Microbiology: Microbiology 08/06/21 19:50 Sputum, Expectorated/Coughed Gram Stain - Final 08/06/21 19:50 Sputum, Expectorated/Coughed Respiratory Culture - Preliminary Serratia marcescens GNR Possible Haemophilus sp. 08/05/21 21:31 Urine, Clean Catch Streptococcus pneumoniae Antigen (M - F inal 08/06/21 21:31 Urine, Clean Catch Legionella Antigen - Final D/C Instructions Discharge Diet: Low fat / Low cholesterol Discharge Activity: Return to Normal Activity Weight Bearing Status: Weight bearing as tolerated Call your doctor if you observe: Fever of 101 or Higher, Shortness of breath, Dizziness, Swelling in the ankles, Chest pain, Increased palpitations (irregular heartbeat) and Calf discomfort Meaningful Use Info Meaningful Use Diagnoses (Choose all that apply): None applicable Discharge Plan Admission Admit Date/Time: 08/06/21 16:52 Primary Reason for Your Visit: acute on chronic hypoxic respiratory failure Attending Provider: Mami Nunez Primary Care Provider: Milena Guevara Consulting Providers: Ag Correa ; Chris Kingsley ; Jamila Moreno NP ; Nannette Pritchard Instructions Patient Instructions: ED Pneumonia (Adult), Pneumonia Additional Instructions / Restrictions: use oxygen 8L of oxygen for shortness of breath. To have MRI of the brain in the late afternoon of 08/09/2021 for staging of lung cancer. Discharge Orders/Prescriptions Prescriptions: New levofloxacin 750 mg tablet 750 mg PO DAILY Qty: 7 0RF Continued aspirin 325 mg tablet 325 mg PO DAILY magnesium oxide 420 mg tablet 420 mg PO DAILY semaglutide 1 mg/dose (2 mg/1.5 mL) pen injector 1 mg subcut FR furosemide 40 mg tablet 40 mg PO BREAKFAST Label Comments: TAKE 1 TABLET BY MOUTH IN THE MORNING, TAKE 1/2 (ONE-HALF) OF A TABLET IN THE EVENING atorvastatin 80 mg tablet 80 mg PO QHS Label Comments: TAKE 1 TABLET BY MOUTH DAILY EVERY EVENING hydrocodone-acetaminophen 5-325 mg tablet 1 - 2 tab PO Q6H PRN PRN (Reason: Pain) Label Comments: TAKE 1 TO 2 TABLETS EVERY 6 HOURS NEEDED FOR PAIN pantoprazole 20 mg tablet,delayed release (DR/EC) 20 mg PO DAILY Label Comments: TAKE 1 TABLET BY MOUTH DAILY BEFORE BREAKFAST lisinopril 10 mg tablet 10 mg PO DAILY Label Comments: Take 1 tab Tablet by mouth daily ammonium lactate 12 % cream 1 applic TOPICAL TID Label Comments: APPLY TO HANDS AT LEAST THREE TIMES DAILY Rx Instructions: applie to hands fluticasone propionate 50 mcg/actuation spray,suspension 1 spray INTRANASAL DAILY Label Comments: SPRAY 1 (ONE) IN EACH NOSTRIL DAILY metformin 750 mg tablet extended release 24 hr 750 mg PO DAILY Label Comments: TAKE 1 TABLET BY MOUTH EVERY DAY Advair HFA 115-21 mcg/actuation HFA aerosol inhaler 1 puff INHALATION BID Label Comments: INHALE 1 (ONE) PUFF TWICE DAILY potassium chloride 20 mEq tablet extended release 20 meq PO DAILY Label Comments: TAKE 1 TABLET BY MOUTH DAILY furosemide 40 mg tablet 20 mg PO DINNER Label Comments: TAKE 1 TABLET BY MOUTH IN THE MORNING, TAKE 1/2 (ONE-HALF) OF A TABLET IN THE EVENING albuterol sulfate 2.5 mg /3 mL (0.083 %) solution for nebulization 1 mg inhalation Q8H PRN PRN (Reason: Shortness Of Breath) Label Comments: use 1 vial in a nebulizer every 8 hours, only as needed for wheezing/trouble breathing zinc 50 mg Capsule 50 mg PO DAILY Referrals / Follow Up: Chris Kingsley DO [STAFF PHYSICIAN] - Within 2 Weeks Milena Guevara DO [Primary Care Provider] - Within 2 Weeks Disposition Disposition (needs filled in before D/C Order can be placed): Home, Self Care Charges/Coding Visit Charges Inpatient E&M: 41173 Disch Hosp
--- NOTE | 2021-08-10 11:56 | CASEMGMT ---
Call from Yoshi at [facility] and he states pt never called [facility] once home to set up 10L concentrator for pt. Per Yoshi, he is unable to reach pt. Message left with pt and his only contact, Eleni Kaur, his mother to call this RN CM back. CM to follow. Marsha WHITMORE CM
== END 2021-08-09 15:58 | disposition home or self-care (01) | DRG 193 ==
LOC: ED 16:53 → PCU 17:05
PROVIDERS: Internal Medicine Critical Care Medicine; Admitting Provider Internal Medicine; Emergency Provider Emergency Medicine; PCP Family Medicine; Visit Provider Student in an Organized Health Care Education/Training Program
DX: J14 Pneumonia due to Hemophilus influenzae (principal); J96.21 Acute and chronic respiratory failure with hypoxia; C34.12 Malignant neoplasm of upper lobe, left bronchus or lung; I50.32 Chronic diastolic (congestive) heart failure; J44.0 Chronic obstructive pulmonary disease with (acute) lower respiratory infection; E66.2 Morbid (severe) obesity with alveolar hypoventilation; Z68.43 Body mass index [BMI] 50.0-59.9, adult; E87.1 Hypo-osmolality and hyponatremia; J90 Pleural effusion, not elsewhere classified; J98.11 Atelectasis; R04.2 Hemoptysis; I11.0 Hypertensive heart disease with heart failure; Z99.81 Dependence on supplemental oxygen; E11.9 Type 2 diabetes mellitus without complications; E78.00 Pure hypercholesterolemia, unspecified; F17.210 Nicotine dependence, cigarettes, uncomplicated; K21.9 Gastro-esophageal reflux disease without esophagitis; Z91.19 Patient's noncompliance with other medical treatment and regimen; Z79.51 Long term (current) use of inhaled steroids; Z79.82 Long term (current) use of aspirin; Z79.84 Long term (current) use of oral hypoglycemic drugs; Z79.899 Other long term (current) drug therapy
CPT/HCPCS: 36415; 71045; 71250; 76604; 80048; 80053; 82962; 83615; 83735; 84100; 84484; 85025; 85610; 87070; 87077; 87186; 87205; 87449; 87641; 93005; 94002; 94640; 94762; 97802; 99251; 99285; 99406; J2020; J7040; A4216; G0463

== ENCOUNTER → 2021-08-09 | Outpatient (CLI) | payer MEDICARE, SELFPAY ==
--- NOTE | 2021-08-09 16:01 | MRI_ITS ---
STUDY: MRI BRAIN WITHOUT CONTRAST REASON FOR EXAM: Male, 55 years old. cancer staging TECHNIQUE: Standardized multiplanar fat and water weighted pulse sequences were obtained. COMPARISON: None. FINDINGS: Normal size of the ventricles and extra-axial spaces for the patient''s age. Normal white matter tracts of the supratentorial brain. There is no evidence for recent intracranial ischemia or other cause of cytotoxic edema on diffusion weighted imaging (DWI). Normal bilateral basal ganglia. Normal thalami. There is no extra-axial fluid accumulation. Normal flow voids within the major intracranial circulation suggesting patency by spin echo criteria. Normal sella turcica, pituitary gland, infundibular stalk, optic chiasm and hypothalamus. Normal tectal plate and pineal gland. Normal midbrain, roberto and medulla. Normal cerebellum. Normal basal cisterns. Normal bilateral temporal bones. Normal bilateral internal auditory canals. No demonstrated orbital abnormality, within the constraints of a routine brain study. Opacification of the left sphenoid sinus and air-fluid level in left maxillary sinus consistent with sinusitis. Normal calvarium and skull base. Normal visualized soft tissue structures. Normal visualized upper cervical spine. MRI/Brain without Contrast IMPRESSION: Normal unenhanced MRI of the brain. Electronically Signed: Noah Francois MD at 17:27 EDT ,
== END | disposition home or self-care (01) ==
LOC: MRI 16:01
PROVIDERS: PCP Family Medicine; Visit Provider Nurse Practitioner Acute Care
DX: C34.90 Malignant neoplasm of unspecified part of unspecified bronchus or lung (principal)
CPT/HCPCS: 70551

== ENCOUNTER → 2021-08-14 | Outpatient (CLI) | payer MEDICARE, MEDICAID, SELFPAY ==
--- NOTE | 2021-08-14 12:24 | PFTCOMP ---
COMPLETE PULMONARY FUNCTION TEST INTERPRETATION Brief HPI: Patient is a 55-year-old male, currently under the care of Jamila Moreno, who presents to [facility] for complete pulmonary function tests secondary to diagnosis of COPD. Respiratory therapist reports good effort and reproducible results. Interpretation: Forced expiration spirometry shows a very severe large airways obstructive ventilatory defect with an FEV1 of 34% predicted. There is no significant bronchodilator response by strict ATS criteria. Spirograms are of good quality and plateau slowly, indicating slowly emptying areas of the lungs. The respiratory flow volume loop shows decreased expiratory flow rates at all lung volumes consistent with airway obstruction. Lung volumes by body plethysmography show a decreased total lung capacity at 4.53 L, 70% predicted. FRC and RV are elevated out of proportion. Lung volume measurements are consistent with air-trapping. Diffusion capacity by carbon monoxide is decreased at 41% predicted. The airway resistance is elevated. No previous pulmonary function tests were available for review. Impression: Irreversible very severe mixed ventilatory defect with a symmetric reduction diffusing capacity and air-trapping.
== END | disposition home or self-care (01) ==
LOC: PSN 06:44
PROVIDERS: PCP Family Medicine; Referring Provider Nurse Practitioner Acute Care; Visit Provider Nurse Practitioner Acute Care
DX: J44.9 Chronic obstructive pulmonary disease, unspecified (principal)
CPT/HCPCS: 94060; 94726; 94729

== ENCOUNTER → 2021-08-23 | Outpatient (CLI) | payer MEDICARE, SELFPAY ==
--- NOTE | 2021-08-23 16:15 | PET_ITS ---
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 Initial staging. COMPARISON EXAMINATION: CT 08/06/2021. TECHNIQUE: Following the intravenous administration of 13.03 mCi of F-18 FDG, multiplanar imaging acquisitions of the neck, chest, abdomen/pelvis to the mid thigh, obtained at 1 hour post radiopharmaceutical administration. Interpretation is with co-registeration of similar anatomic distribution of CT. Serum GLUCOSE was 108 mg/dL Findings: Normal and physiologic distribution of radioisotope identified in the expected intensity of the hepatic and splenic parenchyma, urinary tract and gastrointestinal structures. There is gross anatomic distribution of the intracranial contents. INDEX LESION SIZE SUV INTERPRETATION: 1. 6.0 x 7.1 cm mass in the central left upper lobe/lingula with abnormal FDG activity (SUV 24.1) extending to the left hilum. Volume loss/atelectasis of the lingula and left upper lobe with associated pleural fluid, as seen on prior CT. A second focal (1.4 cm) area of increased activity in the left epicardial fat is seen on image 129 series 203 with SUV 11.6. 2. There are least 3 focal lesions demonstrating increased activity. The largest lesion is the anterior right hepatic lobe measuring 1.3 x 2.0 cm (SUV 17.7 with background liver SUV measuring 4.6). CT portion of the exam: Right lung is normal. No pneumothorax. Normal heart and pericardium. Normal mediastinum. Normal hilar regions. Normal unenhanced pulmonary arteries. Normal aorta arch and descending thoracic aorta. Normal liver. There are surgical clips in the gallbladder fossa consistent with a prior cholecystectomy. The spleen is enlarged with perisplenic dilated vessels suggesting possibility of portal hypertension. Normal pancreas. Normal bilateral adrenal glands. Normal right kidney. Normal left kidney. Normal visualized stomach. Normal small intestine. There are multiple colonic diverticula consistent with diverticulosis. The appendix is visualized and appears normal. There is diffuse atherosclerotic calcification of the abdominal aorta, without a demonstrated aneurysm. Normal inferior vena cava. Normal urinary bladder. There are diffuse degenerative changes of the visualized lumbar spine. PET/PET/CT Tumor Base -Thigh Init IMPRESSION: 1. ABNORMAL EXAMINATION. Central lingular/left upper lobe mass causing bronchial obstruction/pulmonary atelectasis needs criteria for viable neoplasm. 2. At least 3 focal lesions of the liver (dominant anterior right hepatic lobe) meet criteria for viable neoplasm/hepatic metastasis. 3. 1.4 cm nodule in the left epicardial fat meet criteria for viable neoplasm, could represent adenopathy versus pleural nodule/metastasis. 4. Mild splenomegaly. Perisplenic prominent vessels could represent portal hypertension. 5. Chronic changes, as detailed above. Electronically Signed: David Gaston MD ([place]) at 16:57 EDT ,
== END | disposition home or self-care (01) ==
LOC: ONC 15:51
PROVIDERS: PCP Family Medicine; Referring Provider Nurse Practitioner Acute Care; Visit Provider Nurse Practitioner Acute Care
DX: R91.8 Other nonspecific abnormal finding of lung field (principal)
CPT/HCPCS: 78815; A9552

== ENCOUNTER 2021-08-28 13:36 | Emergency (ER) | payer MEDICARE, SELFPAY ==
[2021-08-28 13:37] VITALS: BP 158/87; PULSE 88; RESP 20; TEMP 37.2; O2SAT 91; BMI 48.7
--- NOTE | 2021-08-28 13:58 | CT_ITS ---
STUDY: CT ABDOMEN AND PELVIS WITH CONTRAST REASON FOR EXAM: Male, 55 years old. ABD PAIN, CHILLS, NAUSEA, RECENT DX OF LUNG CA, COPD, CHF, HTN, DB, MALGORZATA RADIATION DOSAGE (If Supplied By Facility): CTDIvol = ( 29.06 ) mGy, DLP = ( 1762.88 ) mGycm TECHNIQUE: Transaxial images were obtained from the dome of the diaphragm to the symphysis pubis without oral contrast. IV 100mL Isovue-370 was administered. Sagittal and coronal images were reconstructed. Individualized dose optimization techniques were used for this CT. COMPARISON: CT of abdomen and pelvis dated AUGUST 23, 2021 FINDINGS: A small partially loculated pleural effusion is seen in the left lung base. The liver is mildly cirrhotic and shrunken. Slightly coarsened appearance of the liver parenchyma with some patchy areas of hypodensity, favored to represent fatty infiltration. No visualized liver mass or ductal dilatation. A trace amount of ascites is present at the posterior inferior aspect of the right lobe of the liver. Portal vein hypertension with numerous venous varices noted. Top normal to mildly enlarged spleen. There are surgical clips in the gallbladder fossa consistent with a prior cholecystectomy. Normal spleen. Normal pancreas. Normal bilateral adrenal glands. Normal right kidney. Normal left kidney. Normal visualized stomach. Mild jejunal and proximal ileal loops are mildly gaseous and fluid distended without a zone of transition or focal narrowing, compatible with mild ileus. No free air or free fluid or bowel obstruction is seen. Normal colon. The appendix is visualized and appears normal. There is diffuse atherosclerotic calcification of the abdominal aorta, without a demonstrated aneurysm. Normal inferior vena cava. There is borderline retroperitoneal lymphadenopathy with enlarged nodes no greater than 10mm in the short axis diameter. Normal urinary bladder. Midline surgical incision tract noted. No visualized hernia is. There are diffuse degenerative changes of the visualized lumbar spine and hips. CT/Abdomen/Pelvis W IV Cont ONLY IMPRESSION: 1. Mild jejunal and proximal ileal loops are mildly gaseous and fluid distended without a zone of transition or focal narrowing, compatible with mild ileus. No free air or free fluid or bowel obstruction is seen. 2. Cirrhotic liver 3. Portal vein hypertension Electronically Signed: Gamaliel Tucker MD at 15:47 EDT ,
--- NOTE | 2021-08-28 13:59 | EDS_ITS ---
HPI History of Present Illness Chief Complaint: Abd Pain Informant: patient and spouse/S.O. Narrative Narrative: 55-year-old male presented to the emergency room with abdominal pain. Patient states symptoms began yesterday and he associates it with nausea vomiting diarrhea. She recently diagnosed with lung cancer. The patient notes that he has been on a significant amount of antibiotics recently. He notes pain in the left lower jaw from a dental extraction which a piece of bone seems to be protruding from his gumline. He has had prior cholecystectomy. He reports a normal colonoscopy in the past. No blood in stool or vomit. He notes chills but no fever. [facility] Medical History Abnormal EKG Acute and chronic respiratory failure with hypoxia Arthralgia of hand Arthritis BMI 50.0-59.9, adult Cancer Chronic back pain greater than 3 months duration COPD (chronic obstructive pulmonary disease) Diabetes Diastolic congestive heart failure Fatigue Fatty liver GERD (gastroesophageal reflux disease) High cholesterol History of CHF (congestive heart failure) History of chronic respiratory failure History of edema History of fracture of left hip History of rectal bleeding History of stress test Hx of pleural effusion Hypertension Leg cramps Neck muscle spasm Nicotine dependence, cigarettes, uncomplicated Non-insulin dependent type 2 diabetes mellitus On home oxygen therapy Osteoarthritis Polycythemia secondary to smoking Poor dentition Seasonal allergies Secondary restless legs syndrome Shortness of breath on exertion Sleep apnea, obstructive Smoker Squamous cell lung cancer Thrombocytopenia Wears glasses Home Medications albuterol sulfate 1 mg inhalation Q8H PRN PRN Shortness Of Breath 07/06/21 [History Last Taken Unknown] ammonium lactate 12 % topical cream 1 applic topical TID rash 07/06/21 [History Last Taken Unknown] atorvastatin 80 mg tablet 80 mg PO QHS cholesterol 07/06/21 [History Last Taken Unknown] fluticasone propionate 115 mcg-salmeterol 21 mcg/actuation HFA inhaler (Advair HFA) 1 puff inhalation BID breathing 07/06/21 [History Last Taken Unknown] fluticasone propionate 50 mcg/actuation nasal spray,suspension 1 spray intranasal DAILY allergies 07/06/21 [History Last Taken Unknown] furosemide 40 mg tablet 20 mg PO DINNER diuretic 07/06/21 [History Last Taken Unknown] furosemide 40 mg tablet 40 mg PO BREAKFAST diuretic 07/06/21 [History Last Taken Unknown] hydrocodone-acetaminophen 5-325mg 5mg-325mg 1 - 2 tab PO Q6H PRN PRN Pain 07/06/21 [History Last Taken Unknown] lisinopril 10 mg tablet 10 mg PO DAILY blood pressure 07/06/21 [History Last Taken Unknown] metformin 750 mg tablet,extended release 24 hr 750 mg PO DAILY diabetes 07/06/21 [History Last Taken Unknown] pantoprazole 20 mg tablet,delayed release 20 mg PO DAILY reflux 07/06/21 [History Last Taken Unknown] potassium chloride 20 mEq tablet,extended release 20 meq PO DAILY supplement 07/06/21 [History Last Taken Unknown] aspirin 325 mg tablet 325 mg PO DAILY heart health 07/12/21 [History Last Taken 07/20/21] magnesium oxide 420 mg tablet 420 mg PO DAILY supplement 07/12/21 [History Last Taken Unknown] semaglutide 1 mg/dose (2 mg/1.5 mL) subcutaneous pen injector 1 mg subcut FR diabetes 07/12/21 [History Last Taken Unknown] zinc 50 mg capsule 50 mg PO DAILY supplement 07/27/21 [History Last Taken Unknown] levofloxacin 750 mg tablet 750 mg PO DAILY #7 tabs 08/09/21 [Rx Last Taken Unknown] ondansetron 4 mg disintegrating tablet 4 mg PO Q6H PRN nausea and vomiting #20 tabs 08/28/21 [Rx Last Taken Unknown] oxycodone-acetaminophen 5 mg-325 mg tablet 1 tab PO Q6H PRN PRN pain 5 days #20 TABLETS 08/28/21 [Rx Last Taken Unknown] Allergy/AdvReac Type Severity Reaction Status Date / Time No Known Allergies Allergy Verified 08/28/21 13:39 Family History Mother Heart disease Father Diabetes Brother Heart disease Surgical History History of back surgery History of cardiac catheterization History of cholecystectomy History of surgery on lower extremity Hx laparoscopic cholecystectomy Social History Smoking Status: Current every day smoker tobacco type: cigarettes Tobacco: How many years used: 40 alcohol intake: never substance use type: does not use ROS ROS ED Constitutional Constitutional ED: Reports chills and sweats; Denies fever(s) or weight loss Eyes Eyes: Denies change in vision or diplopia ENT ENT ED: Denies ear pain, rhinorrhea or sore throat Cardiovascular Cardiovascular: Denies chest pain, orthopnea, palpitations or racing heartbeat Respiratory/Chest Respiratory/Chest: Denies cough, dyspnea or orthopnea Gastrointestinal Gastrointestinal: Reports abdominal pain, diarrhea, nausea and vomiting Genitourinary Genitourinary ED: Denies dysuria, hematuria or urinary frequency Musculoskeletal Musculoskeletal: Reports back pain; Denies arthralgias or myalgias Integumentary Denies abscess or rash Neurologic Neurologic: Denies headache(s) or weakness Psychiatric Psychiatric: Denies anxiety, depression, suicidal ideation or suicidal thoughts Endocrine Endocrinology: Denies polydipsia, polyphagia or polyuria Allergic/Immunologic Allergic/Immunologic ED: Denies mouth swelling, tongue swelling or urticaria EXAM Physical Exam Const Vital Signs: 08/28/21 13:37 Temperature 98.9 F Temperature Source Temporal Pulse Rate 88 Respiratory Rate 20 H Blood Pressure 158/87 H Blood Pressure Mean 110 Pulse Ox 91 Oxygen Delivery Method Room Air Positive well nourished, well developed and obese General Appearance ED: well developed Nutritional Appearance: obese HEENT Reports normocephalic, head/scalp atraumatic and moist mucous membranes Eyes PERRL and EOMs intact bilaterally Neck no lymphadenopathy, supple and no JVD Resp normal respiratory effort and clear to auscultation bilaterally Cardio regular rate, regular rhythm and no murmurs GI normal to inspection, nondistended, normoactive bowel sounds and non-tender Palpation: soft Back/Spine no CVA tenderness and normal ROM Extremity normal to inspection General Extremety ED: Negative for edema General Extremity: Negative for edema Neuro oriented x3 and CN's II-XII intact bilaterally Sensorium / Orientation: alert Motor Exam: strength 5/5 throughout Psych mental status grossly normal Mood & Affect: Negative for depressed or tearful Skin no rashes or lesions noted and no wounds MDM MDM MDM Narrative Medical decision making narrative: Patient's basic blood work shows a leukopenia at 3.9 platelet count of 116. Anion gap of 3 with a creatinine of 0.86. Lipase 2 3. Urinalysis is normal. Patient received IV fluids pain and nausea medications. CT of the abdomen pelvis was obtained which demonstrates a mild ileus. Patient feels significantly better after medications. He is tolerating p.o.) to have pain and nausea medications at home. Follow-up with his doctors Lab Data Attestation: I reviewed the patient's lab results. Labs: Laboratory Results - last 24 hr 08/28/21 08/28/21 08/28/21 14:05 14:05 14:35 WBC 3.9 L RBC 5.36 Hgb 12.9 L Hct 45.2 MCV 84.3 MCH 24.1 L MCHC 28.5 L RDW Std Deviation 54.3 H RDW Coeff of Jean-Paul 17.9 H Plt Count 116 L MPV 9.5 Immature Gran % (Auto) 0.300 Neut % (Auto) 74.3 H Lymph % (Auto) 18.2 L [place] % (Auto) 6.4 Eos % (Auto) 0.5 Baso % (Auto) 0.3 Absolute Neuts (auto) 2.9 Absolute Lymphs (auto) 0.71 L Nucleated RBC % 0 Sodium 129 L Potassium 5.3 H Chloride 91 L Carbon Dioxide 35.0 H Anion Gap 3 L BUN 7 Creatinine 0.86 Estim Creat Clear Calc 94.77 Est GFR (MDRD) Af Amer 118 Est GFR (MDRD) Non-Af 98 BUN/Creatinine Ratio 8.2 L Glucose 170 H Calcium 8.6 Total Bilirubin 0.50 Direct Bilirubin 0.10 AST 46 H ALT 17 Alkaline Phosphatase 90 Total Protein 7.3 Albumin 2.3 L Globulin 5.0 H Lipase 203 Urine Color Yellow Urine Clarity Sl. Cloudy Urine pH 5.0 Ur Specific [place] 1.015 Urine Protein Negative Urine Glucose (UA) Normal Urine Ketones Negative Urine Occult Blood Negative Urine Nitrite Negative Urine Bilirubin Negative Urine Urobilinogen Normal Ur Leukocyte Esterase Negative Urine RBC 0 SEEN Urine WBC 0 SEEN Ur Squamous Epith Cells 0-5 SEEN Urine Bacteria 0 SEEN Urine Mucus RARE Radiography Diagnostic Testing: Clinical Impression(s) from Imaging Studies Abdomen/Pelvis CT 08/28/21 13:58 IMPRESSION: 1. Mild jejunal and proximal ileal loops are mildly gaseous and fluid distended without a zone of transition or focal narrowing, compatible with mild ileus. No free air or free fluid or bowel obstruction is seen. 2. Cirrhotic liver 3. Portal vein hypertension Electronically Signed: Gamaliel Tucker MD at 15:47 EDT , Discharge Plan Triage Chief Complaint: Abd Pain ED Provider: Chris Jones Dx/Rx/DC Orders Clinical Impression: COVID-19, Vomiting and diarrhea, Abdominal pain Instructions: Caring for Someone Who Has COVID-19 Prescriptions: New oxycodone-acetaminophen [oxycodone-acetaminophen] 5-325 mg tablet 1 tab PO Q6H PRN PRN (Reason: pain) 5 Days Qty: 20 0RF ondansetron [ondansetron] 4 mg tablet,disintegrating 4 mg PO Q6H PRN (Reason: nausea and vomiting) Qty: 20 0RF No Action aspirin 325 mg tablet 325 mg PO DAILY magnesium oxide 420 mg tablet 420 mg PO DAILY semaglutide 1 mg/dose (2 mg/1.5 mL) pen injector 1 mg subcut FR furosemide 40 mg tablet 40 mg PO BREAKFAST Label Comments: TAKE 1 TABLET BY MOUTH IN THE MORNING, TAKE 1/2 (ONE-HALF) OF A TABLET IN THE EVENING atorvastatin 80 mg tablet 80 mg PO QHS Label Comments: TAKE 1 TABLET BY MOUTH DAILY EVERY EVENING hydrocodone-acetaminophen 5-325 mg tablet 1 - 2 tab PO Q6H PRN PRN (Reason: Pain) Label Comments: TAKE 1 TO 2 TABLETS EVERY 6 HOURS NEEDED FOR PAIN pantoprazole 20 mg tablet,delayed release (DR/EC) 20 mg PO DAILY Label Comments: TAKE 1 TABLET BY MOUTH DAILY BEFORE BREAKFAST lisinopril 10 mg tablet 10 mg PO DAILY Label Comments: Take 1 tab Tablet by mouth daily ammonium lactate 12 % cream 1 applic TOPICAL TID Label Comments: APPLY TO HANDS AT LEAST THREE TIMES DAILY Rx Instructions: applie to hands fluticasone propionate 50 mcg/actuation spray,suspension 1 spray INTRANASAL DAILY Label Comments: SPRAY 1 (ONE) IN EACH NOSTRIL DAILY metformin 750 mg tablet extended release 24 hr 750 mg PO DAILY Label Comments: TAKE 1 TABLET BY MOUTH EVERY DAY Advair HFA 115-21 mcg/actuation HFA aerosol inhaler 1 puff INHALATION BID Label Comments: INHALE 1 (ONE) PUFF TWICE DAILY potassium chloride 20 mEq tablet extended release 20 meq PO DAILY Label Comments: TAKE 1 TABLET BY MOUTH DAILY furosemide 40 mg tablet 20 mg PO DINNER Label Comments: TAKE 1 TABLET BY MOUTH IN THE MORNING, TAKE 1/2 (ONE-HALF) OF A TABLET IN THE EVENING albuterol sulfate 2.5 mg /3 mL (0.083 %) solution for nebulization 1 mg inhalation Q8H PRN PRN (Reason: Shortness Of Breath) Label Comments: use 1 vial in a nebulizer every 8 hours, only as needed for wheezing/trouble breathing zinc 50 mg Capsule 50 mg PO DAILY levofloxacin 750 mg tablet 750 mg PO DAILY Qty: 7 0RF Primary Care Provider: Milena Guevara Referrals: Milena Guevara DO [Primary Care Provider] - As Needed Disposition Disposition: Home, Self Care
[2021-08-28] MEDS: Morphine 4 MG/ML Syringe IV (14:07)
[2021-08-28] MEDS: Ondansetron 4 MG/2 ML Vial IV (14:07)
[2021-08-28] MEDS: 0.9% Normal Saline 1,000 ML 1000 ML IV (14:08)
[2021-08-28 14:10] LABS: Absolute Lymphocyte Count 0.71 X10^3/uL (0.83-4.51); Absolute Neutrophil Count 2.9 X10^3/uL (2.0-7.7); Basophil# 0.01 X10^3/uL; Basophil% 0.3 % (0-1); Eosinophil# 0.02 X10^3/uL; Eosinophils% 0.5 % (0-5); Hematocrit 45.2 % (40-54); Hemoglobin 12.9 g/dL (13.0-16.5); Lymphocyte # 0.71 X10^3/ul (0.83-4.51); Lymphocyte % 18.2 % (19-41); Mean Corp Hgb Conc 28.5 g/dL (32-36); Mean Corpuscular Hgb 24.1 pg (27.0-32.0); Mean Corpuscular Volume 84.3 fL (80-94); Mean Platelet Vol. 9.5 fl (6.2-12.0); Monocyte# 0.25 X10^3/uL; Monocyte% 6.4 % (0-10); NRBC Flagged by Analyzer 0 % (0-5); Neutrophil # 2.91 X10^3/uL (2.7-7.7); Neutrophil % 74.3 % (47-70); Platelet Count 116 K/mm3 (150-450); RBC Distribution Width CV 17.9 % (11.6-14.6); RBC Distribution Width SD 54.3 fl (35.1-43.9); Red Blood Count 5.36 M/mm3 (4.6-6.2); White Blood Count 3.9 K/mm3 (4.4-11.0)
[2021-08-28 14:27] LABS: AST(SGOT) 46 U/L (15-37); Alanine Aminotransfer ALT/SGPT 17 U/L (16-61); Albumin, Serum 2.3 g/dL (3.2-5.0); Alkaline Phosphatase 90 U/L (45-117); Anion Gap 3 (5-15); BUN 7 mg/dL (7-18); BUN/Creat Ratio 8.2 RATIO (10-20); Calcium,Total 8.6 mg/dL (8.5-10.1); Chloride 91 mmol/L (98-107); Creatinine, Serum 0.86 mg/dL (0.70-1.30); EST Glomerular Filtration Rate 98 mL/min (>60); Est Glom Filt Rate - Afr Amer 118 mL/min (>60); Estimated Creatinine Clearance 94.77 ml/min; Glucose 170 mg/dL (74-106); Lipase 203 U/L (73-393); Potassium 5.3 mmol/L (3.5-5.1); Protein, Total 7.3 g/dL (6.4-8.2); Sodium Level 129 mmol/L (136-145)
[2021-08-28 14:49] LABS: Bacteria 0 SEEN /hpf (None Seen); Red Blood Cells-Urine 0 SEEN /hpf (0-5); White Blood Cells 0 SEEN /hpf (0-5)
[2021-08-28 14:57] LABS: Color, Urine Yellow (Yellow); Glucose, Dipstick Normal (Normal); Ketone-Dipstick Negative (Negative); Leukocyte Esterase-Dipstick Negative /ul (Negative); Nitrite-Dipstick Negative (Negative); Occult Blood-Urine Negative /ul (Negative); Protein-Dipstick Negative (Negative); Specific Gravity, Urine 1.015 (1.002-1.030); Urine Bilirubin Dipstick Negative (Negative); Urine Clarity Sl. Cloudy (Clear); Urine Urobilinogen Normal (Normal)
[2021-08-28 15:03] LABS: Mucous, Urine RARE /hpf (<or=2+); Squamous Epithelial Cells - UA 0-5 SEEN /hpf (0-5)
== END 2021-08-28 16:12 | disposition home or self-care (01) ==
PROVIDERS: Emergency Provider Emergency Medicine; PCP Family Medicine; Visit Provider Emergency Medicine
DX: U07.1 COVID-19 (principal); C34.90 Malignant neoplasm of unspecified part of unspecified bronchus or lung; J44.9 Chronic obstructive pulmonary disease, unspecified; I50.32 Chronic diastolic (congestive) heart failure; I11.0 Hypertensive heart disease with heart failure; J96.11 Chronic respiratory failure with hypoxia; K56.7 Ileus, unspecified; E11.9 Type 2 diabetes mellitus without complications; E78.00 Pure hypercholesterolemia, unspecified; F17.210 Nicotine dependence, cigarettes, uncomplicated; G89.29 Other chronic pain; G25.81 Restless legs syndrome; K21.9 Gastro-esophageal reflux disease without esophagitis; M19.90 Unspecified osteoarthritis, unspecified site; Z99.81 Dependence on supplemental oxygen; Z79.899 Other long term (current) drug therapy; Z79.82 Long term (current) use of aspirin; E66.9 Obesity, unspecified; K76.0 Fatty (change of) liver, not elsewhere classified; Z79.84 Long term (current) use of oral hypoglycemic drugs
CPT/HCPCS: 74177; 80048; 80076; 81001; 83690; 85025; 87811; 96361; 96374; 96375; 99283; J7030; Q9967; A4216; J2405

== ENCOUNTER 2021-09-13 11:36 | Day surgery (SDC) | payer MEDICARE, SELFPAY ==
[2021-09-13] VITALS (9 sets, daily range): BP systolic 91–120; BP diastolic 59–82; PULSE 77–87; RESP 16–18; TEMP 36.2–36.7; O2SAT 92–97; BMI 47.5
--- NOTE | 2021-09-13 11:57 | PCM.HP.BLA ---
History and Physical Date of Admission: 09/13/21 Date of Service:? 09/12/21 MR#:[id number] Acct:[id number] Name:SHAAN CEDILLO :1965 Age/Sex:?55/M Rep #:[id number] Provider:Dr. Toña Rivas MD Location:[facility] Status:Signed Intake Vital Signs ? 09/07/2209:10 09/12/2213:35 Height 5 ft 9 in 5 ft 9 in Weight: ? 328 lb BMI ? 48.4 BP ? 119/74 Blood Pressure Location ? Rt brachial Position ? Sitting Respiration ? 16 Pulse ? 98 Pulse Source ? Monitor Temp ? 98.3 F Temp Source ? Temporal Pulse Oximetry (%) ? 94 Oxygen Delivery Method ? room air Intake Visit Reasons:?PORT PLACEMENT Chief Complaint: Port placement Finishing Area Supervisor Required: No Is patient in pain?: No Allergies No Known Allergies Allergy (Verified 09/13/21 07:51) Medications albuterol sulfate 2.5 mg/3 mL (0.083 %) solution for nebulization 1 mg inhalation Q8H PRN PRN Shortness Of Breath 07/06/21 [History Confirmed 09/13/21] atorvastatin 80 mg tablet 80 mg PO QHS cholesterol 07/06/21 [History Confirmed 09/13/21] fluticasone propionate 115 mcg-salmeterol 21 mcg/actuation HFA inhaler (Advair HFA) 1 puff inhalation BID breathing 07/06/21 [History Confirmed 09/13/21] fluticasone propionate 50 mcg/actuation nasal spray,suspension 1 spray intranasal DAILY allergies 07/06/21 [History Confirmed 09/13/21] furosemide 40 mg tablet 20 mg PO DINNER diuretic 07/06/21 [History Confirmed 09/13/21] furosemide 40 mg tablet 40 mg PO BREAKFAST diuretic 07/06/21 [History Confirmed 09/13/21] hydrocodone-acetaminophen 5-325mg 5mg-325mg 1 - 2 tab PO Q6H PRN PRN Pain 07/06/21 [History Confirmed 09/13/21] lisinopril 10 mg tablet 10 mg PO DAILY blood pressure 07/06/21 [History Confirmed 09/13/21] metformin 750 mg tablet,extended release 24 hr 750 mg PO DAILY diabetes 07/06/21 [History Confirmed 09/13/21] pantoprazole 20 mg tablet,delayed release 20 mg PO DAILY reflux 07/06/21 [History Confirmed 09/13/21] potassium chloride 20 mEq tablet,extended release 20 meq PO DAILY supplement 07/06/21 [History Confirmed 09/13/21] aspirin 325 mg tablet 325 mg PO DAILY heart health 07/12/21 [History Confirmed 09/13/21] magnesium oxide 420 mg tablet 420 mg PO DAILY supplement 07/12/21 [History Confirmed 09/13/21] semaglutide 1 mg/dose (2 mg/1.5 mL) subcutaneous pen injector 1 mg subcut FR diabetes 07/12/21 [History Confirmed 09/13/21] zinc 50 mg capsule 50 mg PO DAILY supplement 07/27/21 [History Confirmed 09/13/21] milk thistle 500 mg capsule 1,500 mg PO TID 09/06/21 [History Confirmed 09/13/21] shark cartilage 1,000 mg capsule 2,000 mg PO TID 09/06/21 [History Confirmed 09/13/21] PFSH Medical History?(Updated 09/13/21 @ 08:24 by More Wall) Abnormal EKG Acute and chronic respiratory failure with hypoxia Alcohol use Arthralgia of hand Arthritis Back pain Blister BMI 50.0-59.9, adult Cancer Chronic back pain greater than 3 months duration COPD (chronic obstructive pulmonary disease) COVID Diabetes Diastolic congestive heart failure Dietary restriction Fatigue Fatty liver Gastric reflux GERD (gastroesophageal reflux disease) High cholesterol History of CHF (congestive heart failure) History of chronic respiratory failure History of edema History of pain when walking History of rectal bleeding History of stress test Hx of fracture of lower leg Hx of pleural effusion Hypertension Injury of head and neck Leg cramps Liver mass Marijuana use Neck muscle spasm Nicotine dependence, cigarettes, uncomplicated On home oxygen therapy Osteoarthritis Polycythemia secondary to smoking Poor dentition Seasonal allergies Secondary restless legs syndrome Shortness of breath on exertion Sleep apnea, obstructive Smoker Squamous cell lung cancer Substance abuse Thrombocytopenia Wears glasses Surgical History?(Updated 09/13/21 @ 08:14 by More Wall) History of back surgery History of cardiac catheterization History of lumbar spinal fusion History of surgery on lower extremity Hx laparoscopic cholecystectomy Family History? Mother Heart diseaseFather DiabetesBrother Heart disease Social History? Smoking Status:? Current every day smoker tobacco type: cigarettes Tobacco: How many years used:? 40 alcohol intake:? never substance use type:? does not use HPI HPI HPI: SHAAN WHITAKER, is a 55 M who presents to the office today for for port insertion due to squamous cell lung cancer.? Patient is starting his treatment on September 21. ROS General General: Yes weight change; No appetite, fatigue, colon cancer, breast cancer or weakness Additional Details: Weigh loss 30 pounds HEENT HEENT: No difficulty swallowing, eye injury, eye surgery, swollen glands or hoarseness Endo Endocrine: Yes diabetes mellitus; No thyroid disease, thyroid cancer, Hair loss, heat intolerance or cold intolerance Skin Skin: No rash or changing moles Breast Breast: No left breast lump, right breast lump, nipple discharge, breast pain, abnormal mammogram, abnormal US or breast enlargement Musc Musculoskeletal: Yes back problems and arthritis; No rheumatoid arthritis, gout or joint pain Cardio Cardiovascular: No murmur, pacemaker, heart disease, atrial fibrillation, high blood pressure, heart attack, heart stent, palpitations, shortness of breat with exertion or chest pain Psych Psychiatric: Yes depression; No anxiety or hearing voices Resp Respiratory: Yes shortness of breath, No sleep apnea, No cough, Yes COPD, No asthma, No emphysema and No wheezing Gastro Gastrointestinal: No abdominal pain, No nausea or vomiting, No diarrhea, No constipation, No blood in stool, No acid reflux, No hemorrhoids, No ulcers, No gallbladder problem and No black,tarry stools Tony Hematologic: No blood thinners, No blood disorders, No bleeding, No anemia and No blood clots Additional Details: ASA 81mg Neuro Neurologic: No system reviewed and no additional complaints, except as documented, No as per HPI, No abnormal gait, No abnormal hearing, No abnormal movements, No abnormal speech, No behavioral changes, No burning sensations, No confusion, No convulsions, No disequilibrium, No dizziness, No localized weakness, No frequent falls, No headache(s), No lack of coordination, No loss of vision, No memory loss, No numbness, No other visual disturbances, No radicular pain, No restless legs, No sensory deficit, No syncope, No tingling, No tremor(s), No weakness and No other Exam Const General: cooperative, comfortable and no acute distress Nutritional Appearance: obese Neck Neck: normal visual inspection Chest Other: Palpation of bilateral upper chest normal. Resp Effort & Inspection: normal respiratory effort Cardio Rate: regular rate GI Inspection: non-distended Palpation: soft and nontender Skin General: no rashes or lesions noted Neuro General: patient oriented x3 Psych Affect: normal affect COVID (Procedure Consent) Procedure Criteria Procedure Criteria: Yes Elective The surgeon/proceduralist and patient have discussed in detail the risk of exposure to and/or potential harm posed by the COVID-19 virus with having a surgery/procedure at this time versus the risk of? delaying the surgery/procedure. It is not possible to know either the risk of delaying the surgery or procedure or chance of getting an infection with perfect accuracy, but a joint decision was made between the patient and the surgeon/proceduralist ?to proceed at this time with the scheduled surgery/procedure as indicated on the consent form. Assessment and Plan Assessment and Plan (1) Encounter for insertion of venous access port: ?Status:?Acute (2) Squamous cell lung cancer: ?Status:?Acute ?Qualifiers: ?Laterality:?left? Qualified Code(s):?C34.92 - Malignant neoplasm of unspecified part of left bronchus or lung ?Comment: Left lung cancer-squamous cell type with L lung partial collapse and Left pleural effusion. ?PET/CT on 08/23/2021 shows Hypermetabolic activities in L lung, L pleural nodule, 3 liver lesions, multiple bony lesions Ribs, vertebrae. MRI brain 08/09/2021 normal. Discussed NSCLC squamous cell type stage IV(cT4 cN0 M1b) Liver and ? bones. Discussed disease status, treatment with Chemotherapy and immunotherapy, Prognosis is poor but depends on response to chemotherapy. Plan I have discussed above with the patient- Port-a-Cath placement.? Right IJ, possible left Patient has been counseled as to the risks/benefits of the procedure. I have explained the risks of the surgery, including but not limited to: infection, bleeding, injury to any blood vessels/nerves, injury to lungs (such as pneumothorax or hemothorax and need for chest tube), not having any access, nonfunctioning of port due to thrombosis, infection of port, etc.? the patient understands and agrees to proceed. I have answered all the patient's questions to the patient?s satisfaction and the patient has no further questions. Toña Rivas M.D. Pager: [phone] [facility] [address] [place] [address] [address] [place] [address] Office: [phone] Coding Level of Care Code Off vis,new,level 3 Diagnoses Encounter for insertion of venous access port? Z45.2 Squamous cell lung cancer? C34.92 ? ? ? Laterality: left 09/13/21 0848 <Electronically signed by Toña Rivas MD> Date Toña Rivas MD
[2021-09-13] MEDS: Lactated Ringers 1,000 ML 15 ML IV (12:00)
[2021-09-13] MEDS: Bupivacaine 0.25% 30 ML Vial (14:25)
[2021-09-13] MEDS: Lidocaine 1% /Epi 1:100 (20ml) 20 ML Vial (14:25)
--- NOTE | 2021-09-13 14:57 | PCM.OPRPT ---
Report of Operation Date of Procedure: 09/13/21 Pre-Operative Diagnosis: Z45.2, squamous cell lung cancer Post-Operative Diagnosis: Same Surgery/Procedure Performed:: 1. Insertion of right IJ Port-A-Cath, 2. Use of fluoroscopy, 3. Use of ultrasound Surgeon: Toña Rivas Type of Anesthesia: Local MAC Anesthesiologist: Larry Garza Special Medications: Ancef 3 g IV x1 Specimen's removed: None Estimated Blood Loss (mL): < 10 cc Description of Procedure: After informed consent was given, the patient was brought to the operating room and placed in the supine position. Appropriate time out protocol was followed. Patient was then given IV conscious sedation for anesthesia. The patient's right upper chest and neck were then prepped with a surgical skin preparation and sterile surgical drapes were placed. After proper landmarks were ascertained, the skin at the upper right chest area was then infiltrated with 1:1 mixture of 1% lidocaine with epinephrine and 0.25% marcaine. A needle trocar was then inserted into the right internal jugular vein with ultrasound guidance-multiple vessels were viewed with u/s and the right IJ was chosen-- and there was good aspiration of venous blood. A wire was then threaded into the needle trocar and this was visualized under fluoroscopy to ensure that the wire was in the superior vena cava. Once this was done, then the needle trocar was removed. A small skin soniya was made with an 11 blade knife at the wire entrance site. The dilator with the introducer sheath attached was then placed over the wire into the right internal jugular vein via the Seldinger technique and this was visualized under fluoroscopy. The dilator and sheath were in proper position as visualized by fluoroscopy. A subcutaneous pocket was then created caudad to the catheter insertion site. A transverse skin incision was made after the skin and subcutaneous tissues were infiltrated with local anesthetic. Blunt dissection was then used to create a space large enough for placement of the subcutaneous port. The catheter was then tunneled into the subcutaneous pocket. The wire and dilator were then removed. The catheter was then threaded into the introducer sheath and was positioned with its tip at the junction of the superior vena cava and the right atrium as visualized under fluoroscopy. The excess catheter was transected. The catheter was then attached to the subcutaneous port using manufacturers guidelines. The catheter was flushed with a heparin saline mixture prior to placement. Hemostasis was carefully controlled with electrocautery. The port was sutured to the subcutaneous fascia using 2-0 Vicryl suture at two sites. The port was then placed in the subcutaneous pocket. The incision were reapproximated with interrupted subdermal 3-0 vicryl sutures. The skin was reapproximated with 3-0 nylon suture in a interrupted fashion. Steristrips were used for reinforcement of the skin closure at IJ insertion site and a sterile opsite dressings were applied. The patient tolerated the procedure well. Grafts/Implants Used: Bard PowerPort isp M.R.I. 6Fr Lot [id number] Complications none
--- NOTE | 2021-09-13 15:01 | DCINST_ITS ---
Discharge Instructions Procedure Port-A-Cath Diet Discharge Diet: Light diet - advance as tolerated Activity May shower in (days): 5 (Keep port site clean and dry x5 days. Neck incision okay to get wet after 1 day. Okay to lower shower and upper sponge bath. OR okay to taper off port site with a Ziploc bag to shower) Lifting Restrictions: No lifting > 15 pounds for 3 days with the arm on the side of the port Dressing / Incision Call your doctor if your incision/area has: Continuous Slow Oozing, Sudden Increased Bleeding, Increased Pain/ Swelling, Increased Redness, Foul Smelling Discharge and Swelling at the incision site Call your doctor if you observe: Fever of 101 or Higher Change Dressing in: 2 days Follow Up Care Please Follow Up With: Toña Rivas MD When: In 10 days for permanent suture removal?call office for appointment Test Results: Test results from this visit will be discussed in further detail at your follow- up appointment, if applicable. Discharge Plan Admission Attending Provider: Toña Rivas Primary Care Provider: Milena Guevara Discharge Orders/Prescriptions Prescriptions: Continued aspirin 325 mg tablet 325 mg PO DAILY magnesium oxide 420 mg tablet 420 mg PO DAILY semaglutide 1 mg/dose (2 mg/1.5 mL) pen injector 1 mg subcut FR milk thistle 500 mg capsule 1,500 mg PO TID Rx Instructions: give with meal/snack shark cartilage 1,000 mg capsule 2,000 mg PO TID furosemide 40 mg tablet 40 mg PO BREAKFAST Label Comments: TAKE 1 TABLET BY MOUTH IN THE MORNING, TAKE 1/2 (ONE-HALF) OF A TABLET IN THE EVENING atorvastatin 80 mg tablet 80 mg PO QHS Label Comments: TAKE 1 TABLET BY MOUTH DAILY EVERY EVENING hydrocodone-acetaminophen 5-325 mg tablet 1 - 2 tab PO Q6H PRN PRN (Reason: Pain) Label Comments: TAKE 1 TO 2 TABLETS EVERY 6 HOURS NEEDED FOR PAIN pantoprazole 20 mg tablet,delayed release (DR/EC) 20 mg PO DAILY Label Comments: TAKE 1 TABLET BY MOUTH DAILY BEFORE BREAKFAST lisinopril 10 mg tablet 10 mg PO DAILY Label Comments: Take 1 tab Tablet by mouth daily fluticasone propionate 50 mcg/actuation spray,suspension 1 spray INTRANASAL DAILY Label Comments: SPRAY 1 (ONE) IN EACH NOSTRIL DAILY metformin 750 mg tablet extended release 24 hr 750 mg PO DAILY Label Comments: TAKE 1 TABLET BY MOUTH EVERY DAY Advair HFA 115-21 mcg/actuation HFA aerosol inhaler 1 puff INHALATION BID Label Comments: INHALE 1 (ONE) PUFF TWICE DAILY potassium chloride 20 mEq tablet extended release 20 meq PO DAILY Label Comments: TAKE 1 TABLET BY MOUTH DAILY furosemide 40 mg tablet 20 mg PO DINNER Label Comments: TAKE 1 TABLET BY MOUTH IN THE MORNING, TAKE 1/2 (ONE-HALF) OF A TABLET IN THE EVENING albuterol sulfate 2.5 mg /3 mL (0.083 %) solution for nebulization 1 mg inhalation Q8H PRN PRN (Reason: Shortness Of Breath) Label Comments: use 1 vial in a nebulizer every 8 hours, only as needed for wheezing/trouble breathing zinc 50 mg Capsule 50 mg PO DAILY Referrals / Follow Up: Milena Guevara DO [Primary Care Provider] - Disposition Disposition (needs filled in before D/C Order can be placed): Home, Self Care
--- NOTE | 2021-09-13 15:15 | RAD_ITS ---
STUDY: X-RAY CHEST REASON FOR EXAM: Male, 55 years old. Port -- pacu TECHNIQUE: Single AP portable view of the chest. COMPARISON: Comparison is made with prior study dated 08/06/2021. FINDINGS: EKG electrodes are seen. A right-sided portacatheter is seen with the tip in the superior vena cava. Once again, there is opacification of the left hemithorax. Pleural thickening. Hyperexpansion of the right lung. Normal size heart. Normal mediastinum and jonathon. Normal visualized pulmonary arteries. Normal visualized aortic arch and descending thoracic aorta. There are degenerative changes of the visualized thoracic spine. Normal visualized ribs, clavicles, and shoulders. There is no demonstrated abnormality of the visualized soft tissue structures of the upper abdomen. RAD/CXR for Line Placement IMPRESSION: Stable opacification of the left hemithorax. A right-sided portacatheter is in situ and the tip is in the midportion of the superior vena cava. Electronically Signed: Jovany Rasmussen MD at 15:36 EDT ,
[2021-09-13 16:21] LABS: Bedside Glucose 104 mg/dL (74-106)
== END 2021-09-13 16:41 | disposition home or self-care (01) ==
LOC: SDC 11:37 → AC 11:39
PROVIDERS: PCP Family Medicine; Referring Provider Surgery; Visit Provider Surgery
PROC: (CPT 36561; principal; 2021-09-13 13:15)
DX: Z45.2 Encounter for adjustment and management of vascular access device (principal); C34.90 Malignant neoplasm of unspecified part of unspecified bronchus or lung; J44.9 Chronic obstructive pulmonary disease, unspecified; I50.32 Chronic diastolic (congestive) heart failure; I11.0 Hypertensive heart disease with heart failure; J96.11 Chronic respiratory failure with hypoxia; E11.9 Type 2 diabetes mellitus without complications; F17.210 Nicotine dependence, cigarettes, uncomplicated; Z86.16 Personal history of COVID-19; K76.0 Fatty (change of) liver, not elsewhere classified; K21.9 Gastro-esophageal reflux disease without esophagitis; E78.00 Pure hypercholesterolemia, unspecified; G25.81 Restless legs syndrome; G47.33 Obstructive sleep apnea (adult) (pediatric); Z99.81 Dependence on supplemental oxygen; Z79.84 Long term (current) use of oral hypoglycemic drugs; Z79.899 Other long term (current) drug therapy; Z79.82 Long term (current) use of aspirin
CPT/HCPCS: 36561; 00532; 71045; 77001; 82962; J7120; J2405

== ENCOUNTER → 2021-09-14 | Outpatient (CLI) | payer MEDICARE, SELFPAY ==
--- NOTE | 2021-09-14 08:53 | NM_ITS ---
CLINICAL: Male, 55 years old. Evaluate disease extent NSCLC, pre-treatment WHOLE BODY NUCLEAR BONE SCAN TECHNIQUE: Following the IV administration of 27.4 mCi of Tc MDP, whole body bone imaging was performed with a gamma camera following a three hour delay. COMPARISON STUDIES : NM - None. CR - Not available for review at this time. CT - Not available for review at this time. MR - Not available for review at this time. US - Not available for review at this time. FINDINGS: Focal increased uptake is seen in the midportion of the left tibia. Correlation with the radiographs of the left tibia is recommended. Increased uptake is also seen in the left lower mandible. This may be related to dental pathology. Correlation with the x-rays of the mandible recommended. Mild increased uptake at the level of both knee joints suggestive of degenerative change. NM/Bone Scan Whole Body IMPRESSION: Focal increased uptake in the midportion of the left tibia as well as in the inferior aspect of the left mandible. Correlation with radiographs recommended. Electronically Signed: Jovany Rasmussen MD at 12:47 EDT ,
== END | disposition home or self-care (01) ==
LOC: NM 08:52
PROVIDERS: PCP Family Medicine; Referring Provider Internal Medicine Medical Oncology; Visit Provider Internal Medicine Medical Oncology
DX: C34.90 Malignant neoplasm of unspecified part of unspecified bronchus or lung (principal)
CPT/HCPCS: 78306; A9503

== ENCOUNTER → 2021-11-14 | Outpatient (CLI) | payer MEDICARE, SELFPAY ==
--- NOTE | 2021-11-14 12:55 | CT_ITS ---
INDICATION: ASSESS TREATMENT RESPONSE-IV ONLY EXAMINATION: CT CHEST, ABDOMEN AND PELVIS WITH CONTRAST - CT Chest Abdomen And Pelvis W/ Contrast Injection TECHNIQUE: Helically acquired images were obtained of the chest, abdomen, and pelvis following IV contrast. CTA protocol with 3D reformats were performed. A radiation dose optimization technique was used for this scan. IV Contrast dosage and agent: 100 mL of ISOVUE 300. Oral contrast: None. COMPARISON: CT scan of the chest obtained on 08/06/2021, CT scan of the abdomen and pelvis obtained on 08/28/2021 and PET scan obtained on 08/23/2021. FINDINGS: Port visualized in the right chest with catheter tip in the SVC. ----Chest: LUNGS, PLEURA AND LARGE AIRWAYS: There has been significant reduction in size of the previously visualized left hemithorax mass, left pleural fluid also demonstrates decrease in comparison to the prior study. Left hilar mass visualized extending surrounding the distal left main bronchus and extending predominantly surrounding the left upper and middle lung bronchi with partial compression visualized best seen on axial series 2 image 63 and sagittal series 602 image 262 measuring 3.1 x 2.2 x 5.4 cm prominent interstitial thickening with extension to the pleural surfaces visualized on axial series 2 image 63 and on sagittal series 602 image 287, on coronal series 601 image 161 there is a thick lateral wall pleural component visualized most likely resulting from interstitial extension, this is also visualized on sagittal series 602 image 297 measuring 2.1 x 4.1 cm. No irregularity in the underlying rib, no cortical disruption no evidence of cortical thickening, sclerotic or lytic lesion seen. Focal soft tissue density visualized along the pericardial fat pad along the inferomedial aspect of the left upper lobe seen on axial series 2 image 87 measuring 1.9 x 0.6 cm, this is also visualized on sagittal series 602 image 279 and coronal series 601 image 118, note is made that this at this location there was a focal area of increased metabolic activity on the PET scan as was visualized on CT image 126 and had 134 on the study obtained on 08/23/2021.. Circumferential wall thickening also visualized surrounding the left lower lobe bronchus on axial series 6 image 69 but no evidence of bronchial compression visualized in the left lower lobe. Subtle pleural soft tissue density visualized along the inferior lateral aspect of the left lower lobe seen on axial series 6 image 100 measuring 2.5 cm. Mild thickening of the superior medial aspect of the left pleural fissure visualized on axial series 6 image 36. No evidence of pneumothorax or pleural effusion. The right hemithorax demonstrates no evidence of parenchymal or pleural-based lung masses. THYROID: No thyroid lesions. HEART AND PERICARDIUM: Heart size is normal. No pericardial effusion. VESSELS: Thoracic aorta is not dilated. No aortic dissection. No obvious central pulmonary embolism although this study was not performed with the pulmonary embolism protocol. MEDIASTINUM AND RIYA: A left hilar lymph node is visualized on axial series 2 image 57 measuring 1.1 cm. This was obscured by the pleural fluid on the prior study. Left prevascular lymph nodes visualized on axial series 2 image 51 largest of which measures 0.6 cm, these demonstrate slight decrease in size in comparison to the prior study where they were visualized on axial CT image 40 06/26/1931 largest of which had measured 0.8 cm. Esophagus is unremarkable. No hiatal hernia. BONES: No suspicious lytic or blastic abnormality. ----Abdomen/Pelvis: LIVER: The liver demonstrates heterogeneous attenuation, no areas of abnormal enhancement visualized. A focal area of low attenuation is visualized in the inferolateral aspect of the right lobe of the liver measuring 1.6 x 1.2 cm, this correlates with an area of increased metabolic activity that was visualized on the CT PET scan obtained on 08/23/[address] image 164, PET image was 74. A second area of low attenuation is visualized along the posterior lateral aspect of the portal vein is visualized on axial series 3 image 37, coronal series 604 image 66 and sagittal series 605 image 55 measuring 1.8 x 1.3 cm, this correlates with a previously visualized area of increased metabolic activity within the liver seen on the prior PET scan. GALLBLADDER AND BILIARY TREE: Surgical clips visualized in the gallbladder fossa. No intra- or extrahepatic biliary ductal dilation. PANCREAS: No focal cystic or solid mass. SPLEEN: Normal size without focal cystic or solid mass. 2.0 cm well-circumscribed size of a low-attenuation mass visualized in the splenic hilum seen on axial series 3 image 38 suggestive of a splenule. ADRENAL GLANDS: No nodules. KIDNEYS AND URETERS: Normal renal size and position. No hydronephrosis. PERITONEUM: No ascites or free air. No other fluid collection. BOWEL: No evidence of acute appendicitis. No stomach or bowel distension. No focal inflammatory change. LYMPH NODES: Subtle scattered para-aortic and mesenteric lymph nodes are visualized. VESSELS: Aorta is non-dilated. Prominent vessels visualized in the left upper quadrant seen to communicate with the splenic artery and the periperirenal vessels and the left paravertebral vessels best visualized on coronal series 604 image 77 isn''t optimally evaluated on this study. The left ovarian vessels is unremarkable in size. URINARY BLADDER: Thickening of the wall of the urinary bladder is visualized but no evidence of masses is seen. REPRODUCTIVE ORGANS: No pelvic masses. Subtle calcifications visualized within the prostate gland. ABDOMINAL WALL: No discrete abdominal or pelvic wall hernia. BONES: No lytic or blastic abnormality. Extensive degenerative changes visualized in the lumbar spine with severe narrowing of the neuroforamina visualized at multiple levels most prominent at L3-L4 and L5-S1 demonstrates extent L4-L5. CT/CT Chest, Abd, Pel w/Contrast IMPRESSION: Left perihilar mass with interstitial extension. Status post resection of the previously visualized large mass seen at this location. Pleural-based soft tissue extension, this was not optimally evaluated on the prior study.. Pleural-based densities. Subtle scattered para-aortic and mesenteric lymph nodes are visualized. Prominent vessels in the left upper quadrant. Focal areas of low attenuation visualized within the right lobe of the liver that correlate with the location of the previously visualized areas of increased metabolic activity. Electronically Signed: Fredi Santoro MD at 10:37 EDT ,
[2021-11-14] MEDS: 0.9% Saline Lock 10 ML Syringe IV (13:18)
== END | disposition home or self-care (01) ==
LOC: CT 12:51
PROVIDERS: PCP Family Medicine; Referring Provider Internal Medicine Medical Oncology; Visit Provider Internal Medicine Medical Oncology
DX: C34.12 Malignant neoplasm of upper lobe, left bronchus or lung (principal)
CPT/HCPCS: 71260; 74177; Q9967; A4216

== ENCOUNTER → 2022-01-31 | Outpatient (CLI) | payer MEDICARE, SELFPAY | END | disposition home or self-care (01) | LOC: MRI 07:36 | PROVIDERS: PCP Family Medicine; Referring Provider Nurse Practitioner Family; Visit Provider Nurse Practitioner Family | DX: R26.89 Other abnormalities of gait and mobility (principal); C34.90 Malignant neoplasm of unspecified part of unspecified bronchus or lung; R20.0 Anesthesia of skin ==

== ENCOUNTER 2022-02-28 20:01 | Inpatient (IN) | payer MEDICARE, SELFPAY ==
[2022-02-28] VITALS (14 sets, daily range): BP systolic 64–165; BP diastolic 29–155; PULSE 74–95; RESP 15–32; TEMP 36.8–38.6; O2SAT 84–100; BMI 49.9
--- NOTE | 2022-02-28 20:26 | EKG12_ITS ---
Test Reason : DYSRHYTHMIA Blood Pressure : / mmHG Vent. Rate : 093 BPM Atrial Rate : 093 BPM P-R Int : 176 ms QRS Dur : 106 ms QT Int : 468 ms P-R-T Axes : 049 030 -33 degrees QTc Int : 581 ms Normal sinus rhythm Low voltage QRS T wave abnormality, consider anterior ischemia Prolonged QT Abnormal ECG Confirmed by HOWARD TILLEY, MANOJ ([id number]), publications editor DEBORAH KWON ([id number]) on 03/02/2022 6:36:02 AM Referred By: ERICA Confirmed By:SASCHA LAWRENCE MD
[2022-02-28] MEDS: 0.9% Normal Saline 1,000 ML 999 ML IV ×4 (20:30→23:18)
--- NOTE | 2022-02-28 20:35 | EX.ED.DYSGE1 ---
HPI History of Present Illness Chief Complaint: Weakness Informant: patient and EMS Narrative Narrative: Patient presents via EMS secondary to shortness of breath and low blood pressure. Patient apparently lives alone. Family members have not been able to get in touch with him recently and went to check on him. He was lying in bed and weak. Patient states he got sick about a week ago. He has not been eating and drinking. He has a history of lung cancer with mets to the liver. He has been undergoing palliative chemotherapy. [facility] Medical History Abnormal EKG Acute and chronic respiratory failure with hypoxia Alcohol use Arthralgia of hand Arthritis Back pain Bilateral hand numbness Blister BMI 50.0-59.9, adult Cancer Cancer, metastatic to liver Chronic back pain greater than 3 months duration CINV (chemotherapy-induced nausea and vomiting) COPD (chronic obstructive pulmonary disease) COVID Diabetes Diastolic congestive heart failure Dietary restriction Encounter for chemotherapy management Encounter for education Fatigue Fatty liver Gastric reflux GERD (gastroesophageal reflux disease) High cholesterol History of CHF (congestive heart failure) History of chronic respiratory failure History of edema History of pain when walking History of rectal bleeding History of stress test Hx of fracture of lower leg Hx of pleural effusion Hypertension Imbalance Injury of head and neck Leg cramps Liver mass Marijuana use Neck muscle spasm Nicotine dependence, cigarettes, uncomplicated On home oxygen therapy Osteoarthritis Polycythemia secondary to smoking Poor dentition Port-A-Cath in place Pruritus Seasonal allergies Secondary restless legs syndrome Shortness of breath on exertion Sleep apnea, obstructive Smoker Squamous cell lung cancer Substance abuse Thrombocytopenia Wears glasses Home Medications albuterol sulfate 2.5 mg/3 mL (0.083 %) solution for nebulization 1 mg inhalation Q8H PRN PRN Shortness Of Breath 07/06/21 [History Last Taken Unknown] atorvastatin 80 mg tablet 80 mg PO QHS cholesterol 07/06/21 [History Last Taken Unknown] fluticasone propionate 115 mcg-salmeterol 21 mcg/actuation HFA inhaler (Advair HFA) 1 puff inhalation BID breathing 07/06/21 [History Last Taken Unknown] fluticasone propionate 50 mcg/actuation nasal spray,suspension 1 spray intranasal DAILY allergies 07/06/21 [History Last Taken Unknown] furosemide 40 mg tablet 20 mg PO DINNER diuretic 07/06/21 [History Last Taken Unknown] furosemide 40 mg tablet 40 mg PO BREAKFAST diuretic 07/06/21 [History Last Taken Unknown] lisinopril 10 mg tablet 10 mg PO DAILY blood pressure 07/06/21 [History Last Taken Unknown] metformin 750 mg tablet,extended release 24 hr 750 mg PO DAILY diabetes 07/06/21 [History Last Taken Unknown] pantoprazole 20 mg tablet,delayed release 20 mg PO DAILY reflux 07/06/21 [History Last Taken Unknown] potassium chloride 20 mEq tablet,extended release 20 meq PO DAILY supplement 07/06/21 [History Last Taken Unknown] semaglutide 1 mg/dose (2 mg/1.5 mL) subcutaneous pen injector (Ozempic) 1 mg subcut FR diabetes 07/12/21 [History Last Taken Unknown] milk thistle 500 mg capsule 1,500 mg PO TID 09/06/21 [History Last Taken Unknown] lidocaine-prilocaine 2.5 %-2.5 % topical cream 1 applic topical ONCE PRN port access 30 days #30 grams 09/14/21 [Rx Last Taken Unknown] ondansetron 8 mg disintegrating tablet 8 mg PO Q8H PRN nausea and vomiting #30 tabs 09/14/21 [Rx Last Taken Unknown] prochlorperazine maleate 10 mg tablet 10 mg PO Q6H PRN nausea and vomiting #30 tabs 09/14/21 [Rx Last Taken Unknown] MAGIC MOUTH WASH (BMX) 180 mL suspension 15 ml PO .Q6HR #180 mL 10/05/21 [Rx Last Taken Unknown] Allergy/AdvReac Type Severity Reaction Status Date / Time No Known Allergies Allergy Verified 02/01/22 09:28 Family History Mother Heart disease Father Diabetes Brother Heart disease Surgical History History of back surgery History of cardiac catheterization History of lumbar spinal fusion History of surgery on lower extremity Hx laparoscopic cholecystectomy Social History Smoking Status: Current every day smoker tobacco type: cigarettes Tobacco: How many years used: 40 alcohol intake: never substance use type: does not use ROS ROS ED Review of Systems ROS Unobtainable: due to mental condition Respiratory/Chest Respiratory/Chest: Reports cough and dyspnea Neurologic Neurologic: Reports weakness EXAM Physical Exam Narrative Exam Narrative: Patient sitting upright in bed looks about the room. Slow to answer questions. Const Vital Signs: 02/28/22 20:03 02/28/22 20:07 02/28/22 20:07 Temperature 101.5 F H 100.4 F H 100.4 F H Temperature Source Axillary Temporal Oral Pulse Rate 74 91 91 Respiratory Rate 18 18 28 H Respiratory Effort Respiratory Depth Respiratory Pattern Blood Pressure 81/38 L 81/38 L 81/38 L Blood Pressure Mean 52 52 52 Pulse Ox 99 84 100 Oxygen Delivery Method Room Air Room Air Non-Rebreather Oxygen Flow Rate (L/min) 15 02/28/22 20:26 02/28/22 20:37 02/28/22 20:15 Temperature Temperature Source Pulse Rate 95 Respiratory Rate 17 Respiratory Effort Respiratory Depth Respiratory Pattern Normal Blood Pressure 70/49 L Blood Pressure Mean 56 Pulse Ox 96 Oxygen Delivery Method High Flow High Flow Oxygen Flow Rate (L/min) 8 02/28/22 20:30 02/28/22 20:45 02/28/22 21:00 Temperature Temperature Source Pulse Rate 91 89 81 Respiratory Rate 30 H 28 H 32 H Respiratory Effort Respiratory Depth Respiratory Pattern Blood Pressure 71/41 L 77/40 L 71/53 L Blood Pressure Mean 51 52 59 Pulse Ox 97 98 91 Oxygen Delivery Method High Flow High Flow High Flow Oxygen Flow Rate (L/min) 8 8 6 02/28/22 20:38 02/28/22 20:38 02/28/22 21:07 Temperature 100.9 F H Temperature Source Temporal Pulse Rate 85 88 Respiratory Rate 26 H 30 H 17 Respiratory Effort Short of Breath Labored Respiratory Depth Shallow Respiratory Pattern Tachypnea Tachypnea Blood Pressure 78/42 L Blood Pressure Mean 54 Pulse Ox 94 91 Oxygen Delivery Method Nasal Cannula High Flow Oxygen Flow Rate (L/min) 6 6 02/28/22 21:15 02/28/22 22:14 02/28/22 22:16 Temperature 98.2 F Temperature Source Temporal Pulse Rate 89 83 Respiratory Rate 31 H 17 Respiratory Effort Respiratory Depth Respiratory Pattern Blood Pressure 88/46 L 165/155 H Blood Pressure Mean 60 158 Pulse Ox 91 92 92 Oxygen Delivery Method High Flow Nasal Cannula Room Air Oxygen Flow Rate (L/min) 6 6 02/28/22 23:00 02/28/22 23:00 02/28/22 23:39 Temperature 98.4 F Temperature Source Temporal Pulse Rate 78 Respiratory Rate 15 Respiratory Effort Respiratory Depth Respiratory Pattern Blood Pressure 64/29 L Blood Pressure Mean 40 Pulse Ox 84 84 92 Oxygen Delivery Method Nasal Cannula Nasal Cannula Nasal Cannula Oxygen Flow Rate (L/min) 4 8 02/28/22 23:49 Temperature Temperature Source Pulse Rate Respiratory Rate Respiratory Effort Respiratory Depth Respiratory Pattern Blood Pressure 97/70 Blood Pressure Mean 79 Pulse Ox Oxygen Delivery Method T-piece Oxygen Flow Rate (L/min) Positive well nourished and well developed General Appearance ED: well developed HEENT Reports dry mucous membranes Mouth ED: Yes dry mucous membranes Mouth: dry mucous membranes Eyes EOMs intact bilaterally Chest Wall inspection of chest normal and palpation of chest normal Resp Resp Narrative: Mild tachypnea with expiratory wheezes. Mild rhonchi. Cardio regular rate and regular rhythm GI GI Narrative: Abdomen soft and nontender. Extremity Extremity Narrative: 2+ bilateral lower extremity edema. Neuro Neuro Narrative: Patient alert but has generalized weakness. Skin no rashes or lesions noted Sepsis Attestation Sepsis Alert: Yes Sepsis Attestation: Agree w/Sepsis Possible Source of Sepsis: Pulmonary Sepsis Organ Dysfunction Criteria Present: SBP < 90 mmHg or MAP < 65 mmHg and Lactic Acid > 2 mmol/L Fluid Resuscitation Fluid resuscitation indicated?: Yes Fluid Resuscitation ordered: 30 ml/kg fluid bolus ordered MDM MDM MDM Narrative Medical decision making narrative: Patient on high flow nasal cannula at the time of my exam. Sepsis work-up was initiated. Chest x-ray obtained along with EKG, urinalysis, VBG. IV fluid boluses were started. Patient's blood pressure is low on arrival. On review of prior records it appears his systolic blood pressure usually runs between 100-110. Lab Data Attestation: I reviewed the patient's lab results. Labs: Laboratory Results - last 24 hr 02/28/22 02/28/22 02/28/22 20:15 20:15 20:15 WBC 6.6 RBC 3.69 L Hgb 12.5 L Hct 39.6 L MCV 107.3 H MCH 33.9 H MCHC 31.6 L RDW Std Deviation 67.8 H RDW Coeff of Jean-Paul 17.2 H Plt Count 117 L MPV 9.5 Immature Gran % (Auto) 0.500 Neut % (Auto) 59.6 Lymph % (Auto) 17.5 L [place] % (Auto) 19.8 H Eos % (Auto) 2.1 Baso % (Auto) 0.5 Absolute Neuts (auto) 3.9 Absolute Lymphs (auto) 1.16 Nucleated RBC % 0 Platelet Estimate SLT DEC RBC Morphology N CHROM Polychromasia RARE Anisocytosis 2+ Macrocytosis 2+ PT 17.0 H INR 1.4 APTT 45.8 H Sodium 131 L Potassium 5.3 H Chloride 92 L Carbon Dioxide 31.0 Anion Gap 8 BUN 23 H Creatinine 1.75 H Estim Creat Clear Calc 46.01 Est GFR (MDRD) Af Amer 52 L Est GFR (MDRD) Non-Af 43 L BUN/Creatinine Ratio 13.1 Glucose 136 H Lactic Acid Calcium 8.6 Total Bilirubin 2.90 H AST 48 H ALT 15 L Alkaline Phosphatase 79 Total Protein 6.5 Albumin 2.7 L Globulin 3.8 Albumin/Globulin Ratio 0.7 L Urine Color Urine Clarity Urine pH Ur Specific [place] Urine Protein Urine Glucose (UA) Urine Ketones Urine Occult Blood Urine Nitrite Urine Bilirubin Urine Urobilinogen Ur Leukocyte Esterase Urine RBC Urine WBC Ur Squamous Epith Cells Amorphous Sediment Urine Bacteria Urine Mucus 02/28/22 02/28/22 20:15 21:00 WBC RBC Hgb Hct MCV MCH MCHC RDW Std Deviation RDW Coeff of Jean-Paul Plt Count MPV Immature Gran % (Auto) Neut % (Auto) Lymph % (Auto) [place] % (Auto) Eos % (Auto) Baso % (Auto) Absolute Neuts (auto) Absolute Lymphs (auto) Nucleated RBC % Platelet Estimate RBC Morphology Polychromasia Anisocytosis Macrocytosis PT INR APTT Sodium Potassium Chloride Carbon Dioxide Anion Gap BUN Creatinine Estim Creat Clear Calc Est GFR (MDRD) Af Amer Est GFR (MDRD) Non-Af BUN/Creatinine Ratio Glucose Lactic Acid 4.3 H* Calcium Total Bilirubin AST ALT Alkaline Phosphatase Total Protein Albumin Globulin Albumin/Globulin Ratio Urine Color Tammy Urine Clarity Sl. Cloudy Urine pH 5.0 Ur Specific [place] 1.025 Urine Protein 30 H Urine Glucose (UA) Normal Urine Ketones 15 H Urine Occult Blood 10 H Urine Nitrite Negative Urine Bilirubin 3 H Urine Urobilinogen 12 H Ur Leukocyte Esterase 25 H Urine RBC 0 SEEN Urine WBC 0-5 SEEN Ur Squamous Epith Cells 0-5 SEEN Amorphous Sediment 2+ Urine Bacteria RARE Urine Mucus 0 SEEN Radiography Chest X-Ray - ED: 1 View, Read by ED Physician and Left Infiltrate Diagnostic Testing: Clinical Impression(s) from Imaging Studies Chest X-Ray 02/28/22 21:18 IMPRESSION: 1. Heterogeneous airspace disease involving the left mid to lower lung is concerning for pneumonia in the appropriate clinical setting. Alternatively this could represent tumor. 2. Loculated small to moderate left pleural effusion suspected. 3. A left perihilar mass with interstitial extension is not excluded as well seen on recent chest CT. Electronically Signed: Kemal Alejandro MD at 22:02 EST , EKG Initial EKG: Attestation: I personally reviewed and interpreted this EKG as follows: Interpretation: Sinus Rhythm (Sinus at [address] change. QTC is noted be 581.) Treatment and Re-Evaluation Narrative: CBC reveals a white count of 6.6 with 12.5 hemoglobin. No significant left shift. Chemistry studies reveal a sodium of 131 and potassium of 5.3. Chloride is 92. BUN is 23 and creatinine is 1.75. It appears his baseline creatinine is around 0.7. Urinalysis shows rare bacteria with 0-5 white cells and 0-5 epithelials. Lactic acid is elevated at 4.3. Chest x-ray per my interpretation appears to show left lower lobe infiltrate. Radiology interpretation is reviewed. They do note the patient has a left perihilar mass. Patient is currently on 8 L high flow nasal cannula with O2 sat of 97%. Patient has been ordered 30 cc/kg IV fluid bolus. Blood pressure initially improved to the low 90s systolic, but now is dropping again. Levophed has been ordered for bedside. The most recent blood pressure is now reading 97/70. I discussed with the patient whether he would want to be intubated if his breathing worsens. He states he does not. I asked him if he would like CPR if his heart stops. He states he would not want CPR. Patient has been ordered Zosyn and vancomycin. I will speak with hospitalist regarding admission. 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, Discussing w/Consultants, Arranging Admission or Transfer and Performing Direct Patient Care at Bedside Discharge Plan Triage Chief Complaint: Weakness ED Provider: Ginger Santillan Dx/Rx/DC Orders Clinical Impression: Pneumonia, Septic shock, Acute kidney failure, Lung cancer Prescriptions: No Action Ozempic 1 mg/dose (2 mg/1.5 mL) pen injector 1 mg subcut FR milk thistle 500 mg capsule 1,500 mg PO TID Rx Instructions: give with meal/snack prochlorperazine maleate 10 mg tablet 10 mg PO Q6H PRN (Reason: nausea and vomiting) Qty: 30 2RF ondansetron 8 mg tablet,disintegrating 8 mg PO Q8H PRN (Reason: nausea and vomiting) Qty: 30 2RF lidocaine-prilocaine 2.5-2.5 % cream 1 applic topical ONCE PRN (Reason: port access) 30 Days Qty: 30 2RF furosemide 40 mg tablet 40 mg PO BREAKFAST Label Comments: TAKE 1 TABLET BY MOUTH IN THE MORNING, TAKE 1/2 (ONE-HALF) OF A TABLET IN THE EVENING atorvastatin 80 mg tablet 80 mg PO QHS Label Comments: TAKE 1 TABLET BY MOUTH DAILY EVERY EVENING pantoprazole 20 mg tablet,delayed release (DR/EC) 20 mg PO DAILY Label Comments: TAKE 1 TABLET BY MOUTH DAILY BEFORE BREAKFAST lisinopril 10 mg tablet 10 mg PO DAILY Label Comments: Take 1 tab Tablet by mouth daily fluticasone propionate 50 mcg/actuation spray,suspension 1 spray INTRANASAL DAILY Label Comments: SPRAY 1 (ONE) IN EACH NOSTRIL DAILY metformin 750 mg tablet extended release 24 hr 750 mg PO DAILY Label Comments: TAKE 1 TABLET BY MOUTH EVERY DAY Advair HFA 115-21 mcg/actuation HFA aerosol inhaler 1 puff INHALATION BID Label Comments: INHALE 1 (ONE) PUFF TWICE DAILY potassium chloride 20 mEq tablet extended release 20 meq PO DAILY Label Comments: TAKE 1 TABLET BY MOUTH DAILY furosemide 40 mg tablet 20 mg PO DINNER Label Comments: TAKE 1 TABLET BY MOUTH IN THE MORNING, TAKE 1/2 (ONE-HALF) OF A TABLET IN THE EVENING albuterol sulfate 2.5 mg /3 mL (0.083 %) solution for nebulization 1 mg inhalation Q8H PRN PRN (Reason: Shortness Of Breath) Label Comments: use 1 vial in a nebulizer every 8 hours, only as needed for wheezing/trouble breathing MAGIC MOUTH WASH (BMX) 180 mL suspension 15 ml PO .Q6HR Qty: 180 5RF Rx Instructions: diphenhydramine 12.5 mg/5 mL oral liquid 60 mL; aluminum-mag hydroxide-simethicone 400 mg-400 mg-40 mg/5 mL oral susp 60 mL; Lidocaine Viscous 2 % mucosal solution 60 mL; Per 180 mL Primary Care Provider: Milena Guevara Referrals: Milena Guevara DO [Primary Care Provider] - Disposition Disposition: Acute Care Hospital [facility]
[2022-02-28] MEDS: Ipratropium/Albuterol Sulfate 3 ML AMPUL.NEB INHALATION (20:38)
[2022-02-28 20:51] LABS: Absolute Lymphocyte Count 1.16 X10^3/uL (0.83-4.51); Absolute Neutrophil Count 3.9 X10^3/uL (2.0-7.7); Basophil# 0.03 X10^3/uL; Basophil% 0.5 % (0-1); Eosinophil# 0.14 X10^3/uL; Eosinophils% 2.1 % (0-5); Hematocrit 39.6 % (40-54); Hemoglobin 12.5 g/dL (13.0-16.5); Lymphocyte # 1.16 X10^3/ul (0.83-4.51); Lymphocyte % 17.5 % (19-41); Mean Corp Hgb Conc 31.6 g/dL (32-36); Mean Corpuscular Hgb 33.9 pg (27.0-32.0); Mean Corpuscular Volume 107.3 fL (80-94); Mean Platelet Vol. 9.5 fl (6.2-12.0); Monocyte# 1.31 X10^3/uL; Monocyte% 19.8 % (0-10); NRBC Flagged by Analyzer 0 % (0-5); Neutrophil # 3.94 X10^3/uL (2.7-7.7); Neutrophil % 59.6 % (47-70); POSITIVE MORPHOLOGY YES; Platelet Count 117 K/mm3 (150-450); RBC Distribution Width CV 17.2 % (11.6-14.6); RBC Distribution Width SD 67.8 fl (35.1-43.9); Red Blood Count 3.69 M/mm3 (4.6-6.2); White Blood Count 6.6 K/mm3 (4.4-11.0)
[2022-02-28 20:55] LABS: Differential Indicated SCAN CRITERIA MET
[2022-02-28 20:56] LABS: International Normalized Ratio 1.4
[2022-02-28 20:57] LABS: Partial Thromboplast Time 45.8 Seconds (24.1-36.2)
[2022-02-28 20:59] LABS: ALB/GLOB Ratio 0.7 RATIO (0.9-2.4); AST(SGOT) 48 U/L (15-37); Alanine Aminotransfer ALT/SGPT 15 U/L (16-61); Albumin, Serum 2.7 g/dL (3.2-5.0); Alkaline Phosphatase 79 U/L (45-117); Anion Gap 8 (5-15); BUN 23 mg/dL (7-18); BUN/Creat Ratio 13.1 RATIO (10-20); Calcium,Total 8.6 mg/dL (8.5-10.1); Chloride 92 mmol/L (98-107); Creatinine, Serum 1.75 mg/dL (0.70-1.30); EST Glomerular Filtration Rate 43 mL/min (>60); Est Glom Filt Rate - Afr Amer 52 mL/min (>60); Estimated Creatinine Clearance 46.01 ml/min; Globulin 3.8 g/dL (2.2-4.2); Glucose 136 mg/dL (74-106); Potassium 5.3 mmol/L (3.5-5.1); Protein, Total 6.5 g/dL (6.4-8.2); Sodium Level 131 mmol/L (136-145)
[2022-02-28] MEDS: Acetaminophen 650 MG Suppository RC (21:10)
[2022-02-28 21:18] LABS: Mucous, Urine 0 SEEN /hpf (<or=2+); Red Blood Cells-Urine 0 SEEN /hpf (0-5)
[2022-02-28 21:18] LABS: Anisocytosis 2+; Macrocytosis 2+; Platelet Estimate SLT DEC (ADEQ); Polychromasia RARE; Red Cell Morphology N CHROM NORMAL (NORM C&C)
--- NOTE | 2022-02-28 21:18 | RAD_ITS ---
EXAM: XR CHEST, 1 VIEW CLINICAL INDICATION: shortness of breath TECHNIQUE: Frontal view of the chest. This report was created using [employer] report generation technology. COMPARISON: Chest CT November 14, 2021 FINDINGS: LUNGS AND PLEURAL SPACES: Heterogeneous airspace disease involving the left mid to lower lung. Loculated small to moderate left pleural effusion suspected. Fullness of the right hilar region with left hilar region obscured. No pneumothorax. HEART: Questionable fullness of the cardiac silhouette on a portable examination. MEDIASTINUM: Central airways and mediastinal contour are grossly unremarkable. BONES/JOINTS: Degenerative changes acromioclavicular joint and spine. SOFT TISSUES: Unremarkable. TUBES, LINES AND DEVICES: Right chest port identified with tip in the suprahilar SVC. RAD/Chest 1 View (Portable) IMPRESSION: 1. Heterogeneous airspace disease involving the left mid to lower lung is concerning for pneumonia in the appropriate clinical setting. Alternatively this could represent tumor. 2. Loculated small to moderate left pleural effusion suspected. 3. A left perihilar mass with interstitial extension is not excluded as well seen on recent chest CT. Electronically Signed: Kemal Alejandro MD at 22:02 EST ,
[2022-02-28 21:36] LABS: Lactic Acid 4.3 mmol/L (0.4-1.9)
[2022-02-28 21:40] LABS: Color, Urine Amber (Yellow); Glucose, Dipstick Normal (Normal); Ketone-Dipstick 15 mg/dl (Negative); Leukocyte Esterase-Dipstick 25 /ul (Negative); Nitrite-Dipstick Negative (Negative); Occult Blood-Urine 10 /ul (Negative); Protein-Dipstick 30 mg/dl (Negative); Specific Gravity, Urine 1.025 (1.002-1.030); Urine Clarity Sl. Cloudy (Clear); Urine Urobilinogen 12 mg/dl (Normal)
[2022-02-28 21:43] LABS: Urine Bilirubin Dipstick 3 mg/dL (Negative)
[2022-02-28 21:50] LABS: Amorphous Sediment 2+; Squamous Epithelial Cells - UA 0-5 SEEN /hpf (0-5)
[2022-02-28 21:51] LABS: Bacteria RARE /hpf (None Seen); White Blood Cells 0-5 SEEN /hpf (0-5)
[2022-03-01] VITALS (35 sets, daily range): BP systolic 62–133; BP diastolic 32–95; PULSE 73–101; RESP 12–34; TEMP 37.2–37.7; O2SAT 69–100; BMI 50.8
--- NOTE | 2022-03-01 00:36 | PCM.HP.STD ---
HPI - General General Date of Admission: 03/01/22 Date of Service: 03/01/22 Chief Complaint: Shortness of breath HPI Narrative SHAAN WHITAKER, is a 56 M with a significant history of lung cancer metastasized to the liver and on palliative chemotherapy who presents to the emergency department with 1 week history of progressively worsening shortness of breath. Reportedly since his family had not heard from him about a week to check on him and found to the patient was in bed and weak. Patient reports dry cough that has not changed. He reported being fatigued. He denies any fever. He denies chills. [facility] Medical History Abnormal EKG Acute and chronic respiratory failure with hypoxia Alcohol use Arthralgia of hand Arthritis Back pain Bilateral hand numbness Blister BMI 50.0-59.9, adult Cancer Cancer, metastatic to liver Chronic back pain greater than 3 months duration CINV (chemotherapy-induced nausea and vomiting) COPD (chronic obstructive pulmonary disease) COVID Diabetes Diastolic congestive heart failure Dietary restriction Encounter for chemotherapy management Encounter for education Fatigue Fatty liver Gastric reflux GERD (gastroesophageal reflux disease) High cholesterol History of CHF (congestive heart failure) History of chronic respiratory failure History of edema History of pain when walking History of rectal bleeding History of stress test Hx of fracture of lower leg Hx of pleural effusion Hypertension Imbalance Injury of head and neck Leg cramps Liver mass Marijuana use Neck muscle spasm Nicotine dependence, cigarettes, uncomplicated On home oxygen therapy Osteoarthritis Polycythemia secondary to smoking Poor dentition Port-A-Cath in place Pruritus Seasonal allergies Secondary restless legs syndrome Shortness of breath on exertion Sleep apnea, obstructive Smoker Squamous cell lung cancer Substance abuse Thrombocytopenia Wears glasses Home Medications albuterol sulfate 2.5 mg/3 mL (0.083 %) solution for nebulization 1 mg inhalation Q8H PRN PRN Shortness Of Breath 07/06/21 [History Last Taken Unknown] atorvastatin 80 mg tablet 80 mg PO QHS cholesterol 07/06/21 [History Last Taken Unknown] fluticasone propionate 115 mcg-salmeterol 21 mcg/actuation HFA inhaler (Advair HFA) 1 puff inhalation BID breathing 07/06/21 [History Last Taken Unknown] fluticasone propionate 50 mcg/actuation nasal spray,suspension 1 spray intranasal DAILY allergies 07/06/21 [History Last Taken Unknown] furosemide 40 mg tablet 20 mg PO DINNER diuretic 07/06/21 [History Last Taken Unknown] furosemide 40 mg tablet 40 mg PO BREAKFAST diuretic 07/06/21 [History Last Taken Unknown] lisinopril 10 mg tablet 10 mg PO DAILY blood pressure 07/06/21 [History Last Taken Unknown] metformin 750 mg tablet,extended release 24 hr 750 mg PO DAILY diabetes 07/06/21 [History Last Taken Unknown] pantoprazole 20 mg tablet,delayed release 20 mg PO DAILY reflux 07/06/21 [History Last Taken Unknown] potassium chloride 20 mEq tablet,extended release 20 meq PO DAILY supplement 07/06/21 [History Last Taken Unknown] semaglutide 1 mg/dose (2 mg/1.5 mL) subcutaneous pen injector (Ozempic) 1 mg subcut FR diabetes 07/12/21 [History Last Taken Unknown] milk thistle 500 mg capsule 1,500 mg PO TID 09/06/21 [History Last Taken Unknown] lidocaine-prilocaine 2.5 %-2.5 % topical cream 1 applic topical ONCE PRN port access 30 days #30 grams 09/14/21 [Rx Last Taken Unknown] ondansetron 8 mg disintegrating tablet 8 mg PO Q8H PRN nausea and vomiting #30 tabs 09/14/21 [Rx Last Taken Unknown] prochlorperazine maleate 10 mg tablet 10 mg PO Q6H PRN nausea and vomiting #30 tabs 09/14/21 [Rx Last Taken Unknown] MAGIC MOUTH WASH (BMX) 180 mL suspension 15 ml PO .Q6HR #180 mL 10/05/21 [Rx Last Taken Unknown] Allergy/AdvReac Type Severity Reaction Status Date / Time No Known Allergies Allergy Verified 02/01/22 09:28 Family History Mother Heart disease Father Diabetes Brother Heart disease Surgical History History of back surgery History of cardiac catheterization History of lumbar spinal fusion History of surgery on lower extremity Hx laparoscopic cholecystectomy Social History Smoking Status: Current every day smoker tobacco type: cigarettes Tobacco: How many years used: 40 alcohol intake: never substance use type: does not use ROS ROS Narrative Pertinent positives and pertinent negatives as noted in HPI. All other systems were reviewed and are negative Vital Signs Vital Signs Vital Signs: 02/28/22 20:03 02/28/22 20:07 02/28/22 20:07 Temperature 101.5 F H 100.4 F H 100.4 F H Temperature Source Axillary Temporal Oral Pulse Rate 74 91 91 Respiratory Rate 18 18 28 H Respiratory Effort Respiratory Depth Respiratory Pattern Blood Pressure 81/38 L 81/38 L 81/38 L Blood Pressure Mean 52 52 52 Pulse Ox 99 84 100 Oxygen Delivery Method Room Air Room Air Non-Rebreather Oxygen Flow Rate (L/min) 15 02/28/22 20:26 02/28/22 20:37 02/28/22 20:15 Temperature Temperature Source Pulse Rate 95 Respiratory Rate 17 Respiratory Effort Respiratory Depth Respiratory Pattern Normal Blood Pressure 70/49 L Blood Pressure Mean 56 Pulse Ox 96 Oxygen Delivery Method High Flow High Flow Oxygen Flow Rate (L/min) 8 02/28/22 20:30 02/28/22 20:45 02/28/22 21:00 Temperature Temperature Source Pulse Rate 91 89 81 Respiratory Rate 30 H 28 H 32 H Respiratory Effort Respiratory Depth Respiratory Pattern Blood Pressure 71/41 L 77/40 L 71/53 L Blood Pressure Mean 51 52 59 Pulse Ox 97 98 91 Oxygen Delivery Method High Flow High Flow High Flow Oxygen Flow Rate (L/min) 8 8 6 02/28/22 20:38 02/28/22 20:38 02/28/22 21:07 Temperature 100.9 F H Temperature Source Temporal Pulse Rate 85 88 Respiratory Rate 26 H 30 H 17 Respiratory Effort Short of Breath Labored Respiratory Depth Shallow Respiratory Pattern Tachypnea Tachypnea Blood Pressure 78/42 L Blood Pressure Mean 54 Pulse Ox 94 91 Oxygen Delivery Method Nasal Cannula High Flow Oxygen Flow Rate (L/min) 6 6 02/28/22 21:15 02/28/22 22:14 02/28/22 22:16 Temperature 98.2 F Temperature Source Temporal Pulse Rate 89 83 Respiratory Rate 31 H 17 Respiratory Effort Respiratory Depth Respiratory Pattern Blood Pressure 88/46 L 165/155 H Blood Pressure Mean 60 158 Pulse Ox 91 92 92 Oxygen Delivery Method High Flow Nasal Cannula Room Air Oxygen Flow Rate (L/min) 6 6 02/28/22 23:00 02/28/22 23:00 02/28/22 23:39 Temperature 98.4 F Temperature Source Temporal Pulse Rate 78 Respiratory Rate 15 Respiratory Effort Respiratory Depth Respiratory Pattern Blood Pressure 64/29 L Blood Pressure Mean 40 Pulse Ox 84 84 92 Oxygen Delivery Method Nasal Cannula Nasal Cannula Nasal Cannula Oxygen Flow Rate (L/min) 4 8 02/28/22 23:49 03/01/22 00:00 03/01/22 00:33 Temperature Temperature Source Temporal Pulse Rate Respiratory Rate Respiratory Effort Respiratory Depth Respiratory Pattern Blood Pressure 97/70 62/49 L 86/45 L Blood Pressure Mean 79 53 58 Pulse Ox 92 92 Oxygen Delivery Method T-piece Nasal Cannula Nasal Cannula Oxygen Flow Rate (L/min) 8 8 Weight Weight: 153.4 kg Body Mass Index (BMI) 49.9 Physical Exam Narrative Physical exam: General: Well-nourished, well-developed. Head: Normocephalic, atraumatic, no tenderness Eyes: Vision is grossly intact. EOMI ENT, no trauma, dry mucous membranes, no rhinorrhea Neck: Nontender, No thyromegaly. CVS: Regular rate and rhythm. S1-S2 present. No murmur, gallop or rub. Respiratory : Wheezes, chest wall nontender. Abdomen: Soft, nontender, nondistended, normal bowel sounds, no masses : Deferred Back: Nontender, no CVA tenderness, no midline spinal tenderness, deformities, step-offs Extremities: Nontender full range of motion, no trauma Skin: Normal color, no trauma, abrasions Neuro: Lethargic. Oriented to self and place. Does not know the month, or the year. Psychiatry: Normal mood. Normal affect. Not depressed. Not anxious. Results Lab / Micro Data Result Diagrams: 03/01/22 02:15 03/01/22 02:15 Labs: Laboratory Results - last 24 hr 02/28/22 20:15: WBC 6.6, RBC 3.69 L, Hgb 12.5 L, Hct 39.6 L, MCV 107.3 H, MCH 33.9 H, MCHC 31.6 L, RDW Std Deviation 67.8 H, RDW Coeff of Jean-Paul 17.2 H, Plt Count 117 L, MPV 9.5, Immature Gran % (Auto) 0.500, Neut % (Auto) 59.6, Lymph % (Auto) 17.5 L, [place] % (Auto) 19.8 H, Eos % (Auto) 2.1, Baso % (Auto) 0.5, Absolute Neuts (auto) 3.9, Absolute Lymphs (auto) 1.16, Nucleated RBC % 0, Platelet Estimate SLT DEC, RBC Morphology N CHROM, Polychromasia RARE, Anisocytosis 2+, Macrocytosis 2+ 02/28/22 20:15: PT 17.0 H, INR 1.4, APTT 45.8 H 02/28/22 20:15: Sodium 131 L, Potassium 5.3 H, Chloride 92 L, Carbon Dioxide 31.0, Anion Gap 8, BUN 23 H, Creatinine 1.75 H, Estim Creat Clear Calc 46.01, Est GFR (MDRD) Af Amer 52 L, Est GFR (MDRD) Non-Af 43 L, BUN/Creatinine Ratio 13.1, Glucose 136 H, Calcium 8.6, Total Bilirubin 2.90 H, AST 48 H, ALT 15 L, Alkaline Phosphatase 79, Total Protein 6.5, Albumin 2.7 L, Globulin 3.8, Albumin/Globulin Ratio 0.7 L 02/28/22 20:15: Lactic Acid 4.3 H* 02/28/22 21:00: Urine Color Tammy, Urine Clarity Sl. Cloudy, Urine pH 5.0, Ur Specific [place] 1.025, Urine Protein 30 H, Urine Glucose (UA) Normal, Urine Ketones 15 H, Urine Occult Blood 10 H, Urine Nitrite Negative, Urine Bilirubin 3 H, Urine Urobilinogen 12 H, Ur Leukocyte Esterase 25 H, Urine RBC 0 SEEN, Urine WBC 0-5 SEEN, Ur Squamous Epith Cells 0-5 SEEN, Amorphous Sediment 2+, Urine Bacteria RARE, Urine Mucus 0 SEEN Micro: Microbiology 02/28/22 23:25 Nasal Secretion SARS-CoV-2 & FLU Antigen (Rapid) - Final Radiology Impression Chest X-Ray 02/28/22 21:18 IMPRESSION: 1. Heterogeneous airspace disease involving the left mid to lower lung is concerning for pneumonia in the appropriate clinical setting. Alternatively this could represent tumor. 2. Loculated small to moderate left pleural effusion suspected. 3. A left perihilar mass with interstitial extension is not excluded as well seen on recent chest CT. Electronically Signed: Kemal Alejandro MD at 22:02 EST , Assessment & Plan Assessment/Plan (1) Septic shock: (2) Pneumonia: (3) Acute kidney failure: (4) Lung cancer: PLAN: Plan Septic shock secondary to pneumonia The patient presented with sepsis due to (pneumonia) with acute sepsis related organ dysfunction as evidenced by (lactic acidosis; hypotension and acute hypercapnic respiratory failure) SIRS criteria: Temperature more than 100.9 Fahrenheit or less than 96.8 Fahrenheit Respiratory rate more than 20 Heart rate more than 90 WBC more than 12,000 or less than 4000 or more than 10% bands Chest x-ray with infiltrate was visualized and independently interpreted and I agree with radiologist interpretation Lactic acid of 4.3. Received 30 mL/kg bolus of IV fluids and systolic blood pressure remained less than 90 so was initiated on Levophed drip at the emergency department. Vasopressin added onto level. Started on steroids. Lung cancer Not improving JJ Creatinine presentation was 1.75. Baseline creatinine is less than 1. Volume resuscitation as above. Pressors as above. Trend BMP. Avoid nephrotoxic's Diabetes mellitus Patient with mild hyperglycemia on presentation Metformin held. Prognosis is poor. Family is trending towards comfort care. Trend BMP DVT prophylaxis Subcutaneous Lovenox ordered. Charges/Coding Visit Charges Inpatient E&M: 36589 Init Hosp L3
[2022-03-01 00:42] LABS: Reflex Lactate? Y
[2022-03-01 01:02] LABS: Blood Gas Specimen Type VEN; O2 Delivery Device HFNC; SITE VENOUS
[2022-03-01 01:03] LABS: Time Given 2017; VBG pH 7.29 (7.32-7.42)
[2022-03-01 01:04] LABS: VBG BASE EXCESS 3 mmol/L (-1.0-3.5); VBG Bicarbonate 30 mmol/L (22-26); VBG PO2 37 mmHg (25-40); VBG SO2 62 % (50-70); VBG TCO2 32 mmol/L (23-33); VBG pCO2 61.3 mmHg (41-51)
[2022-03-01 01:25] LABS: Lactic Acid 1.5 mmol/L (0.4-1.9)
[2022-03-01 01:28] LABS: CPK Total, Creatine Kinase 776 U/L (39-308)
[2022-03-01] MEDS: 0.9% Normal Saline 1,000 ML 75 ML IV (01:55)
[2022-03-01 02:35] LABS: Absolute Lymphocyte Count 1.55 X10^3/uL (0.83-4.51); Absolute Neutrophil Count 5.2 X10^3/uL (2.0-7.7); Basophil# 0.04 X10^3/uL; Basophil% 0.5 % (0-1); Eosinophil# 0.18 X10^3/uL; Eosinophils% 2.1 % (0-5); Hematocrit 34.4 % (40-54); Hemoglobin 10.6 g/dL (13.0-16.5); Lymphocyte # 1.55 X10^3/ul (0.83-4.51); Lymphocyte % 18.2 % (19-41); Mean Corp Hgb Conc 30.8 g/dL (32-36); Mean Corpuscular Hgb 33.5 pg (27.0-32.0); Mean Corpuscular Volume 108.9 fL (80-94); Mean Platelet Vol. 9.4 fl (6.2-12.0); Monocyte# 1.46 X10^3/uL; Monocyte% 17.1 % (0-10); NRBC Flagged by Analyzer 0.2 % (0-5); Neutrophil # 5.23 X10^3/uL (2.7-7.7); Neutrophil % 61.3 % (47-70); POSITIVE MORPHOLOGY YES; Platelet Count 108 K/mm3 (150-450); RBC Distribution Width CV 17.2 % (11.6-14.6); RBC Distribution Width SD 67.8 fl (35.1-43.9); Red Blood Count 3.16 M/mm3 (4.6-6.2); White Blood Count 8.5 K/mm3 (4.4-11.0)
[2022-03-01 02:49] LABS: Anion Gap 3 (5-15); BUN 23 mg/dL (7-18); BUN/Creat Ratio 14.6 RATIO (10-20); Calcium,Total 7.7 mg/dL (8.5-10.1); Chloride 99 mmol/L (98-107); Creatinine, Serum 1.57 mg/dL (0.70-1.30); EST Glomerular Filtration Rate 48 mL/min (>60); Est Glom Filt Rate - Afr Amer 59 mL/min (>60); Estimated Creatinine Clearance 49.62 ml/min; Glucose 134 mg/dL (74-106); Sodium Level 133 mmol/L (136-145)
[2022-03-01 03:03] LABS: Differential Indicated SCAN CRITERIA MET
[2022-03-01 03:04] LABS: Anisocytosis 1+; Differential Comment SCANNED; Macrocytosis 1+; Polychromasia RARE
[2022-03-01] MEDS: Hydrocortisone Sod Succinate 100 MG/2 ML Vial 50 MG IV (03:05)
--- NOTE | 2022-03-01 03:13 | PCM.RX.CS ---
Consult Pharmacy has been consulted to manage selected antiobiotic: Vancomycin Type of Consult: New start Suspected Infection: Sepsis, Pneumonia Prior Doses of Antibiotics Received/Current Regimen: Medications Vancomycin HCl 1,500 mg/ (Sodium Chloride) 530 mls @ 250 mls/hr IV Q12H OLIVIA Discontinued Medications Vancomycin HCl 2,000 mg/ (Sodium Chloride) 540 mls @ 250 mls/hr IV X1 ONE Stop: 03/01/22 00:30 Last Admin: 03/01/22 02:11 Dose: Infused Labs: Sodium 133 mmol/L (136-145) L 03/01/22 02:15 Potassium 5.0 mmol/L (3.5-5.1) 03/01/22 02:15 Chloride 99 mmol/L (98-107) 03/01/22 02:15 Carbon Dioxide 31.0 mmol/L (21.0-32.0) 03/01/22 02:15 Anion Gap 3 (5-15) L 03/01/22 02:15 BUN 23 mg/dL (7-18) H 03/01/22 02:15 Creatinine 1.57 mg/dL (0.70-1.30) H 03/01/22 02:15 Est GFR (MDRD) Af Amer 59 mL/min (>60) L 03/01/22 02:15 Est GFR (MDRD) Non-Af 48 mL/min (>60) L 03/01/22 02:15 BUN/Creatinine Ratio 14.6 RATIO (10-20) 03/01/22 02:15 Glucose 134 mg/dL (74-106) H 03/01/22 02:15 Microbiology: Microbiology 02/28/22 23:25 Nasal Secretion SARS-CoV-2 & FLU Antigen (Rapid) - Final Weight used for dosin.4 kg Estimated Creatinine Clearance: 67.4 Goal Trough: 15-20 mcg/mL Pharmacy Plan for Drug Dosing: Pharmacy Service will continue to monitor and adjust dosing as required. Follow-Up Labs: Trough Vancomycin Labs to be done on [date and time ordered]: 03/02/22 @1100
[2022-03-01 04:20] LABS: M R Staph aureus DNA By PCR Negative (Negative); Probe Check PASS
[2022-03-01 04:21] LABS: Specimen Processing Control PASS
--- NOTE | 2022-03-01 04:58 | NURSING ---
Attempted to call pt's sister in law Kristin and brother Eric. No answer from both, voicemails left for both of them.
--- NOTE | 2022-03-01 05:08 | NURSING ---
MD notified of pt becoming unresponsive and agonal breathing. Pt placed on Bipap @ 100%. MD to bedside to evaluate patient. No new orders given will continue to monitor.
[2022-03-01 05:21] LABS: Bedside Glucose 148 mg/dL (74-106)
[2022-03-01 05:40] LABS: Allen Test Positive; Base Excess 2 mmol/L (-2 to +2); Bicarbonate 30.2 mmol/L (22-26); Blood Gas Specimen Type ART; FI02 100; O2 Delivery Device BiPAP; PEEP 10; PO2 64 mmHG (75-100); RR 12; SITE R Radial; SO2 84 % (95-99); Total Carbon Dioxide 33 mmol/L; Vt 500; pCO2 81.8 mmHg (35-45); pH 7.17 (7.35-7.45)
--- NOTE | 2022-03-01 06:34 | NURSING ---
I was able to get into contact with pt family. I informed them of pt condition and they confirmed his code status of [id number]-A, No intubation.
--- NOTE | 2022-03-01 06:36 | EX.PCM.CONCC ---
Assessment & Plan Assessment/Plan (1) Septic shock: (2) Pneumonia: (3) Lung cancer: PLAN: Plan RECOMMENDATIONS: 1. Increase AVAPS target to 525 2. Continue pressors for now 3. Call family to the bedside 4. No transfusions at this time IMPRESSIONS: 1. Acute hypoxic respiratory failure secondary to probable postobstructive pneumonia Patient with severe combined respiratory failure on most recent ABG despite maximal BiPAP therapy. Family is very clear that he would not want to be intubated. Given lack of intubation, patient is at extremely high risk for mortality in the next 24 hours. We will continue aggressive measures until family arrives. We will likely discuss palliative measures moving forward. 2. Sepsis of unclear etiology Patient with elevated lactate and creatinine indicating endorgan damage. Patient febrile, tachypneic and tachycardic. Patient is on broad-spectrum antibiotics and is immunosuppressed secondary to chemotherapy. Cultures are currently pending, but given respiratory status it is unclear if he will survive throughout the day given goals of therapy. 3. Morbid obesity/metastatic squamous cell lung cancer/thrombocytopenia Complicates care, management, recovery and prognosis. No transfusions at this time. TIME: 31 minutes critical care time spent addressing patient's acute hypoxic respiratory failure, sepsis, review of all data and collaboration with care team HPI Consult Data Date of Consult: 03/01/22 HPI Narrative Reason for Consultation: Respiratory failure HPI Narrative: SHAAN WHITAKER is a 56 M, with past medical history listed below, who presents to [facility] on 02/28/2022 secondary to hypotension and shortness of breath. Patient reportedly lives alone and family had done a well check. Patient was lying in bed and weak and reported that he had not been eating or drinking for approximately a week. Patient does have a history of lung cancer with palliative chemotherapy last in January. On arrival to the ED, patient was noted to be febrile at 101.5 ?F, hypotensive at 81/38 and tachypneic at 28 breaths/min. Patient was placed on high flow, but eventually required BiPAP to maintain respiratory status. Laboratory work-up showed a white blood cell count of 6.6, hemoglobin of 12.5 and platelets of 117. Coagulation shows an INR of 1.4. Creatinine was elevated at 1.75 with a sodium of 131, chloride of 92 and a total bili of 2.9. UA was relatively unremarkable. Chest x-ray did show a loculated left pleural effusion with a left perihilar mass. Patient's lactate was elevated at 4.3, so patient was given a 30 cc/kg IV bolus. Patient was then initiated on Levophed, Zosyn and vancomycin admitted to the intensive care unit. Since being in the intensive care unit, patient's status continues to decline. Patient has been on BiPAP. Attempts to reach the family overnight have not been successful. Patient's family recently called back indicating that the patient is a DNR Comfort Care arrest without intubation. ABG completed on BiPAP showed significant respiratory acidosis with increased AA gradient. Unable to obtain review of systems secondary to mental status. [facility] Medical History Abnormal EKG Acute and chronic respiratory failure with hypoxia Alcohol use Arthralgia of hand Arthritis Back pain Bilateral hand numbness Blister BMI 50.0-59.9, adult Cancer Cancer, metastatic to liver Chronic back pain greater than 3 months duration CINV (chemotherapy-induced nausea and vomiting) COPD (chronic obstructive pulmonary disease) COVID Diabetes Diastolic congestive heart failure Dietary restriction Encounter for chemotherapy management Encounter for education Fatigue Fatty liver Gastric reflux GERD (gastroesophageal reflux disease) High cholesterol History of CHF (congestive heart failure) History of chronic respiratory failure History of edema History of pain when walking History of rectal bleeding History of stress test Hx of fracture of lower leg Hx of pleural effusion Hypertension Imbalance Injury of head and neck Leg cramps Liver mass Marijuana use Neck muscle spasm Nicotine dependence, cigarettes, uncomplicated On home oxygen therapy Osteoarthritis Polycythemia secondary to smoking Poor dentition Port-A-Cath in place Pruritus Seasonal allergies Secondary restless legs syndrome Shortness of breath on exertion Sleep apnea, obstructive Smoker Squamous cell lung cancer Substance abuse Thrombocytopenia Wears glasses Home Medications albuterol sulfate 2.5 mg/3 mL (0.083 %) solution for nebulization 1 mg inhalation Q8H PRN PRN Shortness Of Breath 07/06/21 [History Last Taken Unknown] atorvastatin 80 mg tablet 80 mg PO QHS cholesterol 07/06/21 [History Last Taken Unknown] fluticasone propionate 115 mcg-salmeterol 21 mcg/actuation HFA inhaler (Advair HFA) 1 puff inhalation BID breathing 07/06/21 [History Last Taken Unknown] fluticasone propionate 50 mcg/actuation nasal spray,suspension 1 spray intranasal DAILY allergies 07/06/21 [History Last Taken Unknown] furosemide 40 mg tablet 20 mg PO DINNER diuretic 07/06/21 [History Last Taken Unknown] furosemide 40 mg tablet 40 mg PO BREAKFAST diuretic 07/06/21 [History Last Taken Unknown] lisinopril 10 mg tablet 10 mg PO DAILY blood pressure 07/06/21 [History Last Taken Unknown] metformin 750 mg tablet,extended release 24 hr 750 mg PO DAILY diabetes 07/06/21 [History Last Taken Unknown] pantoprazole 20 mg tablet,delayed release 20 mg PO DAILY reflux 07/06/21 [History Last Taken Unknown] potassium chloride 20 mEq tablet,extended release 20 meq PO DAILY supplement 07/06/21 [History Last Taken Unknown] semaglutide 1 mg/dose (2 mg/1.5 mL) subcutaneous pen injector (Ozempic) 1 mg subcut FR diabetes 07/12/21 [History Last Taken Unknown] milk thistle 500 mg capsule 1,500 mg PO TID 09/06/21 [History Last Taken Unknown] lidocaine-prilocaine 2.5 %-2.5 % topical cream 1 applic topical ONCE PRN port access 30 days #30 grams 09/14/21 [Rx Last Taken Unknown] ondansetron 8 mg disintegrating tablet 8 mg PO Q8H PRN nausea and vomiting #30 tabs 09/14/21 [Rx Last Taken Unknown] prochlorperazine maleate 10 mg tablet 10 mg PO Q6H PRN nausea and vomiting #30 tabs 09/14/21 [Rx Last Taken Unknown] MAGIC MOUTH WASH (BMX) 180 mL suspension 15 ml PO .Q6HR #180 mL 10/05/21 [Rx Last Taken Unknown] Allergy/AdvReac Type Severity Reaction Status Date / Time No Known Allergies Allergy Verified 02/01/22 09:28 Family History Mother Heart disease Father Diabetes Brother Heart disease Surgical History History of back surgery History of cardiac catheterization History of lumbar spinal fusion History of surgery on lower extremity Hx laparoscopic cholecystectomy Social History Smoking Status: Current every day smoker tobacco type: cigarettes Tobacco: How many years used: 40 alcohol intake: never substance use type: does not use Physical Exam Const Constitutional Narrative: Morbidly obese. Fair BiPAP synchrony. Orientation / Consciousness: obtunded HEENT normocephalic and head/scalp atraumatic Eyes PERRL, EOMs intact bilaterally and no scleral icterus Eyes Narrative: Scleral injection noted Resp Resp Narrative: On BiPAP during my evaluation Effort and Inspection: labored and uses accessory muscles Auscultation: wheezes and diminished lung sounds Cardio regular rhythm, S1 normal heart sound, S2 normal heart sound, no murmurs, no rub and no gallops Cardio Narrative: Difficult to auscultate heart sounds given respiratory distress Rate: tachycardic GI normal to inspection, nondistended, normoactive bowel sounds Extremity General Extremity: edema Skin Skin Narrative: Scattered abrasions noted Neuro Neuro Narrative: Obtunded Psych Mood & Affect: flat affect Medical Records Data Attestation: I reviewed the patient's medical records (Patient receiving palliative chemotherapy for lung cancer.) Lab / Micro Data Attestation: I reviewed the patient's lab results. Result Diagrams: 03/01/22 02:15 03/01/22 02:15 Labs: Laboratory Results - last 24 hr 02/28/22 20:15: WBC 6.6, RBC 3.69 L, Hgb 12.5 L, Hct 39.6 L, MCV 107.3 H, MCH 33.9 H, MCHC 31.6 L, RDW Std Deviation 67.8 H, RDW Coeff of Jean-Paul 17.2 H, Plt Count 117 L, MPV 9.5, Immature Gran % (Auto) 0.500, Neut % (Auto) 59.6, Lymph % (Auto) 17.5 L, [place] % (Auto) 19.8 H, Eos % (Auto) 2.1, Baso % (Auto) 0.5, Absolute Neuts (auto) 3.9, Absolute Lymphs (auto) 1.16, Nucleated RBC % 0, Platelet Estimate SLT DEC, RBC Morphology N CHROM, Polychromasia RARE, Anisocytosis 2+, Macrocytosis 2+ 02/28/22 20:15: PT 17.0 H, INR 1.4, APTT 45.8 H 02/28/22 20:15: Sodium 131 L, Potassium 5.3 H, Chloride 92 L, Carbon Dioxide 31.0, Anion Gap 8, BUN 23 H, Creatinine 1.75 H, Estim Creat Clear Calc 46.01, Est GFR (MDRD) Af Amer 52 L, Est GFR (MDRD) Non-Af 43 L, BUN/Creatinine Ratio 13.1, Glucose 136 H, Calcium 8.6, Total Bilirubin 2.90 H, AST 48 H, ALT 15 L, Alkaline Phosphatase 79, Total Protein 6.5, Albumin 2.7 L, Globulin 3.8, Albumin/Globulin Ratio 0.7 L 02/28/22 20:15: Lactic Acid 4.3 H* 02/28/22 20:15: Total Creatine Kinase 776 H 02/28/22 21:00: Urine Color Tammy, Urine Clarity Sl. Cloudy, Urine pH 5.0, Ur Specific [place] 1.025, Urine Protein 30 H, Urine Glucose (UA) Normal, Urine Ketones 15 H, Urine Occult Blood 10 H, Urine Nitrite Negative, Urine Bilirubin 3 H, Urine Urobilinogen 12 H, Ur Leukocyte Esterase 25 H, Urine RBC 0 SEEN, Urine WBC 0-5 SEEN, Ur Squamous Epith Cells 0-5 SEEN, Amorphous Sediment 2+, Urine Bacteria RARE, Urine Mucus 0 SEEN 03/01/22 00:55: Lactic Acid 1.5 03/01/22 02:15: WBC 8.5, RBC 3.16 L, Hgb 10.6 L, Hct 34.4 L, MCV 108.9 H, MCH 33.5 H, MCHC 30.8 L, RDW Std Deviation 67.8 H, RDW Coeff of Jean-Paul 17.2 H, Plt Count 108 L, MPV 9.4, Immature Gran % (Auto) 0.800, Neut % (Auto) 61.3, Lymph % (Auto) 18.2 L, [place] % (Auto) 17.1 H, Eos % (Auto) 2.1, Baso % (Auto) 0.5, Absolute Neuts (auto) 5.2, Absolute Lymphs (auto) 1.55, Nucleated RBC % 0.2, Differential Comment SCANNED, Polychromasia RARE, Anisocytosis 1+, Macrocytosis 1+ 03/01/22 02:15: Sodium 133 L, Potassium 5.0, Chloride 99, Carbon Dioxide 31.0, Anion Gap 3 L, BUN 23 H, Creatinine 1.57 H, Estim Creat Clear Calc 49.62, Est GFR (MDRD) Af Amer 59 L, Est GFR (MDRD) Non-Af 48 L, BUN/Creatinine Ratio 14.6, Glucose 134 H, Calcium 7.7 L 03/01/22 02:15: MRSA (PCR) Negative 03/01/22 05:01: POC Glucose 148 H Micro: Microbiology 02/28/22 21:00 Urine Catheter - Catheter Legionella Antigen - Final 02/28/22 21:00 Urine Catheter - Catheter Streptococcus pneumoniae Antigen (M - Final 02/28/22 23:25 Nasal Secretion SARS-CoV-2 & FLU Antigen (Rapid) - Final ABG Data ABG results: ABG 02/28/22 03/01/22 20:17 05:36 Specimen Type TETO ART Sample Site VENOUS R Radial pH 7.17 L* Bicarbonate Actual 30.2 H Total CO2 33 Base Excess 2 O2 Saturation 84 L O2 % 100 ABG pCO2 81.8 H* ABG pO2 64 L Bronson Test Positive VBG pH 7.29 L VBG pO2 37 VBG HCO3 30 H VBG Total CO2 32 VBG O2 Sat (Calc) 62 VBG Base Excess 3 POC Mix VBG pCO2 Pt Tmp 61.3 H Respiration Rate 12 O2 Delivery Device HFNC BiPAP Liter Flow 10.0 Tidal Volume 500 POC PEEP 10 Crit Call To/Read Back Yes Yes Blood Gas Notified Whom Dr. Santillan Blood Gas Notified Time 2016 Attestation: I personally reviewed and interpreted this ABG as follows: (See HPI) Radiology Impression Chest X-Ray 02/28/22 21:18 IMPRESSION: 1. Heterogeneous airspace disease involving the left mid to lower lung is concerning for pneumonia in the appropriate clinical setting. Alternatively this could represent tumor. 2. Loculated small to moderate left pleural effusion suspected. 3. A left perihilar mass with interstitial extension is not excluded as well seen on recent chest CT. Electronically Signed: Kemal Alejandro MD at 22:02 EST , Charges/Coding Procedures Hospitalists Procedures: [id number] Critial Care 1st Hr
--- NOTE | 2022-03-01 06:53 | CPS ---
CRITICAL ABG DR. SCOTT MULLINS AWARE. NOT ENOUGH BLOOD FOR RE-RUN.
--- NOTE | 2022-03-01 07:24 | PN.HOSP_ITS ---
Objective Data Objective Data Vital Signs: Vital Signs Temp Pulse Resp BP Pulse Ox O2 Del Method O2 Flow Rate 37.7 C H 89 17 95/54 L 100 Bi-pap 14 03/01/22 02:35 03/01/22 07:14 03/01/22 07:14 03/01/22 07:00 03/01/22 07:14 03/01/22 07:14 03/01/22 04:45 FiO2 90 03/01/22 07:14 Oxygen Flow Rate (L/min) 14 Oxygen Delivery Method Bi-pap Weight: 155.6 kg Body Mass Index (BMI) 50.8 Intake & Output: Intake and Output for Last 24 Hours 02/27/22 02/28/22 03/01/22 23:59 23:59 23:59 Intake Total 3050 / 3050 2568.62 / 2568.62 Output Total 0 / 0 Balance 3050 / 3050 2568.62 / 2568.62 Lab / Micro Data Result Diagrams: 03/01/22 02:15 03/01/22 02:15 Labs: Laboratory Results - last 24 hr 02/28/22 20:15: WBC 6.6, RBC 3.69 L, Hgb 12.5 L, Hct 39.6 L, MCV 107.3 H, MCH 33.9 H, MCHC 31.6 L, RDW Std Deviation 67.8 H, RDW Coeff of Jean-Paul 17.2 H, Plt Count 117 L, MPV 9.5, Immature Gran % (Auto) 0.500, Neut % (Auto) 59.6, Lymph % (Auto) 17.5 L, [place] % (Auto) 19.8 H, Eos % (Auto) 2.1, Baso % (Auto) 0.5, Absolute Neuts (auto) 3.9, Absolute Lymphs (auto) 1.16, Nucleated RBC % 0, Platelet Estimate SLT DEC, RBC Morphology N CHROM, Polychromasia RARE, Anisocytosis 2+, Macrocytosis 2+ 02/28/22 20:15: PT 17.0 H, INR 1.4, APTT 45.8 H 02/28/22 20:15: Sodium 131 L, Potassium 5.3 H, Chloride 92 L, Carbon Dioxide 31.0, Anion Gap 8, BUN 23 H, Creatinine 1.75 H, Estim Creat Clear Calc 46.01, Est GFR (MDRD) Af Amer 52 L, Est GFR (MDRD) Non-Af 43 L, BUN/Creatinine Ratio 13.1, Glucose 136 H, Calcium 8.6, Total Bilirubin 2.90 H, AST 48 H, ALT 15 L, Alkaline Phosphatase 79, Total Protein 6.5, Albumin 2.7 L, Globulin 3.8, Albumin/Globulin Ratio 0.7 L 02/28/22 20:15: Lactic Acid 4.3 H* 02/28/22 20:15: Total Creatine Kinase 776 H 02/28/22 21:00: Urine Color Tammy, Urine Clarity Sl. Cloudy, Urine pH 5.0, Ur Specific [place] 1.025, Urine Protein 30 H, Urine Glucose (UA) Normal, Urine Ketones 15 H, Urine Occult Blood 10 H, Urine Nitrite Negative, Urine Bilirubin 3 H, Urine Urobilinogen 12 H, Ur Leukocyte Esterase 25 H, Urine RBC 0 SEEN, Urine WBC 0-5 SEEN, Ur Squamous Epith Cells 0-5 SEEN, Amorphous Sediment 2+, Urine Bacteria RARE, Urine Mucus 0 SEEN 03/01/22 00:55: Lactic Acid 1.5 03/01/22 02:15: WBC 8.5, RBC 3.16 L, Hgb 10.6 L, Hct 34.4 L, MCV 108.9 H, MCH 33.5 H, MCHC 30.8 L, RDW Std Deviation 67.8 H, RDW Coeff of Jean-Paul 17.2 H, Plt Count 108 L, MPV 9.4, Immature Gran % (Auto) 0.800, Neut % (Auto) 61.3, Lymph % (Auto) 18.2 L, [place] % (Auto) 17.1 H, Eos % (Auto) 2.1, Baso % (Auto) 0.5, Absolute Neuts (auto) 5.2, Absolute Lymphs (auto) 1.55, Nucleated RBC % 0.2, Differential Comment SCANNED, Polychromasia RARE, Anisocytosis 1+, Macrocytosis 1+ 03/01/22 02:15: Sodium 133 L, Potassium 5.0, Chloride 99, Carbon Dioxide 31.0, Anion Gap 3 L, BUN 23 H, Creatinine 1.57 H, Estim Creat Clear Calc 49.62, Est GFR (MDRD) Af Amer 59 L, Est GFR (MDRD) Non-Af 48 L, BUN/Creatinine Ratio 14.6, Glucose 134 H, Calcium 7.7 L 03/01/22 02:15: MRSA (PCR) Negative 03/01/22 05:01: POC Glucose 148 H Micro: Microbiology 02/28/22 21:00 Urine Catheter - Catheter Legionella Antigen - Final 02/28/22 21:00 Urine Catheter - Catheter Streptococcus pneumoniae Antigen (M - Final 02/28/22 23:25 Nasal Secretion SARS-CoV-2 & FLU Antigen (Rapid) - Final ABG Data ABG results: ABG 02/28/22 03/01/22 20:17 05:36 Specimen Type TETO ART Sample Site VENOUS R Radial pH 7.17 L* Bicarbonate Actual 30.2 H Total CO2 33 Base Excess 2 O2 Saturation 84 L O2 % 100 ABG pCO2 81.8 H* ABG pO2 64 L Bronson Test Positive VBG pH 7.29 L VBG pO2 37 VBG HCO3 30 H VBG Total CO2 32 VBG O2 Sat (Calc) 62 VBG Base Excess 3 POC Mix VBG pCO2 Pt Tmp 61.3 H Respiration Rate 12 O2 Delivery Device HFNC BiPAP Liter Flow 10.0 Tidal Volume 500 POC PEEP 10 Crit Call To/Read Back Yes Yes Blood Gas Notified Whom Dr. Santillan Blood Gas Notified Time 2016 Radiography Diagnostic Testing: Radiology Impression Chest X-Ray 02/28/22 21:18 IMPRESSION: 1. Heterogeneous airspace disease involving the left mid to lower lung is concerning for pneumonia in the appropriate clinical setting. Alternatively this could represent tumor. 2. Loculated small to moderate left pleural effusion suspected. 3. A left perihilar mass with interstitial extension is not excluded as well seen on recent chest CT. Electronically Signed: Kemal Alejandro MD at 22:02 EST , Assessment & Plan Assessment/Plan (1) Septic shock: PLAN: 2/2 pneumonia Vanc and pip/tazo follow up cx on norephi and vaso (2) Pneumonia: PLAN: broad spectrum abx COVID 19, flu negative. Legionella, strep ag negative etiology unclear Sputum culture (3) Acute kidney failure: PLAN: etiology unclear on IVF improving PLAN: Plan Chronic conditions: * Squamous cell Lung cancer * morbid obesity * GERD VTE prophylaxis: LMWH Code Status: DNRCCA, DNI
--- NOTE | 2022-03-01 08:00 | NURSING ---
Family at bedside discussing care for patient at this time with Dr Correa.
[2022-03-01] MEDS: LORazepam 2 MG/ML Syringe IV (08:43)
[2022-03-01] MEDS: Morphine 2 MG/ML Syringe IV ×2 (08:44→10:28)
--- NOTE | 2022-03-01 11:07 | NURSING ---
Patient passed with family present at bedside at 10:42am.
--- NOTE | 2022-03-01 11:18 | EXP.PCM_ITS ---
Preliminary Cause of Preliminary Cause of Preliminary Cause of : Shock and pneumonia Date of Admission: 03/01/22 Principle Diagnosis Problem List: Active and Suspected Problems (Updated 02/28/22 @ 23:[address] Ginger Santillan MD) Pneumonia (Acute) Septic shock (Acute) Acute kidney failure (Acute) Lung cancer (Acute) (1) Septic shock: PLAN: 2/2 pneumonia Vanc and pip/tazo follow up cx on norephi and vaso (2) Pneumonia: PLAN: broad spectrum abx COVID 19, flu negative. Legionella, strep ag negative etiology unclear Sputum culture (3) Acute kidney failure: PLAN: etiology unclear on IVF improving PLAN: Plan Chronic conditions: * Squamous cell Lung cancer * morbid obesity * GERD Patient at 1042 on March 01, 2022.
--- NOTE | 2022-03-01 11:54 | CHAPLAIN ---
Type of Pastoral Visit ___ Initial Visit ___ Follow-up Visit ___ On-call Visit ___ General Patient Visit ___ Spiritual Assessment ___ Family Conference _x__ Bereavement ___ Rapid Response ___ Code Blue ___ Other (describe below) Pastoral Care Referral From ___ Patient ___ Family ___ Nurse ___ Physician ___ [employer] ___ Senior Ux Developer _x__ Other (describe below) Sacrament/Intervention ___ Active listening ___ Anointing ___ Judaism ___ Bereavement ___ Communion ___ Marta exploration ___ ___ Life review ___ Prayer ___ Reconciliation ___ Sacrament of Sick ___ Supportive presence ___ Wedding _x__ Other (describe below) Pastoral Comments visit made at 11:05 a.m.; patient had already and family members had already left; moment of silence given in room in respect
== END 2022-03-01 13:30 | DRG 871 ==
LOC: ED 23:56 → ICU 03-01 03:23
PROVIDERS: Admitting Provider Hospitalist; Emergency Provider Emergency Medicine; PCP Family Medicine
DX: A41.9 Sepsis, unspecified organism (principal); J18.9 Pneumonia, unspecified organism; J96.21 Acute and chronic respiratory failure with hypoxia; R65.21 Severe sepsis with septic shock; J96.22 Acute and chronic respiratory failure with hypercapnia; N17.9 Acute kidney failure, unspecified; J44.0 Chronic obstructive pulmonary disease with (acute) lower respiratory infection; Z68.43 Body mass index [BMI] 50.0-59.9, adult; C34.90 Malignant neoplasm of unspecified part of unspecified bronchus or lung; C78.7 Secondary malignant neoplasm of liver and intrahepatic bile duct; I50.32 Chronic diastolic (congestive) heart failure; I11.0 Hypertensive heart disease with heart failure; E11.9 Type 2 diabetes mellitus without complications; E66.01 Morbid (severe) obesity due to excess calories; F17.210 Nicotine dependence, cigarettes, uncomplicated; E78.00 Pure hypercholesterolemia, unspecified; K21.9 Gastro-esophageal reflux disease without esophagitis; D69.59 Other secondary thrombocytopenia; Z92.21 Personal history of antineoplastic chemotherapy; Z86.16 Personal history of COVID-19; Z66 Do not resuscitate; Z99.81 Dependence on supplemental oxygen; T45.1X5A Adverse effect of antineoplastic and immunosuppressive drugs, initial encounter
CPT/HCPCS: 36600; 71045; 80048; 80053; 81001; 82550; 82803; 82962; 83605; 85025; 85610; 85730; 87040; 87086; 87428; 87449; 87641; 93005; 94002; 94640; 94762; 99252; 99285; J7030; J7040; J7050; A4216; G0463; J3490